=== PATIENT | male | born 1945 | race American Indian/Alaskan Native ===

== ENCOUNTER 2016-12-02 16:31 | Inpatient (IN) | payer MEDICARE, BC ==
[2016-12-02 16:32] VITALS: BMI 22.6
--- NOTE | 2016-12-02 16:42 | C.PDOC ---
History Of Present Illness Patient is a 71 y/o M with HTN, ESRD, CAD, anemia, hep C, presenting with rectal bleeding. Dr. Mckeon, PMD is aware that patient is being sent to ED. Time Seen by Provider: 12/02/16 16:33 Chief Complaint (Nursing): GI Problem Past Medical History Vital Signs: Last Vital Signs Temp 98.8 F 12/02/16 16:33 Pulse 85 12/02/16 16:33 Resp 20 12/02/16 16:33 BP 113/66 12/02/16 16:33 Pulse Ox 98 12/02/16 16:33 - Medical History PMH: CHF, Colonic Polyps, HIV, HTN, Chronic Kidney Disease Surgical History: - [facility] Procedures BYPASS TRACHEA TO CUTANEOUS WITH TRACH DEV, PERC APPROACH (04/02/15) C.A.T. SCAN OF ABDOMEN (06/21/03) ESOPHAGOGASTRODUODENOSCOPY [EGD] W/CLOSED BIOPSY (07/08/14) HEMODIALYSIS (08/03/14) INSERTION OF ENDOTRACHEAL AIRWAY INTO TRACHEA, VIA OPENING (04/02/15) INSERTION OF FEEDING DEVICE INTO STOMACH, PERC APPROACH (04/02/15) INSERTION OF INFUSION DEV INTO SUP VENA CAVA, PERC APPROACH (06/27/15) INTRODUCTION OF NUTRITIONAL INTO UP GI, VIA OPENING (06/27/15) NEBULIZER THERAPY (08/03/14) OCCUPATIONAL THERAPY (08/03/14) PACKED CELL TRANSFUSION (11/05/12) PERCUTAN NEEDLE BX OF LIVER (06/21/03) PERFORMANCE OF URINARY FILTRATION, MULTIPLE (06/27/15) PHYSICAL THERAPY NEC (08/03/14) RESPIRATORY VENTILATION, GREATER THAN 96 CONSECUTIVE HOURS (04/02/15) TRANSFUSE NONAUT PLATELETS IN PERIPH VEIN, PERC (04/02/15) TRANSFUSE NONAUT RED BLOOD CELLS IN PERIPH VEIN, PERC (06/27/15) TU DESTRUC BLADD LES NEC (11/20/12) Family History: States: Unknown Family Hx - Social History Hx Tobacco Use: No Hx Alcohol Use: No Hx Substance Use: No - Immunization History Hx Tetanus Toxoid Vaccination: No Hx Influenza Vaccination: Yes Hx Pneumococcal Vaccination: No Review Of Systems Review Of Systems: ROS cannot be obtained secondary to pt's inabilty to answer questions. Physical Exam - Physical Exam Appears: Chronically Ill, Other (cachetic) Head: Atraumatic, Normacephalic Eye(s): bilateral: Normal Inspection, PERRL, EOMI Neck: Supple Chest: Symmetrical Cardiovascular: Rhythm Regular Respiratory: Normal Breath Sounds, No Rales, No Rhonchi, No Wheezing Gastrointestinal/Abdominal: Soft, No Tenderness, No Mass, No Distention, Other ( peg tube to abdomen) Rectal: Other (bright red blood per rectum) Back: Other (decubitus ulcer) Extremity: Other (edema to b/l upper extremities, thin lower extremities. spontaneous ROM x 4) Neurological/Psych: Other (Alert) ED Course And Treatment - Laboratory Results Result Diagrams: 12/02/16 17:10 12/02/16 17:10 Medical Decision Making Medical Decision Making: Patient presenting with rectal bleeding. Patient hemodynamically stable. Cxray shows "Small left pleural effusion and/or consolidation. Patchy lingular infiltrate. Mediastinal prominence. Right peritracheal opacity, possibly tortuous vasculature. If indicated CT with IV contrast may be considered for further evaluation. Heart size appears borderline enlarged." Patient has normal wbc and no fever. Hgb:9.9 and platelets and coagulation studies WNL. Patient started on protonix and given clear diet. Spoke to Dr. Mckeon and patient to be transferred to [facility]. Disposition - Disposition Disposition: HOSPITALIZED Disposition Time: 18:51 Condition: FAIR - Clinical Impression Clinical Impression: Rectal bleeding
[2016-12-02 17:21] LABS: BASO # 0.1 K/uL (0.0-0.2); BASO % 0.7 % (0.0-2.0); EOS # 0.1 K/uL (0.0-0.7); HEMATOCRIT 29.6 % (35.0-51.0); LYMPH # 2.5 K/uL (1.0-4.3); MEAN CELL VOLUME 92.2 fL (80.0-94.0); MEAN CORPUSCULAR HEMOGLOBIN 30.8 pg (27.0-31.0); MEAN CORPUSCULAR HGB CONC 33.4 g/dL (33.0-37.0); MEAN PLATELET VOLUME 7.8 fL (7.2-11.7); MONO # 0.8 K/uL (0.0-0.8); MONO % 10.7 % (0.0-10.0); NRBC % 0.1 % (0.0-2.0); RED CELL DISTRIBUTION WIDTH 17.9 % (11.5-14.5); WHITE BLOOD COUNT 7.9 K/uL (4.8-10.8)
[2016-12-02 17:34] LABS: ALB/GLOB RATIO 0.7 (1.0-2.1); BILIRUBIN,TOTAL 0.6 mg/dL (0.2-1.3); TOTAL PROTEIN 6.2 g/dL (6.3-8.3)
[2016-12-02 17:35] LABS: CALCIUM 9.3 mg/dl (8.6-10.4)
--- NOTE | 2016-12-02 17:50 | RAD ---
HISTORY: rectal bleeding COMPARISON: Chest x-ray performed 07/01/15 TECHNIQUE: Chest, one view. FINDINGS: LUNGS: Small left pleural effusion and/or consolidation. Patchy lingular infiltrate. No definite pneumothorax. Please note that chest x-ray has limited sensitivity for the detection of pulmonary masses. PLEURA: No significant pleural effusion identified. No definite pneumothorax . CARDIOVASCULAR: Mediastinal prominence. Right peritracheal opacity, possibly tortuous vasculature. Heart size appears borderline enlarged. Atherosclerotic calcifications. OSSEOUS STRUCTURES: No acute osseous abnormality identified. VISUALIZED UPPER ABDOMEN: Unremarkable. OTHER FINDINGS: None. IMPRESSION: Small left pleural effusion and/or consolidation. Patchy lingular infiltrate. Mediastinal prominence. Right peritracheal opacity, possibly tortuous vasculature. If indicated CT with IV contrast may be considered for further evaluation. Heart size appears borderline enlarged.
[2016-12-02] MEDS: Sodium Chloride 0.9% 1,000 ML IV SCH (18:27)
[2016-12-02] MEDS ORDERED: Acetaminophen 650mg/20.3ml solution UD NG PRN (19:40)
[2016-12-02] MEDS ORDERED: Raltegravir 100 mg Chewable Tab PO SCH (19:45)
--- NOTE | 2016-12-02 20:23 | CP.PCM.CON ---
History of Present Illness - History of Present Illness History of Present Illness: pt is seen and examined, full consult is joanna antunez #[id number] for hd in am,start peg feeding Past Patient History - Tetanus Immunizations Tetanus Immunization: Unknown - Past Medical History & Family History Past Medical History?: Yes - Past Social History Smoking Status: Former Smoker - CARDIAC Hx Congestive Heart Failure: Yes Hx Hypertension: Yes - PULMONARY Hx Respiratory Disorders: No Other/Comment: tracheostomy - NEUROLOGICAL Hx Neurological Disorder: No - HEENT Hx HEENT Problems: No - RENAL Hx Chronic Kidney Disease: Yes - ENDOCRINE/METABOLIC Hx Endocrine Disorders: No - HEMATOLOGICAL/ONCOLOGICAL Hx Human Immunodeficiency Virus (HIV): Yes - INTEGUMENTARY Hx Dermatological Problems: No Other/Comment: multiple skin ulcers, bilat back, sacro-coccyx, healing sores both lower exts and buttocks sacral stage 4 ulcer [id number],. left hip unstageable,,stage 3 bilat back,right side 6cm x 2 cm. right mid back skin ulcer stage 2, 6cm x 3 cm,, multiple hip areas in healing stage dsd on back and sacral ulcers, - MUSCULOSKELETAL/RHEUMATOLOGICAL Hx Falls: No - GASTROINTESTINAL Hx Gastrointestinal Disorders: Yes Hx Gastroesophageal Reflux: Yes Hx Hemorrhoids: Yes Other/Comment: PEG tube in place - GENITOURINARY/GYNECOLOGICAL Hx Genitourinary Disorders: Yes Hx Prostate Cancer: Yes (2009 HAD RADIATION WITH SEED IMPLANT; NO SURGERY) Other/Comment: ESRD ON HD pt is anuric - PSYCHIATRIC Hx Substance Use: No - ANESTHESIA Hx Anesthesia: Yes Hx Anesthesia Reactions: No Hx Malignant Hyperthermia: No Meds Allergies/Adverse Reactions: Allergies Allergy/AdvReac Type Severity Reaction Status Date / Time No Known Allergies Allergy Verified 12/02/16 16:50 - Medications Medications: Current Medications Acetaminophen (Tylenol 650mg/20.3ml Solution Ud) 650 mg NG Q6 PRN PRN Reason: Fever >100.4 F Last Admin: 12/02/16 20:15 Dose: 650 mg Albuterol/Ipratropium (Duoneb 3 Mg/0.5 Mg (3 Ml) Ud) 3 ml IH RQ6 [facility] Amlodipine Besylate (Norvasc) 10 mg PO DAILY [facility] Ascorbic Acid (Vitamin C 500 Mg Tab) 500 mg PO BID [facility] Clonidine HCl (Catapres Tts1 0.1 Mg/24 Hr) 1 patch TD QWK [facility] Famotidine (Pepcid) 20 mg PO DAILY [facility] Fosamprenavir Calcium (Lexiva) 700 mg PO BID [facility] Sodium Chloride (Sodium Chloride 0.9%) 1,000 mls @ 60 mls/hr IV .[id number] [facility] Last Admin: 12/02/16 18:27 Dose: 60 mls/hr Levetiracetam (Keppra) 500 mg PO Q12H [facility] Last Admin: 12/02/16 20:11 Dose: 500 mg Piperacillin Sod/Tazobactam Sod (Zosyn) 2.25 gm IV Q6 [facility] Raltegravir (Isentress Chewable) 400 mg PO BID [facility] Ritonavir (Norvir) 100 mg PO DAILY [facility] Zinc Sulfate (Zinc Sulfate 220 Mg Cap) 220 mg PO DAILY [facility] Results - Vital Signs Recent Vital Signs: Last Vital Signs Temp 98.8 F 12/02/16 16:33 Pulse 87 12/02/16 19:25 Resp 16 12/02/16 19:25 BP 111/66 12/02/16 19:25 Pulse Ox 98 12/02/16 19:25 - Labs Result Diagrams: 12/02/16 17:10 12/02/16 17:10
[2016-12-02] MEDS: Albuterol-Ipratrop 3 mg / 0.5 (3 ml) UD IH SCH (22:34)
[2016-12-03] MEDS ORDERED: Piperacillin/Tazobact 2.25 gm Inj IV SCH
[2016-12-03] MEDS: Piperacill/Tazo 2.25gm in Dex 2.25 GM/50 ML BAG IVPB SCH ×5 (00:13→23:42)
[2016-12-03] MEDS: Albuterol-Ipratrop 3 mg / 0.5 (3 ml) UD IH SCH ×4 (01:12→19:20)
--- NOTE | 2016-12-03 05:16 | CON ---
DATE: LOCATION: The patient is located in room 567. REQUESTED BY: Chayito Mckeon MD REASON FOR FOLLOWUP: Endstage renal disease and continuation of the hemodialysis. SUBJECTIVE: Mr. Fontenot is a 71-year-old elderly very pleasant male with a past medical history significant for hypertension, polycystic kidney disease, chronic hepatitis C, endstage renal disease, prostate CA, status post radiation therapy, status post fall more than a year ago followed by tricompartmental bleed requiring intubation and subsequently, the patient underwent tracheostomy and PEG tube placement, and when transferred to [facility], from there after few months the patient was transferred to [facility]. Now, the patient is being admitted to [facility] and [facility] frequently for multiple medical problems. Now the patient was snagged from correction with possible rectal bleed. As per the patient he did not realize and when they are cleaning him the staff found bleeding and the patient was sent to the [facility] for further evaluation. The patient is complaining of lower back pain and difficult to lie down due to pain and ulcers. The patient is not in distress. Denies any chest pain or palpitation. Denies any fever or cough. No abdominal pain. No nausea, vomiting, or diarrhea. PAST MEDICAL HISTORY: Significant for hypertension, polycystic kidney disease, chronic hepatitis C, endstage renal disease, and prostate CA. PAST SURGICAL HISTORY: Status post radiation therapy long time ago, status post tracheostomy, and PEG and clotted left upper extremity AV fistula and status post Perm-A-Cath, and questionable hemorrhoids and status post colonoscopy and multiple decubitus ulcers. ALLERGIES: NO KNOWN DRUG ALLERGIES. SOCIAL HISTORY: No smoking. No alcohol. No drugs. PERSONAL HISTORY: He is and he has a very supportive family. FAMILY HISTORY: Not significant. CURRENT MEDICATIONS: Include clonidine 0.1 mg patch every weekly, DuoNeb inhaler, Isentress 400 mg p.o. b.i.d., Keppra 500 mg p.o. q.12 hours, and Lexiva 700 mg p.o. b.i.d. daily, amlodipine 10 mg daily, Norvir 100 mg daily, Pepcid 20 mg p.o. daily, IV fluids, normal saline at 60 mL per hour, Tylenol, vitamin C 500 mg p.o. b.i.d., zinc sulfate 220 mg p.o. daily, and Zosyn 2.25 g IV q.6 hours. REVIEW OF SYSTEMS: Significant rectal bleed and multiple decubitus ulcers on the back and in the sacral region and gluteal region on the right side. PHYSICAL EXAMINATION GENERAL: Mr. Fontenot is a 71-year-old elderly very cachectic male not in acute distress with multiple decubitus ulcers. VITAL SIGNS: As follows: Blood pressure 102/68, pulse 81, respirations 20, temperature 97.6, saturation 95%, height 6 feet 2 inches, and weight 180 pounds. HEENT: Pupils are normal. Reactive to light and accommodation. Conjunctivae pink. Sclerae anicteric. Tongue is moist. Trachea is midline. CARDIOVASCULAR: Preston at the fifth intercostal space, midclavicular line. S1 and S2 audible. No murmur or gallop. LUNGS: Symmetric in both sides, bilateral breath sounds present. Clear on auscultation. ABDOMEN: Normal in appearance. Soft, tympanic. No guarding. No rigidity. No hepatosplenomegaly. The patient has PEG tube present. CENTRAL NERVOUS SYSTEMS: The patient is alert, awake and oriented x2-3. Sensory and motor system is grossly within normal limits. EXTREMITIES: No cyanosis. No clubbing. No edema in the lower extremities. The patient has swelling in both upper extremities and also the patient has multiple decubitus ulcers, the one on the middle at the sacral region was about 7-8 cm in diameter and appears stage II, and the patient also has unstageable sacral decubitus in the gluteal region. LABORATORY DATA: Include as follows: As of 12/02/2016, WBC 7.9, hemoglobin 9.9, hematocrit 29.6, and platelet 247. PT 11.5, PTT 24. Sodium 133, potassium 4, chloride 96, CO2 28, BUN 34, creatinine 3.4, glucose 91, and calcium 7.3. Total bilirubin 0.6, AST 23, ALT 21, alkaline phosphatase 136. Total protein 6.2 and albumin 2.5. ASSESSMENT: In summary, Mr. Fontenot is a 71-year-old elderly male with a history of hypertension, endstage renal disease, polycystic kidney disease, chronic hepatitis C, prostate carcinoma, status post radiation therapy and rectal bleed, and also bilateral upper extremity swelling and status post fall about more than a year ago with a tricompartmental bleed, status post tracheostomy and PEG and resident of correction for the long time for almost 1 year. PLAN: 1. Endstage renal disease. Continue hemodialysis 3 times a week, Tuesday, Tuesday, and Tuesday. 2. Hypertension. Blood pressure is stable. Continue his current medications clonidine and Norvasc. 3. Anemia. Rule out rectal bleed. 4. Sacral decubiti. Consider general surgery and wound care evaluation and also we will start feeding through the PEG tube Nepro 30 mL per hour and adjust as further dietary evaluation and recommendations. We will schedule for hemodialysis in the a.m. Discussed with the patient's daughter and the patient's at bedside. Overall, prognosis is guarded. Thank you for allowing me participate in your the patient's care. Continue all his current medications. Raul Geller MD
[2016-12-03] MEDS ORDERED: PROTEIN SUPPLEMENT 275 GM PO SCH (10:00)
--- NOTE | 2016-12-03 10:25 | CP.PCM.HP ---
Past Patient History - Tetanus Immunizations Tetanus Immunization: Unknown - Past Medical History & Family History Past Medical History?: Yes - Past Social History Smoking Status: Former Smoker - CARDIAC Hx Congestive Heart Failure: Yes Hx Hypertension: Yes - PULMONARY Hx Respiratory Disorders: No Other/Comment: tracheostomy - NEUROLOGICAL Hx Neurological Disorder: No - HEENT Hx HEENT Problems: No - RENAL Hx Chronic Kidney Disease: Yes - ENDOCRINE/METABOLIC Hx Endocrine Disorders: No - HEMATOLOGICAL/ONCOLOGICAL Hx Human Immunodeficiency Virus (HIV): Yes - INTEGUMENTARY Hx Dermatological Problems: No Other/Comment: multiple skin ulcers, bilat back, sacro-coccyx, healing sores both lower exts and buttocks sacral stage 4 ulcer [id number],. left hip unstageable,,stage 3 bilat back,right side 6cm x 2 cm. right mid back skin ulcer stage 2, 6cm x 3 cm,, multiple hip areas in healing stage dsd on back and sacral ulcers, - MUSCULOSKELETAL/RHEUMATOLOGICAL Hx Falls: No - GASTROINTESTINAL Hx Gastrointestinal Disorders: Yes Hx Gastroesophageal Reflux: Yes Hx Hemorrhoids: Yes Other/Comment: PEG tube in place - GENITOURINARY/GYNECOLOGICAL Hx Genitourinary Disorders: Yes Hx Prostate Cancer: Yes (2010 HAD RADIATION WITH SEED IMPLANT; NO SURGERY) Other/Comment: ESRD ON HD pt is anuric - PSYCHIATRIC Hx Substance Use: No - ANESTHESIA Hx Anesthesia: Yes Hx Anesthesia Reactions: No Hx Malignant Hyperthermia: No Meds Allergies/Adverse Reactions: Allergies Allergy/AdvReac Type Severity Reaction Status Date / Time No Known Allergies Allergy Verified 12/02/16 16:50 Physical Exam - Constitutional Appears: Well - Head Exam Head Exam: ATRAUMATIC, NORMAL INSPECTION, NORMOCEPHALIC - Eye Exam Eye Exam: EOMI, Normal appearance, PERRL Pupil Exam: NORMAL ACCOMODATION, PERRL - ENT Exam ENT Exam: Mucous Membranes Moist, Normal Exam - Neck Exam Neck exam: Positive for: Normal Inspection - Respiratory Exam Respiratory Exam: Decreased Breath Sounds - Cardiovascular Exam Cardiovascular Exam: REGULAR RHYTHM, +S1, +S2 - GI/Abdominal Exam GI & Abdominal Exam: Diminished Bowel Sounds, Soft - Rectal Exam Rectal Exam: Deferred Results - Vital Signs Recent Vital Signs: Last Vital Signs Temp 97.4 F L 12/03/16 07:10 Pulse 74 12/03/16 07:10 Resp 20 08/11/17 07:10 BP 122/75 12/03/16 07:10 Pulse Ox 98 12/03/16 07:10 - Labs Result Diagrams: 12/02/16 17:10 12/02/16 17:10 Labs: Laboratory Results - last 24 hr 12/02/16 21:12 POC Glucose (mg/dL) 79
--- NOTE | 2016-12-03 11:25 | CP.PCM.PN ---
Subjective - Date & Time of Evaluation Date of Evaluation: 12/03/16 Time of Evaluation: 09:50 - Subjective Subjective: Medicine Note- Dr. Mckeon's service Patient was seen and examined at bedside. Patient was brought in due to concerns of rectal bleeding. Patient reports no acute complaints at this time except that he has pain from his decubitus ulcers. Patient is awake and alert but does not know the full details of his history. No events overnight, per nursing. Objective - Vital Signs/Intake and Output Vital Signs (last 24 hours): Temp Pulse Resp BP Pulse Ox 97.4 F L 74 20 122/75 98 12/03/16 07:10 12/03/16 07:10 12/03/16 07:10 12/03/16 07:10 12/03/16 07:10 Intake and Output: 12/03/16 12/03/16 06:59 18:59 Intake Total 340 Output Total 50 Balance 290 - Medications Medications: Current Medications Acetaminophen (Tylenol 650mg/20.3ml Solution Ud) 650 mg NG Q6 PRN PRN Reason: Fever >100.4 F Last Admin: 12/02/16 20:15 Dose: 650 mg Albuterol/Ipratropium (Duoneb 3 Mg/0.5 Mg (3 Ml) Ud) 3 ml IH RQ6 [facility] Last Admin: 12/03/16 07:22 Dose: 3 ml Amlodipine Besylate (Norvasc) 10 mg PO DAILY [facility] Ascorbic Acid (Vitamin C 500 Mg Tab) 500 mg PO BID [facility] Clonidine HCl (Catapres Tts1 0.1 Mg/24 Hr) 1 patch TD QWK [facility] Epoetin Chuck (Procrit) 10,000 unit IV MWF [facility] Famotidine (Pepcid) 20 mg PO DAILY [facility] Fosamprenavir Calcium (Lexiva) 700 mg PO BID [facility] Sodium Chloride (Sodium Chloride 0.9%) 1,000 mls @ 60 mls/hr IV .[id number] [facility] Last Admin: 12/02/16 18:27 Dose: 60 mls/hr Piperacillin Sod/Tazobactam Sod (Zosyn 2.25 Gm Iv Premix) 2.25 gm in 50 mls @ 100 mls/hr IVPB Q6 [facility] Last Admin: 12/03/16 05:02 Dose: 100 mls/hr Levetiracetam (Keppra) 500 mg PO Q12H [facility] Last Admin: 12/03/16 08:43 Dose: 500 mg Paricalcitol (Zemplar) 2 mcg IV MWF [facility] Raltegravir (Isentress) 400 mg PO BID [facility] Last Admin: 12/02/16 21:38 Dose: 400 mg Ritonavir (Norvir) 100 mg PO DAILY [facility] Zinc Sulfate (Zinc Sulfate 220 Mg Cap) 220 mg PO DAILY [facility] - Labs Labs: PT 11.5 SECONDS (9.7-12.2) 12/02/16 17:10 INR 1.0 12/02/16 17:10 APTT 24 SECONDS (21-34) 12/02/16 17:10 - Constitutional Appears: Non-toxic, No Acute Distress - Head Exam Head Exam: ATRAUMATIC, NORMAL INSPECTION, NORMOCEPHALIC - Eye Exam Pupil Exam: NORMAL ACCOMODATION, PERRL - ENT Exam ENT Exam: Mucous Membranes Moist - Respiratory Exam Respiratory Exam: Clear to Ausculation Bilateral, NORMAL BREATHING PATTERN. absent: Prolonged Expiratory Phase, Rales, Rhonchi, Wheezes - Cardiovascular Exam Cardiovascular Exam: REGULAR RHYTHM, +S1, +S2 - GI/Abdominal Exam GI & Abdominal Exam: Soft, Normal Bowel Sounds. absent: Tenderness, Diminished Bowel Sounds, Hypoactive Bowel Sounds - Extremities Exam Extremities Exam: Normal Capillary Refill - Neurological Exam Neurological Exam: Alert, Awake, Oriented x3 - Psychiatric Exam Psychiatric exam: Normal Affect, Normal Mood - Skin Skin Exam: Dry, Normal Color, Warm. absent: Intact Additional comments: Multiple decubitus ulcers, largest one about 7-8cm in diameter, appears to be stage 2-3. Assessment and Plan - Assessment and Plan (Free Text) Assessment: Rectal Bleeding Consult GI- Dr. Damon Hgb 9.9 today IVF NS @ 60cc/hr Multiple Sacral Decubitus Ulcers, varying stages Wound Care Nurse referral Consult ID- Dr. Hernadez ESRD on HD Consult Nephrology- Dr. Geller ESRD MWF Procrit 1000U IV MWF Zemplar 2mcg IV MWF Renal diet Hepatitis C Continue home med: Isentress 400mg PO BID Norvir 100mg PO Daily Lexiva 700mg PO BID Hypertension Norvasc 10mg PO Daily CLonidine 0.1mg Q24h Prophylactic Measure Protonix 40mg PO Daily [facility] Anticoag contraindicated due to rectal bleed
[2016-12-03] MEDS: Epoetin Alfa 10,000 unit/ml Dialysis IV SCH (11:35)
[2016-12-03] MEDS: Paricalcitol 2 mcg/ml Inj IV SCH (11:36)
--- NOTE | 2016-12-03 12:25 | CP.PCM.CON ---
History of Present Illness - History of Present Illness History of Present Illness: 71 yo male with quadraparesis s/p fall with chronic SDH 2014 admitted with rectal bleed r/o malignancy and multiple bed sores from [facility] HIV, Hep C, Prostate Ca, CKD on HD, Review of Systems - Constitutional Constitutional: As Per HPI, Anorexia, Weight Loss - EENT Eyes: absent: As Per HPI, Blind Spots, Blurred Vision, Change in Vision, Decreased Night Vision, Diplopia, Discharge, Dry Eye, Exophthalmos, Floaters, Irritation, Itchy Eyes, Loss of Peripheral Vision, Pain, Photophobia, Requires Corrective Lenses, Sees Flashes, Spots in Vision, Tunnel Vision, Other Visual Disturbances, Loss of Vision, Other Ears: absent: As Per HPI, Decreased Hearing, Ear Discharge, Ear Pain, Tinnitus, Abnormal Hearing, Disequilibrium, Dizziness, Other Nose/Mouth/Throat: absent: As Per HPI, Epistaxis, Nasal Congestion, Nasal Discharge, Nasal Obstruction, Nasal Trauma, Nose Pain, Post Nasal Drip, Sinus Pain, Sinus Pressure, Bleeding Gums, Change in Voice, Dental Pain, Dry Mouth, Dysphagia, Halitosis, Hoarsness, Lip Swelling, Mouth Lesions, Mouth Pain, Odynophagia, Sore Throat, Throat Swelling, Tongue Swelling, Facial Pain, Neck Pain, Neck Mass, Other - Cardiovascular Cardiovascular: absent: As Per HPI, Acrocyanosis, Chest Pain, Chest Pain at Rest , Chest Pain with Activity, Claudication, Diaphoresis, Dyspnea, Dyspnea on Exertion, Edema, Irregular Heart Rhythm, Pain Radiating to Arm/Neck/Jaw, Leg Edema, Leg Ulcers, Lightheadedness, Orthopnea, Palpitations, Paroxysmal Nocturnal Dyspnea, Pedal Edema, Radiating Pain, Rapid Heart Rate, Slow Heart Rate, Syncope, Other - Respiratory Respiratory: absent: As Per HPI, Cough, Dyspnea, Hemoptysis, Dyspnea on Exertion , Wheezing, Snoring, Stridor, Pain on Inspiration, Chest Congestion, Excessive Mucous Production, Change in Mucous Color, Pain with Coughing, Other - Gastrointestinal Gastrointestinal: As Per HPI - Genitourinary Genitourinary: As Per HPI - Musculoskeletal Musculoskeletal: As Per HPI - Integumentary Integumentary: As Per HPI, Wounds - Neurological Neurological: As Per HPI - Psychiatric Psychiatric: absent: As Per HPI, Abnormal Sleep Pattern, Anhedonia, Anxiety, Auditory Hallucinations, Behavioral Changes, Change in Appetite, Change in Libido, Confusion, Depression, Difficulty Concentrating, Hallucinations, Homicidal Ideation, Hopelessness, Irritability, Memory Loss, Mood Swings, Panic Attacks, Paranoia, Suicidal Ideation, Visual Hallucinations, Tactile Hallucinations, Other - Endocrine Endocrine: absent: As Per HPI, Change in Body Appearance, Change in Libido, Cold Intolorance, Deepening of Voice, Excessive Sweating, Fatigue, Flushing, Heat Intolorance, Increase in Ring/Shoe/Hat Size, Palpitations, Polydipsia, Polyphagia, Polyuria, Other - Hematologic/Lymphatic Hematologic: absent: As Per HPI, Easy Bleeding, Easy Bruising, Lymphadenopathy, Other Past Patient History - Tetanus Immunizations Tetanus Immunization: Unknown - Past Medical History & Family History Past Medical History?: Yes - Past Social History Smoking Status: Former Smoker - CARDIAC Hx Congestive Heart Failure: Yes Hx Hypertension: Yes - PULMONARY Hx Respiratory Disorders: No Other/Comment: tracheostomy - NEUROLOGICAL Hx Neurological Disorder: No - HEENT Hx HEENT Problems: No - RENAL Hx Chronic Kidney Disease: Yes - ENDOCRINE/METABOLIC Hx Endocrine Disorders: No - HEMATOLOGICAL/ONCOLOGICAL Hx Human Immunodeficiency Virus (HIV): Yes - INTEGUMENTARY Hx Dermatological Problems: No Other/Comment: multiple skin ulcers, bilat back, sacro-coccyx, healing sores both lower exts and buttocks sacral stage 4 ulcer [id number],. left hip unstageable,,stage 3 bilat back,right side 6cm x 2 cm. right mid back skin ulcer stage 2, 6cm x 3 cm,, multiple hip areas in healing stage dsd on back and sacral ulcers, - MUSCULOSKELETAL/RHEUMATOLOGICAL Hx Falls: No - GASTROINTESTINAL Hx Gastrointestinal Disorders: Yes Hx Gastroesophageal Reflux: Yes Hx Hemorrhoids: Yes Other/Comment: PEG tube in place - GENITOURINARY/GYNECOLOGICAL Hx Genitourinary Disorders: Yes Hx Prostate Cancer: Yes (2010 HAD RADIATION WITH SEED IMPLANT; NO SURGERY) Other/Comment: ESRD ON HD pt is anuric - PSYCHIATRIC Hx Substance Use: No - ANESTHESIA Hx Anesthesia: Yes Hx Anesthesia Reactions: No Hx Malignant Hyperthermia: No Meds Allergies/Adverse Reactions: Allergies Allergy/AdvReac Type Severity Reaction Status Date / Time No Known Allergies Allergy Verified 12/02/16 16:50 - Medications Medications: Current Medications Acetaminophen (Tylenol 650mg/20.3ml Solution Ud) 650 mg NG Q6 PRN PRN Reason: Fever >100.4 F Last Admin: 12/02/16 20:15 Dose: 650 mg Albuterol/Ipratropium (Duoneb 3 Mg/0.5 Mg (3 Ml) Ud) 3 ml IH RQ6 [facility] Last Admin: 12/03/16 07:22 Dose: 3 ml Amlodipine Besylate (Norvasc) 10 mg PO DAILY [facility] Ascorbic Acid (Vitamin C 500 Mg Tab) 500 mg PO BID [facility] Clonidine HCl (Catapres Tts1 0.1 Mg/24 Hr) 1 patch TD QWK [facility] Epoetin Chuck (Procrit) 10,000 unit IV MWF [facility] Last Admin: 12/03/16 11:35 Dose: 10,000 unit Famotidine (Pepcid) 20 mg PO DAILY [facility] Fosamprenavir Calcium (Lexiva) 700 mg PO BID [facility] Sodium Chloride (Sodium Chloride 0.9%) 1,000 mls @ 60 mls/hr IV .[id number] [facility] Last Admin: 12/02/16 18:27 Dose: 60 mls/hr Piperacillin Sod/Tazobactam Sod (Zosyn 2.25 Gm Iv Premix) 2.25 gm in 50 mls @ 100 mls/hr IVPB Q6 [facility] Last Admin: 12/03/16 05:02 Dose: 100 mls/hr Levetiracetam (Keppra) 500 mg PO Q12H [facility] Last Admin: 12/03/16 08:43 Dose: 500 mg Paricalcitol (Zemplar) 2 mcg IV MWF [facility] Last Admin: 12/03/16 11:36 Dose: 2 mcg Raltegravir (Isentress) 400 mg PO BID [facility] Last Admin: 12/02/16 21:38 Dose: 400 mg Ritonavir (Norvir) 100 mg PO DAILY [facility] Zinc Sulfate (Zinc Sulfate 220 Mg Cap) 220 mg PO DAILY [facility] Physical Exam - Constitutional Appears: Cachectic, Chronically Ill - Head Exam Head Exam: NORMOCEPHALIC - Eye Exam Eye Exam: PERRL. absent: Scleral icterus - ENT Exam ENT Exam: Mucous Membranes Dry, Normal External Ear Exam - Neck Exam Neck exam: Negative for: Lymphadenopathy - Respiratory Exam Respiratory Exam: Decreased Breath Sounds, Clear to Auscultation Bilateral - Cardiovascular Exam Cardiovascular Exam: REGULAR RHYTHM, +S1, +S2 - GI/Abdominal Exam GI & Abdominal Exam: Diminished Bowel Sounds, Soft. absent: Tenderness - Rectal Exam Rectal Exam: Deferred - Exam Exam: NORMAL INSPECTION - Extremities Exam Extremities exam: Negative for: pedal edema - Back Exam Back exam: absent: CVA tenderness (L), CVA tenderness (R) Additional comments: multiple skin ulcers, bilat back, sacro-coccyx, healing sores both lower exts and buttocks sacral stage 4 ulcer [id number] 4,. left hip unstageable,,stage 3 bilat back,right side 6cm x 2 cm. right mid back skin ulcer stage 2, 6cm x 3 cm ,, multiple hip areas in healing stage dsd on back and sacral ulcers, - Neurological Exam Neurological exam: Alert, CN II-XII Intact - Psychiatric Exam Psychiatric exam: Depressed - Skin Skin Exam: Abrasion Additional comments: multiple skin ulcers, bilat back, sacro-coccyx, healing sores both lower exts and buttocks sacral stage 4 ulcer [id number] 4,. left hip unstageable,,stage 3 bilat back,right side 6cm x 2 cm. right mid back skin ulcer stage 2, 6cm x 3 cm ,, multiple hip areas in healing stage dsd on back and sacral ulcers, Results - Vital Signs Recent Vital Signs: Last Vital Signs Temp 97.4 F L 12/03/16 10:20 Pulse 77 12/03/16 10:20 Resp 20 12/03/16 10:20 BP 122/68 12/03/16 11:50 Pulse Ox 97 12/03/16 10:20 - Labs Result Diagrams: 12/02/16 17:10 12/02/16 17:10 Labs: Laboratory Results - last 24 hr 12/02/16 21:12 POC Glucose (mg/dL) 79 Assessment & Plan (1) Rectal bleeding Status: Acute (2) Anemia Status: Acute (3) CHF (congestive heart failure) Status: Acute (4) Decubitus skin ulcer Status: Acute (5) ESRD (end stage renal disease) Status: Acute (6) End stage renal disease on dialysis Status: Acute - Assessment and Plan (Free Text) Assessment: panculture cont iv antibiotics GI eval/ imaging consider rx for Hep C once stable
--- NOTE | 2016-12-03 14:32 | CP.PCM.CON ---
<Randal Mkceon - Last Filed: 12/03/16 14:53> History of Present Illness - History of Present Illness History of Present Illness: PGY4 Initial GI Consult Kian Fontenot is a 71 yo male with quadraparesis s/p fall with chronic SDH 2015 admitted with rectal bleed r/o malignancy and multiple bed sores from [facility] who presents with possible GI bleed. As per pt there has been no report of GI bleed. He denies any hematemesis, BRBPR, melena. Pt states that he may have had some episodes in the past but denies any episodes recently. Since the pt has been in the hopital, there is no report of gross GI bleed. Hgb has been stable compared to his baseline due to anemia of chronic disease. He denies any colonoscopy or EGD. Pt states that he will likely refuse a colonscopy even if its offered. PMH: CKD with HD, CHF, HTN, prostate CA with seeds implant, HIV, Hep C, PEG, Stage $, large sacral pressure sore, Intracranial bleeding PSH: AV fistula Family Hx: reviewed and not pertinent Social Hx: former smokerr, quit smoking 15 years ago, denies EtOH use, denies recreational drug use, , retired elementary school social worker Endoscopy hx: unknown, but pt has a PEG so king had an EGD at some point Past Patient History - Tetanus Immunizations Tetanus Immunization: Unknown - Past Medical History & Family History Past Medical History?: Yes - Past Social History Smoking Status: Former Smoker - CARDIAC Hx Congestive Heart Failure: Yes Hx Hypertension: Yes - PULMONARY Hx Respiratory Disorders: No Other/Comment: tracheostomy - NEUROLOGICAL Hx Neurological Disorder: No - HEENT Hx HEENT Problems: No - RENAL Hx Chronic Kidney Disease: Yes - ENDOCRINE/METABOLIC Hx Endocrine Disorders: No - HEMATOLOGICAL/ONCOLOGICAL Hx Human Immunodeficiency Virus (HIV): Yes - INTEGUMENTARY Hx Dermatological Problems: No Other/Comment: multiple skin ulcers, bilat back, sacro-coccyx, healing sores both lower exts and buttocks sacral stage 4 ulcer [id number] 4,. left hip unstageable,,stage 3 bilat back,right side 6cm x 2 cm. right mid back skin ulcer stage 2, 6cm x 3 cm,, multiple hip areas in healing stage dsd on back and sacral ulcers, - MUSCULOSKELETAL/RHEUMATOLOGICAL Hx Falls: No - GASTROINTESTINAL Hx Gastrointestinal Disorders: Yes Hx Gastroesophageal Reflux: Yes Hx Hemorrhoids: Yes Other/Comment: PEG tube in place - GENITOURINARY/GYNECOLOGICAL Hx Genitourinary Disorders: Yes Hx Prostate Cancer: Yes (2009 HAD RADIATION WITH SEED IMPLANT; NO SURGERY) Other/Comment: ESRD ON HD pt is anuric - PSYCHIATRIC Hx Substance Use: No - ANESTHESIA Hx Anesthesia: Yes Hx Anesthesia Reactions: No Hx Malignant Hyperthermia: No Meds Allergies/Adverse Reactions: Allergies Allergy/AdvReac Type Severity Reaction Status Date / Time No Known Allergies Allergy Verified 12/02/16 16:50 - Medications Medications: Current Medications Acetaminophen (Tylenol 650mg/20.3ml Solution Ud) 650 mg NG Q6 PRN PRN Reason: Fever >100.4 F Last Admin: 12/02/16 20:15 Dose: 650 mg Albuterol/Ipratropium (Duoneb 3 Mg/0.5 Mg (3 Ml) Ud) 3 ml IH RQ6 [facility] Last Admin: 12/03/16 13:12 Dose: Not Given Amlodipine Besylate (Norvasc) 10 mg PO DAILY [facility] Last Admin: 12/03/16 14:10 Dose: 10 mg Ascorbic Acid (Vitamin C 500 Mg Tab) 500 mg PO BID [facility] Last Admin: 12/03/16 14:10 Dose: 500 mg Clonidine HCl (Catapres Tts1 0.1 Mg/24 Hr) 1 patch TD QWK [facility] Epoetin Chuck (Procrit) 10,000 unit IV MWF [facility] Last Admin: 12/03/16 11:35 Dose: 10,000 unit Famotidine (Pepcid) 20 mg PO DAILY [facility] Last Admin: 12/03/16 14:10 Dose: 20 mg Fosamprenavir Calcium (Lexiva) 700 mg PO BID [facility] Last Admin: 12/03/16 14:10 Dose: 700 mg Sodium Chloride (Sodium Chloride 0.9%) 1,000 mls @ 60 mls/hr IV .[id number] [facility] Last Admin: 12/02/16 18:27 Dose: 60 mls/hr Piperacillin Sod/Tazobactam Sod (Zosyn 2.25 Gm Iv Premix) 2.25 gm in 50 mls @ 100 mls/hr IVPB Q6 [facility] Last Admin: 12/03/16 14:09 Dose: 100 mls/hr Levetiracetam (Keppra) 500 mg PO Q12H [facility] Last Admin: 12/03/16 08:43 Dose: 500 mg Paricalcitol (Zemplar) 2 mcg IV MWF [facility] Last Admin: 12/03/16 11:36 Dose: 2 mcg Raltegravir (Isentress) 400 mg PO BID [facility] Last Admin: 12/03/16 10:00 Dose: Not Given Ritonavir (Norvir) 100 mg PO DAILY [facility] Last Admin: 12/03/16 14:10 Dose: 100 mg Zinc Sulfate (Zinc Sulfate 220 Mg Cap) 220 mg PO DAILY [facility] Last Admin: 12/03/16 14:10 Dose: 220 mg Physical Exam - Constitutional Appears: Well, In Acute Distress, Cachectic, Chronically Ill - Head Exam Head Exam: NORMOCEPHALIC - Eye Exam Eye Exam: Normal appearance - ENT Exam ENT Exam: Mucous Membranes Moist - Respiratory Exam Respiratory Exam: Clear to Auscultation Bilateral, NORMAL BREATHING PATTERN. absent: Rales, Rhonchi, Wheezes - Cardiovascular Exam Cardiovascular Exam: REGULAR RHYTHM, +S1, +S2 - GI/Abdominal Exam GI & Abdominal Exam: Normal Bowel Sounds, Soft. absent: Organomegaly, Pulsatile Mass, Rebound, Rigid, Tenderness - Extremities Exam Extremities exam: Negative for: pedal edema - Neurological Exam Neurological exam: Alert, Oriented x3 - Psychiatric Exam Psychiatric exam: Normal Affect, Normal Mood - Skin Skin Exam: Dry, Intact, Normal Color, Warm Results - Vital Signs Recent Vital Signs: Last Vital Signs Temp 97.8 F 12/03/16 14:05 Pulse 81 12/03/16 14:05 Resp 20 12/03/16 14:05 BP 120/68 12/03/16 14:05 Pulse Ox 95 12/03/16 14:05 - Labs Result Diagrams: 12/02/16 17:10 12/02/16 17:10 Labs: Laboratory Results - last 24 hr 12/02/16 21:12 POC Glucose (mg/dL) 79 Assessment & Plan - Assessment and Plan (Free Text) Assessment: Kian Fontenot is a 71M w/ sig med hx including quadraplegia, s/p PEG who present from [place] with reports of BRBPR. Pt denies any BRBPR, no report of Gross GI bleed as inpt, and pt refused rectal exam and colonoscopy. 1. Possible GI bleed? 2. Constipation complicated by quadraplegia 3. Dysphagia s/p PEG Plan: -No GI intervention at this time -pt denies any GI bleed and refuses any intervention otherwise -hgb stable, hemodynamically stable -Recommend Miralax BID -Monitor H/H - Would recommend transfusion if hgb <7 or symptomatic -continue PPI D/W Dr. Adams <Cuba Adams - Last Filed: 12/03/16 18:36> Meds - Medications Medications: Current Medications Acetaminophen (Tylenol 650mg/20.3ml Solution Ud) 650 mg NG Q6 PRN PRN Reason: Fever >100.4 F Last Admin: 12/02/16 20:15 Dose: 650 mg Albuterol/Ipratropium (Duoneb 3 Mg/0.5 Mg (3 Ml) Ud) 3 ml IH RQ6 [facility] Last Admin: 12/03/16 13:12 Dose: Not Given Amlodipine Besylate (Norvasc) 10 mg PO DAILY [facility] Last Admin: 12/03/16 14:10 Dose: 10 mg Ascorbic Acid (Vitamin C 500 Mg Tab) 500 mg PO BID [facility] Last Admin: 12/03/16 14:10 Dose: 500 mg Clonidine HCl (Catapres Tts1 0.1 Mg/24 Hr) 1 patch TD QWK [facility] Epoetin Chuck (Procrit) 10,000 unit IV MWF [facility] Last Admin: 12/03/16 11:35 Dose: 10,000 unit Famotidine (Pepcid) 20 mg PO DAILY [facility] Last Admin: 12/03/16 14:10 Dose: 20 mg Fosamprenavir Calcium (Lexiva) 700 mg PO BID [facility] Last Admin: 12/03/16 14:10 Dose: 700 mg Sodium Chloride (Sodium Chloride 0.9%) 1,000 mls @ 60 mls/hr IV .[id number] [facility] Last Admin: 12/02/16 18:27 Dose: 60 mls/hr Piperacillin Sod/Tazobactam Sod (Zosyn 2.25 Gm Iv Premix) 2.25 gm in 50 mls @ 100 mls/hr IVPB Q6 [facility] Last Admin: 12/03/16 14:09 Dose: 100 mls/hr Levetiracetam (Keppra) 500 mg PO Q12H [facility] Last Admin: 08/11/17 08:43 Dose: 500 mg Oxycodone/Acetaminophen (Percocet 5/325 Mg Tab) 1 tab PO Q6H PRN PRN Reason: Pain, moderate (4-7) Stop: 12/06/16 17:18 Paricalcitol (Zemplar) 2 mcg IV MWF [facility] Last Admin: 12/03/16 11:36 Dose: 2 mcg Raltegravir (Isentress) 400 mg PO BID [facility] Last Admin: 12/03/16 10:00 Dose: Not Given Ritonavir (Norvir) 100 mg PO DAILY [facility] Last Admin: 12/03/16 14:10 Dose: 100 mg Zinc Sulfate (Zinc Sulfate 220 Mg Cap) 220 mg PO DAILY [facility] Last Admin: 12/03/16 14:10 Dose: 220 mg Results - Vital Signs Recent Vital Signs: Last Vital Signs Temp 97.4 F L 12/03/16 16:00 Pulse 82 12/03/16 16:00 Resp 20 12/03/16 16:00 BP 114/68 12/03/16 16:00 Pulse Ox 96 12/03/16 16:00 - Labs Result Diagrams: 12/02/16 17:10 12/02/16 17:10 Labs: Laboratory Results - last 24 hr 12/02/16 12/03/16 21:12 14:49 POC Glucose (mg/dL) 79 Stool Occult Blood Positive H Attending/Attestation - Attestation I have personally seen and examined this patient.: Yes I have fully participated in the care of the patient.: Yes I have reviewed all pertinent clinical information: Yes Notes (Text): 12/03/16 18:35 71 year old male with h/o quadraplegia, CVA, h/o PEG admitted with BRBPR. 1. BRBPR 2. Constipation Plan: -No witnessed bleeding in the hospital -he denies bleeding -hgb stable -refuses further evaluation such as colonoscopy -recommend miralax for constipation -will sign off
--- NOTE | 2016-12-03 16:46 | VASCLAB ---
PROCEDURE: Upper Extremity Venous Duplex Exam HISTORY: +4 EDEMA PRIORS: None. TECHNIQUE: Bilateral upper extremity, internal jugular, subclavian, axillary, brachial, ulnar, radial, basilic and upper cephalic veins were evaluated. Flow was assessed with color Doppler, compressibility, assessment of phasic flow and augmentation response. Report prepared by PHYLLIS Perry, RVT FINDINGS: RIGHT: 1. Internal Jugular: 1.1. Compressibility - Fully compressible: Thrombus - None : Flow - Phasic: Augmentation -Normal: Reflux - None. 2. Subclavian: 2.1. Compressibility - Fully compressible: Thrombus - None : Flow - Phasic: Augmentation -Normal: Reflux - None. 3. Axillary: 3.1. Compressibility - Fully compressible: Thrombus - None : Flow - Phasic: Augmentation -Normal: Reflux - None. 4. Brachial: 4.1. Compressibility - Fully compressible: Thrombus - None: Flow - Phasic: Augmentation -Normal: Reflux - None. 5. Ulnar: 5.1. Compressibility - Fully compressible: Thrombus - None: Flow - Phasic: Augmentation -Normal: Reflux - None. 6. Radial: 6.1. Compressibility - Fully compressible: Thrombus - None: Flow - Phasic: Augmentation - Normal: Reflux - None. 7. Cephalic: 7.1. Compressibility - Fully compressible: Thrombus - None: Flow - Phasic: Augmentation -Normal: Reflux - None. 8. Basilic: 8.1. Compressibility - Fully compressible: Thrombus - None: Flow - Phasic: Augmentation -Normal: Reflux - None. LEFT: 1. Internal Jugular: 1.1. Compressibility - Partial: Thrombus - Chronic : Flow - Reduced : Augmentation -None: Reflux - None. 2. Subclavian: 2.1. Compressibility - Fully compressible: Thrombus - None : Flow - Phasic: Augmentation -Normal: Reflux - None. 3. Axillary: 3.1. Compressibility - Fully compressible: Thrombus - None : Flow - Phasic: Augmentation -Normal: Reflux - None. 4. Brachial: 4.1. Compressibility - Fully compressible: Thrombus - None: Flow - Phasic: Augmentation -Normal: Reflux - None. 5. Ulnar: 5.1. Compressibility - Fully compressible: Thrombus - None: Flow - Phasic: Augmentation -Normal: Reflux - None. 6. Radial: 6.1. Compressibility - Fully compressible: Thrombus - None: Flow - Phasic: Augmentation - Normal: Reflux - None. 7. Cephalic: 7.1. Compressibility - Fully compressible: Thrombus - None: Flow - Phasic: Augmentation -Normal: Reflux - None. 8. Basilic: 8.1. Compressibility - Fully compressible: Thrombus - None: Flow - Phasic: Augmentation -Normal: Reflux - None. OTHER FINDINGS: RAMIN Wong notified about the findings. IMPRESSION: Right: No evidence of vein thrombosis of the right upper extremity with excellent venous flow. Normal valve function noted of the right side. 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
[2016-12-03] MEDS: Oxycodone/Acetaminophen 5/325 mg Tab PO PRN (18:41)
--- NOTE | 2016-12-03 20:31 | CP.PCM.PN ---
Subjective - Date & Time of Evaluation Date of Evaluation: 12/03/16 Time of Evaluation: 20:30 - Subjective Subjective: pt sis seen and examined, follow up consult is dictated #[id number], s/p hd today, uf 1.5 lit Objective - Vital Signs/Intake and Output Vital Signs (last 24 hours): Temp Pulse Resp BP Pulse Ox 97.4 F L 82 20 114/68 96 12/03/16 16:00 12/03/16 18:00 12/03/16 16:00 12/03/16 16:00 12/03/16 16:00 Intake and Output: 12/03/16 12/04/16 18:59 06:59 Intake Total 270 Balance 270 - Medications Medications: Current Medications Acetaminophen (Tylenol 650mg/20.3ml Solution Ud) 650 mg NG Q6 PRN PRN Reason: Fever >100.4 F Last Admin: 12/02/16 20:15 Dose: 650 mg Albuterol/Ipratropium (Duoneb 3 Mg/0.5 Mg (3 Ml) Ud) 3 ml IH RQ6 [facility] Last Admin: 12/03/16 19:20 Dose: 3 ml Amlodipine Besylate (Norvasc) 10 mg PO DAILY [facility] Last Admin: 12/03/16 14:10 Dose: 10 mg Ascorbic Acid (Vitamin C 500 Mg Tab) 500 mg PO BID [facility] Last Admin: 12/03/16 18:41 Dose: 500 mg Clonidine HCl (Catapres Tts1 0.1 Mg/24 Hr) 1 patch TD QWK [facility] Epoetin Chuck (Procrit) 10,000 unit IV MWF [facility] Last Admin: 12/03/16 11:35 Dose: 10,000 unit Famotidine (Pepcid) 20 mg PO DAILY [facility] Last Admin: 12/03/16 14:10 Dose: 20 mg Fosamprenavir Calcium (Lexiva) 700 mg PO BID [facility] Last Admin: 12/03/16 18:41 Dose: 700 mg Sodium Chloride (Sodium Chloride 0.9%) 1,000 mls @ 60 mls/hr IV .[id number] [facility] Last Admin: 12/02/16 18:27 Dose: 60 mls/hr Piperacillin Sod/Tazobactam Sod (Zosyn 2.25 Gm Iv Premix) 2.25 gm in 50 mls @ 100 mls/hr IVPB Q6 [facility] Last Admin: 12/03/16 18:42 Dose: 100 mls/hr Levetiracetam (Keppra) 500 mg PO Q12H [facility] Last Admin: 12/03/16 18:44 Dose: 500 mg Oxycodone/Acetaminophen (Percocet 5/325 Mg Tab) 1 tab PO Q6H PRN PRN Reason: Pain, moderate (4-7) Stop: 12/06/16 17:18 Last Admin: 12/03/16 18:41 Dose: 1 tab Paricalcitol (Zemplar) 2 mcg IV MWF [facility] Last Admin: 12/03/16 11:36 Dose: 2 mcg Raltegravir (Isentress) 400 mg PO BID [facility] Last Admin: 12/03/16 18:45 Dose: 400 mg Ritonavir (Norvir) 100 mg PO DAILY [facility] Last Admin: 12/03/16 14:10 Dose: 100 mg Zinc Sulfate (Zinc Sulfate 220 Mg Cap) 220 mg PO DAILY [facility] Last Admin: 12/03/16 14:10 Dose: 220 mg - Labs Labs: PT 11.5 SECONDS (9.7-12.2) 12/02/16 17:10 INR 1.0 12/02/16 17:10 APTT 24 SECONDS (21-34) 12/02/16 17:10
[2016-12-03] MEDS: Sodium Chloride 0.9% 1,000 ML IV SCH (20:47)
[2016-12-04] MEDS: Albuterol-Ipratrop 3 mg / 0.5 (3 ml) UD IH SCH ×4 (01:54→19:50)
--- NOTE | 2016-12-04 04:02 | CON ---
FOLLOWUP RENAL CONSULTATION The patient is located in room 567, bed B. REQUESTED BY: Chayito Mckeon MD REASON FOR FOLLOWUP: End-stage renal disease and continuation of the hemodialysis. SUBJECTIVE: The patient is a 71-year-old elderly male with a history of hypertension, polycystic kidney disease, chronic hepatitis C, prostate CA, status post radiation therapy, end-stage renal disease, status post fall about more than a year ago with a tricompartmental bleed, status post tracheostomy and PEG, resident of [facility] for the last one year, was recently discharged from the [facility] after prolonged hospitalization more than a month almost. Now,k the patient was admitted with rectal bleed with multiple decubitus ulcers and cachexia. The patient is not in distress. The patient underwent hemodialysis today, had ultrafiltration about 1.5 L. The patient was also started on a PEG feeding. Not in distress. Denies any complaints. PHYSICAL EXAMINATION VITAL SIGNS: This evening are as follows: Blood pressure 114/68, pulse 82, respirations 20, temperature 97.4 and saturation 96%. Height 6 feet 2 inches and weight is 144 pounds. GENERAL: The patient is a 71-year-old elderly male, very cachetic, has edema of the upper extremities, not in distress. HEENT: Pupils normal, reactive to light and accommodation. Conjunctivae pink. Sclerae anicteric. Tongue is moist. Trachea is midline. The patient has a scar in the tracheostomy side. LUNGS: Symmetry on both sides. Bilateral breath sounds present. Occasional basal crackles present. CARDIOVASCULAR SYSTEM: [place] at the fifth intercostal space, midclavicular line. S1 and S2 audible. No murmur or gallop. ABDOMEN: Normal in appearance, soft, and tympanic. No guarding. No rigidity. No hepatosplenomegaly. The patient has a PEG tube. CENTRAL NERVOUS SYSTEM: The patient is drowsy, arousable, following commands. EXTREMITIES: No cyanosis. No clubbing. No edema in both lower extremities. The patient has a swelling of the both upper extremities. CURRENT MEDICATIONS: Include as follows: Clonidine 0.1 mg q. 24 hours, DuoNeb inhaler, Centrex 500 mg p.o. q. 12 hours, 400 mg p.o. b.i.d., Keppra 500 mg p.o. q. 12 hours, and Lexiva 700 mg p.o. b.i.d., amlodipine 10 mg daily, Norvir 100 mg daily, Pepcid 20 mg daily, Percocet one tablet daily, Procrit 10,000 three times a week, Tylenol, ascorbic acid, Zemplar, zinc sulfate and Zosyn 2.25 g IV q. 6 hours. LABORATORY DATA: Include as follows: As of 12/02/2016, hemoglobin 9.9, hematocrit 29.6. Sodium 133, potassium 4, chloride 96, CO2 of 28, BUN 34, creatinine 3.4, glucose 91, and calcium 9.3. Total bilirubin 0.6, AST 23, ALT 21, alkaline phosphatase 136. Total protein 6.2 and albumin 2.5. Corrected calcium is about 10.5. ASSESSMENT: In summary, the patient is a 71-year-old elderly male with a history of hypertension, polycystic kidney disease, chronic hepatitis C, end-stage renal disease, cachexia with internal hemorrhoids, was admitted with rectal bleed from the [facility] and also multiple decubitus ulcers. 1. End-stage renal disease. Continue hemodialysis 3 times a week, Tuesday, Tuesday, and Tuesday. 2. Anemia secondary to renal failure. 3. Cachexia secondary to decreased p.o. intake. 4. Decubitus ulcers secondary to bedridden most likely. PLAN: Continue PEG feeding and consider uploading supplement Pro-Stat 30 g p.o. b.i.d. by PEG tube. Follow up with dietary recommendations also. Continue IV antibiotics and follow up with the evidence specialist for further management of decubitus ulcers. We will follow with you. Thank you for allowing me to participate in your the patient's care. Overall prognosis is very poor. The patient underwent hemodialysis today, had ultrafiltration about 1.5 liters. Discontinue IV fluids. Raul Geller MD
[2016-12-04] MEDS: Piperacill/Tazo 2.25gm in Dex 2.25 GM/50 ML BAG IVPB SCH ×4 (05:04→23:51)
--- NOTE | 2016-12-04 08:24 | CP.PCM.PN ---
<Corazon Self - Last Filed: 12/04/16 10:18> Subjective - Date & Time of Evaluation Date of Evaluation: 12/04/16 Time of Evaluation: 08:21 - Subjective Subjective: Gastroenterology Fellow/PGY5 progress Note Tolerating tube feeds with minimal oral intake yesterday. Plans to eat more over the weekend. Nursing confirms no residuals overnight and PEG tube was not clogged after second nursing staff confirmed return through PEG tube. No signs of rectal bleeding by patient or nursing staff. A 12-point review of systems negative except for as above. Objective - Vital Signs/Intake and Output Vital Signs (last 24 hours): Temp Pulse Resp BP Pulse Ox 98.3 F 76 18 138/64 100 12/04/16 07:20 12/04/16 07:20 12/04/16 07:20 12/04/16 07:20 12/04/16 07:20 - Medications Medications: Current Medications Acetaminophen (Tylenol 650mg/20.3ml Solution Ud) 650 mg NG Q6 PRN PRN Reason: Fever >100.4 F Last Admin: 12/02/16 20:15 Dose: 650 mg Albuterol/Ipratropium (Duoneb 3 Mg/0.5 Mg (3 Ml) Ud) 3 ml IH RQ6 [facility] Last Admin: 12/04/16 01:54 Dose: Not Given Amlodipine Besylate (Norvasc) 10 mg PO DAILY [facility] Last Admin: 12/03/16 14:10 Dose: 10 mg Ascorbic Acid (Vitamin C 500 Mg Tab) 500 mg PO BID [facility] Last Admin: 12/03/16 18:41 Dose: 500 mg Clonidine HCl (Catapres Tts1 0.1 Mg/24 Hr) 1 patch TD QWK [facility] Epoetin Chuck (Procrit) 10,000 unit IV MWF [facility] Last Admin: 12/03/16 11:35 Dose: 10,000 unit Famotidine (Pepcid) 20 mg PO DAILY [facility] Last Admin: 12/03/16 14:10 Dose: 20 mg Fosamprenavir Calcium (Lexiva) 700 mg PO BID [facility] Last Admin: 12/03/16 18:41 Dose: 700 mg Piperacillin Sod/Tazobactam Sod (Zosyn 2.25 Gm Iv Premix) 2.25 gm in 50 mls @ 100 mls/hr IVPB Q6 [facility] Last Admin: 12/04/16 05:04 Dose: 100 mls/hr Levetiracetam (Keppra) 500 mg PO Q12H [facility] Last Admin: 12/04/16 08:16 Dose: Not Given Oxycodone/Acetaminophen (Percocet 5/325 Mg Tab) 1 tab PO Q6H PRN PRN Reason: Pain, moderate (4-7) Stop: 12/06/16 17:18 Last Admin: 12/03/16 18:41 Dose: 1 tab Paricalcitol (Zemplar) 2 mcg IV MWF [facility] Last Admin: 12/03/16 11:36 Dose: 2 mcg Raltegravir (Isentress) 400 mg PO BID [facility] Last Admin: 12/03/16 18:45 Dose: 400 mg Ritonavir (Norvir) 100 mg PO DAILY [facility] Last Admin: 12/03/16 14:10 Dose: 100 mg Zinc Sulfate (Zinc Sulfate 220 Mg Cap) 220 mg PO DAILY [facility] Last Admin: 12/03/16 14:10 Dose: 220 mg - Labs Labs: PT 11.5 SECONDS (9.7-12.2) 12/02/16 17:10 INR 1.0 12/02/16 17:10 APTT 24 SECONDS (21-34) 12/02/16 17:10 - Constitutional Appears: Non-toxic, No Acute Distress - Head Exam Head Exam: ATRAUMATIC, NORMOCEPHALIC - Eye Exam Eye Exam: EOMI, PERRL Pupil Exam: PERRL. absent: Miosis, Mydriatic - ENT Exam ENT Exam: Mucous Membranes Moist, Normal Oropharynx - Neck Exam Neck Exam: Normal Inspection - Respiratory Exam Respiratory Exam: Clear to Ausculation Bilateral. absent: Rales, Rhonchi, Wheezes - Cardiovascular Exam Cardiovascular Exam: RRR, +S1, +S2. absent: Gallop, Rubs - GI/Abdominal Exam GI & Abdominal Exam: Soft, Normal Bowel Sounds. absent: Distended, Firm, Guarding, Rigid, Tenderness, Organomegaly, Rebound Additional comments: LUQ PEG site C/D/I, old feeding noted on wall of tubing - Extremities Exam Extremities Exam: Pedal Edema Additional comments: B/L UE edema - Neurological Exam Neurological Exam: Alert, Awake - Psychiatric Exam Psychiatric exam: Normal Affect, Normal Mood - Skin Skin Exam: Dry, Normal Color, Warm Additional comments: multiple sacral decubitus ulcers Assessment and Plan - Assessment and Plan (Free Text) Assessment: 71 year old male with history of Hypertension, ESRD on HD MWF, Prostate cancer s /p radiation and brachytherapy,HIV on HAART, Hepatitis C(tx naive as of 2014), 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 Active treatment of anemia secondary to ESRD with concern for rectal bleeding and constipation. GI re-consulted for PEG tube being clogged. Prior EGD 06/2014 showed gastritis, prepyloric gastric varix , and hiatal hernia. No prior colonoscopy. Plan: >PEG tube functioning well, tube feeds tolerated, no residuals >will exchange PEG tube at bedside on Tuesday >continue pleasure feeds as tolerated >no overt GI blood loss >no labs since 12/02/16 >trend H/H >refused rectal exam >counselled on endoscopic evaluation- refuses colonoscopy >thank you for opportunity to participate in the care of this patient <Talat Damno - Last Filed: 12/04/16 10:37> Objective - Vital Signs/Intake and Output Vital Signs (last 24 hours): Temp Pulse Resp BP Pulse Ox 98.3 F 76 18 138/64 100 12/04/16 07:20 12/04/16 07:20 12/04/16 07:20 12/04/16 07:20 12/04/16 07:20 - Medications Medications: Current Medications Acetaminophen (Tylenol 650mg/20.3ml Solution Ud) 650 mg NG Q6 PRN PRN Reason: Fever >100.4 F Last Admin: 12/02/16 20:15 Dose: 650 mg Albuterol/Ipratropium (Duoneb 3 Mg/0.5 Mg (3 Ml) Ud) 3 ml IH RQ6 [facility] Last Admin: 12/04/16 07:55 Dose: 3 ml Amlodipine Besylate (Norvasc) 10 mg PO DAILY [facility] Last Admin: 12/04/16 09:47 Dose: 10 mg Ascorbic Acid (Vitamin C 500 Mg Tab) 500 mg PO BID [facility] Last Admin: 12/03/16 18:41 Dose: 500 mg Clonidine HCl (Catapres Tts1 0.1 Mg/24 Hr) 1 patch TD QWK [facility] Epoetin Chuck (Procrit) 10,000 unit IV MWF [facility] Last Admin: 12/03/16 11:35 Dose: 10,000 unit Famotidine (Pepcid) 20 mg PO DAILY [facility] Last Admin: 12/04/16 09:47 Dose: 20 mg Fosamprenavir Calcium (Lexiva) 700 mg PO BID [facility] Last Admin: 12/04/16 09:47 Dose: 700 mg Piperacillin Sod/Tazobactam Sod (Zosyn 2.25 Gm Iv Premix) 2.25 gm in 50 mls @ 100 mls/hr IVPB Q6 [facility] Last Admin: 12/04/16 05:04 Dose: 100 mls/hr Levetiracetam (Keppra) 500 mg PO Q12H [facility] Last Admin: 12/04/16 08:16 Dose: Not Given Oxycodone/Acetaminophen (Percocet 5/325 Mg Tab) 1 tab PO Q6H PRN PRN Reason: Pain, moderate (4-7) Stop: 12/06/16 17:18 Last Admin: 12/03/16 18:41 Dose: 1 tab Paricalcitol (Zemplar) 2 mcg IV MWF [facility] Last Admin: 12/03/16 11:36 Dose: 2 mcg Raltegravir (Isentress) 400 mg PO BID [facility] Last Admin: 12/04/16 09:47 Dose: 400 mg Ritonavir (Norvir) 100 mg PO DAILY [facility] Last Admin: 12/04/16 09:47 Dose: 100 mg Zinc Sulfate (Zinc Sulfate 220 Mg Cap) 220 mg PO DAILY [facility] Last Admin: 12/04/16 09:47 Dose: 220 mg - Labs Labs: PT 11.5 SECONDS (9.7-12.2) 12/02/16 17:10 INR 1.0 12/02/16 17:10 APTT 24 SECONDS (21-34) 12/02/16 17:10 Attending/Attestation - Attestation I have personally seen and examined this patient.: Yes I have fully participated in the care of the patient.: Yes I have reviewed all pertinent clinical information, including history, physical exam and plan: Yes Notes (Text): 12/04/16 10:33 I have seen and examined patient with GI fellow. No acute events overnight, he is seen resting in bed comfortably. He denies abdominal pain, nausea, vomiting , fever/chills. No episodes of rectal bleeding reported as per patient. He is tolerating tube feeding without difficulty. Review of vitals from today are normal. HTN ESRD on HD HIV on HAART HCV Quadraplegia secondary to traumatic injury, receiving PEG feeding - H/H stable, continue to monitor, no overt bleeding noted. Patient adamantly refusing any potential elective endoscopic evaluation. Risks/benefits of this strategy explained to patient, he understands and is willing to accept risks. - Continue with ongoing care as per primary medical team - Gastrostomy tube evaluated and appears to be functioning well without any leakage or active infection, though tubing is rather old. If patient remains in hospital, can perform a bedside tube exchange on tuesday, although this can also be performed electively as outpatient.
--- NOTE | 2016-12-04 11:37 | CP.PCM.PN ---
Subjective - Date & Time of Evaluation Date of Evaluation: 12/04/16 Time of Evaluation: 10:00 - Subjective Subjective: clinically same Objective - Vital Signs/Intake and Output Vital Signs (last 24 hours): Temp Pulse Resp BP Pulse Ox 98.3 F 76 18 138/64 100 12/04/16 07:20 12/04/16 07:20 12/04/16 07:20 12/04/16 07:20 12/04/16 07:20 - Medications Medications: Current Medications Acetaminophen (Tylenol 650mg/20.3ml Solution Ud) 650 mg NG Q6 PRN PRN Reason: Fever >100.4 F Last Admin: 12/02/16 20:15 Dose: 650 mg Albuterol/Ipratropium (Duoneb 3 Mg/0.5 Mg (3 Ml) Ud) 3 ml IH RQ6 [facility] Last Admin: 12/04/16 07:55 Dose: 3 ml Amlodipine Besylate (Norvasc) 10 mg PO DAILY [facility] Last Admin: 12/04/16 09:47 Dose: 10 mg Ascorbic Acid (Vitamin C 500 Mg Tab) 500 mg PO BID [facility] Last Admin: 12/04/16 10:54 Dose: Not Given Clonidine HCl (Catapres Tts1 0.1 Mg/24 Hr) 1 patch TD QWK [facility] Epoetin Chuck (Procrit) 10,000 unit IV MWF [facility] Last Admin: 12/03/16 11:35 Dose: 10,000 unit Famotidine (Pepcid) 20 mg PO DAILY [facility] Last Admin: 12/04/16 09:47 Dose: 20 mg Fosamprenavir Calcium (Lexiva) 700 mg PO BID [facility] Last Admin: 12/04/16 09:47 Dose: 700 mg Piperacillin Sod/Tazobactam Sod (Zosyn 2.25 Gm Iv Premix) 2.25 gm in 50 mls @ 100 mls/hr IVPB Q6 [facility] Last Admin: 12/04/16 05:04 Dose: 100 mls/hr Levetiracetam (Keppra) 500 mg PO Q12H [facility] Last Admin: 12/04/16 08:16 Dose: Not Given Oxycodone/Acetaminophen (Percocet 5/325 Mg Tab) 1 tab PO Q6H PRN PRN Reason: Pain, moderate (4-7) Stop: 12/06/16 17:18 Last Admin: 12/03/16 18:41 Dose: 1 tab Paricalcitol (Zemplar) 2 mcg IV MWF [facility] Last Admin: 12/03/16 11:36 Dose: 2 mcg Raltegravir (Isentress) 400 mg PO BID [facility] Last Admin: 12/04/16 09:47 Dose: 400 mg Ritonavir (Norvir) 100 mg PO DAILY [facility] Last Admin: 12/04/16 09:47 Dose: 100 mg Zinc Sulfate (Zinc Sulfate 220 Mg Cap) 220 mg PO DAILY [facility] Last Admin: 12/04/16 09:47 Dose: 220 mg - Labs Labs: PT 11.5 SECONDS (9.7-12.2) 12/02/16 17:10 INR 1.0 12/02/16 17:10 APTT 24 SECONDS (21-34) 12/02/16 17:10 - Constitutional Appears: Well - Head Exam Head Exam: ATRAUMATIC, NORMAL INSPECTION, NORMOCEPHALIC - Eye Exam Eye Exam: EOMI, Normal appearance, PERRL Pupil Exam: NORMAL ACCOMODATION, PERRL - ENT Exam ENT Exam: Mucous Membranes Moist, Normal Exam - Neck Exam Neck Exam: Full ROM, Normal Inspection. absent: Lymphadenopathy - Respiratory Exam Respiratory Exam: Decreased Breath Sounds - Cardiovascular Exam Cardiovascular Exam: REGULAR RHYTHM, +S1, +S2 - GI/Abdominal Exam GI & Abdominal Exam: Soft, Diminished Bowel Sounds - Rectal Exam Rectal Exam: Deferred Assessment and Plan - Assessment and Plan (Free Text) Plan: Continue same no more GI bleeding patient's G-tube is not functioning well as per the nurse spoke to Dr. Damon to says that tube is same but that is also he is going to change the tubing possibly on Tuesday Monitor for the rectal bleed Continue same We cannot given Eliquis because of DVT in the hands We will talk to the family Possible PICC line is patient refusing the blood test if family agrees
--- NOTE | 2016-12-04 15:07 | CP.PCM.PN ---
Subjective - Date & Time of Evaluation Date of Evaluation: 12/04/16 Time of Evaluation: 15:06 - Subjective Subjective: pt seen and examined, follow up consult is dictated #[id number] Objective - Vital Signs/Intake and Output Vital Signs (last 24 hours): Temp Pulse Resp BP Pulse Ox 98.3 F 76 18 138/64 100 12/04/16 07:20 12/04/16 07:20 12/04/16 07:20 12/04/16 07:20 12/04/16 07:20 Intake and Output: 12/04/16 12/04/16 06:59 18:59 Intake Total 240 Balance 240 - Medications Medications: Current Medications Acetaminophen (Tylenol 650mg/20.3ml Solution Ud) 650 mg NG Q6 PRN PRN Reason: Fever >100.4 F Last Admin: 12/02/16 20:15 Dose: 650 mg Albuterol/Ipratropium (Duoneb 3 Mg/0.5 Mg (3 Ml) Ud) 3 ml IH RQ6 [facility] Last Admin: 12/04/16 13:32 Dose: 3 ml Amlodipine Besylate (Norvasc) 10 mg PO DAILY [facility] Last Admin: 12/04/16 09:47 Dose: 10 mg Ascorbic Acid (Vitamin C 500 Mg Tab) 500 mg PO BID [facility] Last Admin: 12/04/16 10:54 Dose: Not Given Clonidine HCl (Catapres Tts1 0.1 Mg/24 Hr) 1 patch TD QWK [facility] Epoetin Chuck (Procrit) 10,000 unit IV MWF [facility] Last Admin: 12/03/16 11:35 Dose: 10,000 unit Famotidine (Pepcid) 20 mg PO DAILY [facility] Last Admin: 12/04/16 09:47 Dose: 20 mg Fosamprenavir Calcium (Lexiva) 700 mg PO BID [facility] Last Admin: 12/04/16 09:47 Dose: 700 mg Piperacillin Sod/Tazobactam Sod (Zosyn 2.25 Gm Iv Premix) 2.25 gm in 50 mls @ 100 mls/hr IVPB Q6 [facility] Last Admin: 12/04/16 12:01 Dose: 100 mls/hr Levetiracetam (Keppra) 500 mg PO Q12H [facility] Last Admin: 12/04/16 08:16 Dose: Not Given Oxycodone/Acetaminophen (Percocet 5/325 Mg Tab) 1 tab PO Q6H PRN PRN Reason: Pain, moderate (4-7) Stop: 12/06/16 17:18 Last Admin: 12/03/16 18:41 Dose: 1 tab Paricalcitol (Zemplar) 2 mcg IV MWF [facility] Last Admin: 12/03/16 11:36 Dose: 2 mcg Raltegravir (Isentress) 400 mg PO BID [facility] Last Admin: 12/04/16 09:47 Dose: 400 mg Ritonavir (Norvir) 100 mg PO DAILY [facility] Last Admin: 12/04/16 09:47 Dose: 100 mg Zinc Sulfate (Zinc Sulfate 220 Mg Cap) 220 mg PO DAILY [facility] Last Admin: 12/04/16 09:47 Dose: 220 mg - Labs Labs: PT 11.5 SECONDS (9.7-12.2) 12/02/16 17:10 INR 1.0 12/02/16 17:10 APTT 24 SECONDS (21-34) 12/02/16 17:10
[2016-12-05] MEDS: Albuterol-Ipratrop 3 mg / 0.5 (3 ml) UD IH SCH ×4 (01:39→20:05)
[2016-12-05] MEDS: Piperacill/Tazo 2.25gm in Dex 2.25 GM/50 ML BAG IVPB SCH ×3 (05:28→18:55)
--- NOTE | 2016-12-05 05:48 | PN ---
FOLLOWUP RENAL CONSULTATION DATE: 12/04/2016 LOCATION: The patient is located in room 567, bed B. REQUESTED BY: Chayito Mckeon MD REASON FOR FOLLOWUP: End-stage renal disease and continuation of the hemodialysis. HISTORY OF PRESENT ILLNESS: Mr. Fontenot is a 71-year-old elderly male with a history of hypertension; polycystic kidney disease; chronic hepatitis C; end-stage renal disease; status post fall and tricompartmental bleed in the brain, intracranial, status post trach and PEG, and gradually trach was closed and weaned off. The patient was admitted from the group home with chief complaints of rectal bleed and decreased p.o. intake and also multiple sacral decubitus ulcers. The patient is slightly confused today and not in distress. No chest pain. No palpation. PHYSICAL EXAMINATION: VITAL SIGNS: As follows: Blood pressure 138/64, pulse 76, respirations 18, temperature 98.3 and saturation 100%. Height 6 feet 2 inches and weight is 144 pounds. BMI is 18. GENERAL: Mr. Fontenot is a 71-year-old elderly, very cachectic male with multiple sacral decubiti. HEENT: Pupils normal, reactive to light and accommodation. Conjunctivae pink. Sclerae anicteric. Tongue and lips are dry. LUNGS: Symmetry on both sides. Bilateral breath sounds present. CARDIOVASCULAR SYSTEM: [place] at the fifth intercostal space, midclavicular line. S1 and S2 audible. No murmur or gallop. ABDOMEN: Normal in appearance, soft, and tympanic. No guarding. No hepatosplenomegaly. CENTRAL NERVOUS SYSTEM: The patient is awake, following simple commands, confused. Sensory and motor system is grossly within normal limits. EXTREMITIES: No cyanosis. No clubbing. No edema. The patient has multiple sacral decubitus ulcers. CURRENT MEDICATIONS: Include as follows: Clonidine patch TTS 1 q. 24 hours, DuoNeb inhaler, raltegravir, levetiracetam which is Keppra 500 mg q. 12 hours, Lexiva 700 mg b.i.d., Norvasc 10 mg daily, ritonavir 100 mg p.o. daily, Pepcid 20 mg daily, Percocet one tablet q. 6 hours p.r.n., Procrit 10,000 three times a week, Tylenol, ascorbic acid 500 mg b.i.d., Zemplar 2 mcg three times a week and Zosyn 2.25 g q. 6 hours. LABORATORY DATA: No new labs are available. Stool for occult blood is positive, and as of 12/02/2016, potassium is 4, BUN and creatinine 34 and 3.4. Total protein 6.2 and albumin is 2.5. No cultures are available. ASSESSMENT: In summary, Mr. Fontenot is a 71-year-old elderly male with a history of hypertension, polycystic kidney disease, chronic hepatitis C, status post tricompartmental bleed, status post tracheostomy and PEG and weaned off from the tracheostomy with multiple decubitus ulcers, was also admitted with rectal bleed and history of hemorrhoids in the past and status post colonoscopy about a few weeks ago in [facility] [place] [facility]. 1. End-stage renal disease. Continue hemodialysis 3 times a week, Tuesday, Tuesday, and Tuesday. 2. Multiple decubitus ulcers and bedsores, continue wound care and follow up with interactive media marketing specialist. 3. Hypertension, blood pressure stable. 4. Human immunodeficiency virus positive. Continue antiretroviral medications. Consider to change Zosyn to 2.25 g IV q. 8 hours and also consider to hold analgesics for confusion and we will also add free water 200 mL q. 6 hours by PEG. Thank you for allowing me to participate in our patient's care and for HD on Tuesday. Raul Geller MD
[2016-12-05 08:41] LABS: BASO % 1.1 % (0.0-2.0); EOS # 0.1 K/uL (0.0-0.7); EOS % 2.3 % (0.0-4.0); HEMATOCRIT 27.8 % (35.0-51.0); LYMPH # 1.9 K/uL (1.0-4.3); LYMPH % 44.2 % (20.0-40.0); MEAN CELL VOLUME 92.2 fL (80.0-94.0); MEAN CORPUSCULAR HEMOGLOBIN 30.5 pg (27.0-31.0); MEAN CORPUSCULAR HGB CONC 33.1 g/dL (33.0-37.0); MEAN PLATELET VOLUME 7.2 fL (7.2-11.7); MONO # 0.6 K/uL (0.0-0.8); MONO % 12.8 % (0.0-10.0); NRBC % 0.1 % (0.0-2.0); WHITE BLOOD COUNT 4.3 K/uL (4.8-10.8)
[2016-12-05 08:54] LABS: POTASSIUM 3.8 mmol/L (3.6-5.2)
[2016-12-05 08:57] LABS: ALB/GLOB RATIO 0.6 (1.0-2.1); BILIRUBIN,TOTAL 0.5 mg/dL (0.2-1.3); TOTAL PROTEIN 5.7 g/dL (6.3-8.3)
[2016-12-05 08:58] LABS: CALCIUM 9.7 mg/dl (8.6-10.4)
[2016-12-05] MEDS: Oxycodone/Acetaminophen 5/325 mg Tab PO PRN (09:51)
--- NOTE | 2016-12-05 09:54 | CP.PCM.PN ---
Subjective - Date & Time of Evaluation Date of Evaluation: 12/05/16 Time of Evaluation: 10:40 - Subjective Subjective: clinically same Objective - Vital Signs/Intake and Output Vital Signs (last 24 hours): Temp Pulse Resp BP Pulse Ox 97 F L 85 20 145/77 97 12/05/16 08:43 12/05/16 08:43 12/05/16 08:43 12/05/16 08:43 12/05/16 08:43 - Medications Medications: Current Medications Acetaminophen (Tylenol 650mg/20.3ml Solution Ud) 650 mg NG Q6 PRN PRN Reason: Fever >100.4 F Last Admin: 12/02/16 20:15 Dose: 650 mg Albuterol/Ipratropium (Duoneb 3 Mg/0.5 Mg (3 Ml) Ud) 3 ml IH RQ6 [facility] Last Admin: 12/05/16 08:02 Dose: 3 ml Amlodipine Besylate (Norvasc) 10 mg PO DAILY [facility] Last Admin: 12/05/16 09:48 Dose: 10 mg Ascorbic Acid (Vitamin C 500 Mg Tab) 500 mg PO BID [facility] Last Admin: 12/05/16 09:48 Dose: 500 mg Clonidine HCl (Catapres Tts1 0.1 Mg/24 Hr) 1 patch TD QWK [facility] Epoetin Chuck (Procrit) 10,000 unit IV MWF [facility] Last Admin: 12/03/16 11:35 Dose: 10,000 unit Famotidine (Pepcid) 20 mg PO DAILY [facility] Last Admin: 12/05/16 09:47 Dose: 20 mg Fosamprenavir Calcium (Lexiva) 700 mg PO BID [facility] Last Admin: 12/05/16 09:48 Dose: 700 mg Piperacillin Sod/Tazobactam Sod (Zosyn 2.25 Gm Iv Premix) 2.25 gm in 50 mls @ 100 mls/hr IVPB Q6 [facility] Last Admin: 12/05/16 05:28 Dose: 100 mls/hr Levetiracetam (Keppra) 500 mg PO Q12H [facility] Last Admin: 12/05/16 09:51 Dose: 500 mg Oxycodone/Acetaminophen (Percocet 5/325 Mg Tab) 1 tab PO Q6H PRN PRN Reason: Pain, moderate (4-7) Stop: 12/06/16 17:18 Last Admin: 12/05/16 09:51 Dose: 1 tab Paricalcitol (Zemplar) 2 mcg IV MWF [facility] Last Admin: 12/03/16 11:36 Dose: 2 mcg Raltegravir (Isentress) 400 mg PO BID [facility] Last Admin: 12/05/16 09:48 Dose: 400 mg Ritonavir (Norvir) 100 mg PO DAILY [facility] Last Admin: 12/05/16 09:48 Dose: 100 mg Zinc Sulfate (Zinc Sulfate 220 Mg Cap) 220 mg PO DAILY [facility] Last Admin: 12/05/16 09:48 Dose: 220 mg - Labs Labs: 12/05/16 08:20 12/05/16 08:20 PT 11.5 SECONDS (9.7-12.2) 12/02/16 17:10 INR 1.0 12/02/16 17:10 APTT 24 SECONDS (21-34) 12/02/16 17:10 - Constitutional Appears: Well - Head Exam Head Exam: ATRAUMATIC, NORMAL INSPECTION, NORMOCEPHALIC - Eye Exam Eye Exam: EOMI, Normal appearance, PERRL - ENT Exam ENT Exam: Mucous Membranes Moist, Normal Exam - Neck Exam Neck Exam: Full ROM, Normal Inspection. absent: Lymphadenopathy - Respiratory Exam Respiratory Exam: Decreased Breath Sounds - Cardiovascular Exam Cardiovascular Exam: REGULAR RHYTHM, +S1, +S2 - GI/Abdominal Exam GI & Abdominal Exam: Soft, Diminished Bowel Sounds - Rectal Exam Rectal Exam: Deferred
--- NOTE | 2016-12-05 11:20 | CP.PCM.PN ---
Subjective - Date & Time of Evaluation Date of Evaluation: 12/05/16 Time of Evaluation: 11:18 - Subjective Subjective: pt is seen and examined by me, follow up consult is dictated #[id number] Objective - Vital Signs/Intake and Output Vital Signs (last 24 hours): Temp Pulse Resp BP Pulse Ox 97 F L 85 20 145/77 97 12/05/16 08:43 12/05/16 08:43 12/05/16 08:43 12/05/16 08:43 12/05/16 08:43 - Medications Medications: Current Medications Acetaminophen (Tylenol 650mg/20.3ml Solution Ud) 650 mg NG Q6 PRN PRN Reason: Fever >100.4 F Last Admin: 12/02/16 20:15 Dose: 650 mg Albuterol/Ipratropium (Duoneb 3 Mg/0.5 Mg (3 Ml) Ud) 3 ml IH RQ6 [facility] Last Admin: 12/05/16 08:02 Dose: 3 ml Amlodipine Besylate (Norvasc) 10 mg PO DAILY [facility] Last Admin: 12/05/16 09:48 Dose: 10 mg Ascorbic Acid (Vitamin C 500 Mg Tab) 500 mg PO BID [facility] Last Admin: 12/05/16 09:48 Dose: 500 mg Clonidine HCl (Catapres Tts1 0.1 Mg/24 Hr) 1 patch TD QWK [facility] Epoetin Chuck (Procrit) 10,000 unit IV MWF [facility] Last Admin: 12/03/16 11:35 Dose: 10,000 unit Famotidine (Pepcid) 20 mg PO DAILY [facility] Last Admin: 12/05/16 09:47 Dose: 20 mg Fosamprenavir Calcium (Lexiva) 700 mg PO BID [facility] Last Admin: 12/05/16 09:48 Dose: 700 mg Piperacillin Sod/Tazobactam Sod (Zosyn 2.25 Gm Iv Premix) 2.25 gm in 50 mls @ 100 mls/hr IVPB Q6 [facility] Last Admin: 12/05/16 05:28 Dose: 100 mls/hr Levetiracetam (Keppra) 500 mg PO Q12H [facility] Last Admin: 12/05/16 09:51 Dose: 500 mg Oxycodone/Acetaminophen (Percocet 5/325 Mg Tab) 1 tab PO Q6H PRN PRN Reason: Pain, moderate (4-7) Stop: 12/06/16 17:18 Last Admin: 12/05/16 09:51 Dose: 1 tab Paricalcitol (Zemplar) 2 mcg IV MWF [facility] Last Admin: 12/03/16 11:36 Dose: 2 mcg Raltegravir (Isentress) 400 mg PO BID [facility] Last Admin: 12/05/16 09:48 Dose: 400 mg Ritonavir (Norvir) 100 mg PO DAILY [facility] Last Admin: 12/05/16 09:48 Dose: 100 mg Zinc Sulfate (Zinc Sulfate 220 Mg Cap) 220 mg PO DAILY [facility] Last Admin: 12/05/16 09:48 Dose: 220 mg - Labs Labs: 12/05/16 08:20 12/05/16 08:20 PT 11.5 SECONDS (9.7-12.2) 12/02/16 17:10 INR 1.0 12/02/16 17:10 APTT 24 SECONDS (21-34) 12/02/16 17:10
--- NOTE | 2016-12-05 14:30 | CP.PCM.PN ---
Subjective - Date & Time of Evaluation Date of Evaluation: 12/05/16 Time of Evaluation: 09:00 - Subjective Subjective: 71 yo male with severe cachexia and rectal bleeding as well as infected bed sores from [place] [facility] on board no new cultures await surgical eval for debridement Objective - Vital Signs/Intake and Output Vital Signs (last 24 hours): Temp Pulse Resp BP Pulse Ox 97 F L 85 20 145/77 97 12/05/16 08:43 12/05/16 08:43 12/05/16 08:43 12/05/16 08:43 12/05/16 08:43 - Medications Medications: Current Medications Acetaminophen (Tylenol 650mg/20.3ml Solution Ud) 650 mg NG Q6 PRN PRN Reason: Fever >100.4 F Last Admin: 12/02/16 20:15 Dose: 650 mg Albuterol/Ipratropium (Duoneb 3 Mg/0.5 Mg (3 Ml) Ud) 3 ml IH RQ6 [facility] Last Admin: 12/05/16 13:56 Dose: 3 ml Amlodipine Besylate (Norvasc) 10 mg PO DAILY [facility] Last Admin: 12/05/16 09:48 Dose: 10 mg Ascorbic Acid (Vitamin C 500 Mg Tab) 500 mg PO BID [facility] Last Admin: 12/05/16 09:48 Dose: 500 mg Clonidine HCl (Catapres Tts1 0.1 Mg/24 Hr) 1 patch TD QWK [facility] Epoetin Chuck (Procrit) 10,000 unit IV MWF [facility] Last Admin: 12/03/16 11:35 Dose: 10,000 unit Famotidine (Pepcid) 20 mg PO DAILY [facility] Last Admin: 12/05/16 09:47 Dose: 20 mg Fosamprenavir Calcium (Lexiva) 700 mg PO BID [facility] Last Admin: 12/05/16 09:48 Dose: 700 mg Piperacillin Sod/Tazobactam Sod (Zosyn 2.25 Gm Iv Premix) 2.25 gm in 50 mls @ 100 mls/hr IVPB Q6 [facility] Last Admin: 12/05/16 13:55 Dose: 100 mls/hr Levetiracetam (Keppra) 500 mg PO Q12H [facility] Last Admin: 12/05/16 09:51 Dose: 500 mg Oxycodone/Acetaminophen (Percocet 5/325 Mg Tab) 1 tab PO Q6H PRN PRN Reason: Pain, moderate (4-7) Stop: 12/06/16 17:18 Last Admin: 12/05/16 09:51 Dose: 1 tab Paricalcitol (Zemplar) 2 mcg IV MWF [facility] Last Admin: 12/03/16 11:36 Dose: 2 mcg Raltegravir (Isentress) 400 mg PO BID [facility] Last Admin: 12/05/16 09:48 Dose: 400 mg Ritonavir (Norvir) 100 mg PO DAILY [facility] Last Admin: 12/05/16 09:48 Dose: 100 mg Zinc Sulfate (Zinc Sulfate 220 Mg Cap) 220 mg PO DAILY [facility] Last Admin: 12/05/16 09:48 Dose: 220 mg - Labs Labs: 12/05/16 08:20 12/05/16 08:20 PT 11.5 SECONDS (9.7-12.2) 12/02/16 17:10 INR 1.0 12/02/16 17:10 APTT 24 SECONDS (21-34) 12/02/16 17:10 - Constitutional Appears: Non-toxic, Cachectic, Chronically Ill - Head Exam Head Exam: NORMOCEPHALIC - Eye Exam Eye Exam: PERRL. absent: Scleral icterus - ENT Exam ENT Exam: Mucous Membranes Dry, Normal External Ear Exam - Neck Exam Neck Exam: absent: Lymphadenopathy - Respiratory Exam Respiratory Exam: Decreased Breath Sounds, Rhonchi - Cardiovascular Exam Cardiovascular Exam: REGULAR RHYTHM - GI/Abdominal Exam GI & Abdominal Exam: Distended, Soft - Rectal Exam Rectal Exam: Deferred - Exam Exam: NORMAL INSPECTION - Extremities Exam Extremities Exam: absent: Calf Tenderness, Tenderness - Back Exam Back Exam: absent: CVA tenderness (L), CVA tenderness (R) - Neurological Exam Neurological Exam: Alert, Awake, CN II-XII Intact Neuro motor strength exam: Left Upper Extremity: 2/1, Right Upper Extremity: 2/1 , Left Lower Extremity: 0, Right Lower Extremity: 0 - Psychiatric Exam Psychiatric exam: Depressed - Skin Skin Exam: Dry Assessment and Plan (1) Rectal bleeding Status: Acute (2) Anemia Status: Acute (3) CHF (congestive heart failure) Status: Acute (4) Decubitus skin ulcer Status: Acute (5) ESRD (end stage renal disease) Status: Acute (6) End stage renal disease on dialysis Status: Acute - Assessment and Plan (Free Text) Assessment: cont iv antibiotics and wound care awaitcultures gi eval in progress
--- NOTE | 2016-12-05 16:23 | CON ---
FOLLOWUP RENAL CONSULTATION LOCATION: The patient is located in room 567. REQUESTED BY: Chayito Mckeon MD REASON FOR FOLLOWUP: End-stage renal disease, continuation of the hemodialysis. HISTORY OF PRESENT ILLNESS: Mr. Fontenot is a 71-year-old elderly -[place] male with history of longstanding hypertension, chronic hepatitis C, end-stage renal disease, polycystic kidney disease, prostate CA status post radiation treatment, status post fall with tricompartmental bleed, status post Trach and PEG, resident of care home more then one year with multiple sacral decubitus, was admitted with rectal bleed and also patient is very cachectic and patient is feeling slightly better today not in acute distress, restarted on the PEG feeding. Denies any chest pain, palpation, no fever, no cough. PHYSICAL EXAMINATION: VITAL SIGNS: As follows: Blood pressure 145/77, pulse 85, respirations 20, temperature 97, and saturation 97%. Height 6 feet 2 inches and weight is 144 pounds. GENERAL: Mr. Fontenot is a 71 years old elderly, very cachectic male, not in distress. HEENT: Pupils normal, reactive to light and accommodation. Conjunctivae pink. Sclerae anicteric. Tongue is moist. Trachea is midline. LUNGS: Symmetry on both sides. Bilateral breath sounds present. Clear to auscultation. CARDIOVASCULAR SYSTEM: [place] at the fifth intercostal space, midclavicular line. S1 and S2 audible. No murmur or gallop. ABDOMEN: Patient has a PEG tube present. Abdomen is soft, and tympanic. No guarding. No hepatosplenomegaly. CENTRAL NERVOUS SYSTEM: The patient is alert, awake and oriented x2 to 3. Sensory and motor system is grossly within normal limits. EXTREMITIES: No cyanosis. No clubbing. No edema. The patient has atrophy of the muscles in both lower extremities. CURRENT MEDICATIONS: Include as follows: Catapres TTS one patch daily, DuoNeb inhaler 3 mL q. 6 hours, raltegravir 400 mg p.o. b.i.d., Keppra 500 mg q. 12 hours, Lexiva 700 mg p.o. b.i.d., Norvasc 10 mg daily, Norvir 100 mg daily, Pepcid 20 mg daily, Percocet one tablet q. 6 hours p.r.n., Procrit 10,000 three times a week Tuesday, Tuesday, and Tuesday, Tylenol 650 mg q. 6 hours p.r.n., vitamin C 500 mg p.o. b.i.d, Zemplar 2 mcg three times a week Tuesday, Tuesday, and Tuesday, zinc sulfate 220 mg p.o. daily, and Zosyn 2.25 g IV q. 6 hours. LABORATORY DATA: Include as follows: As of 12/05/2016, WBC 4.3, hemoglobin 9.2, hematocrit 27.8, and platelet 244. Sodium 137, potassium 3.8, chloride 96, CO2 of 30, BUN 29, creatinine 3.2, glucose 129, total protein 5.7, albumin is 2.1. Stool for occult blood was positive as of 12/03/2016 and no cultures are available. Chest x-ray as of 12/02/2016, small left plural effusion and/or consultation, patching lingular infiltrate. Mediastinal prominence and right paratracheal opacity possibly tortuous vasculature if indicated CT with contrast may be considered for evaluation. Heart size appears borderline, enlarged. Duplex of the upper extremities as of 12/02/2016. IMPRESSION: Right, no evidence of vein thrombosis of the right upper extremity with excellent venous flow, normal wall function noted on the right side. 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 PLAN: In summary, Mr. Fontenot is a 71 years old elderly -[place] male with a history of longstanding hypertension, chronic hepatitis C, polycystic kidney disease, end-stage renal disease, resident of care home for more then one year ago who was admitted with rectal bleed and also history of internal hemorrhoids and multiple sacral decubitus ulcers. 1. End-stage renal disease. Continue hemodialysis 3 times a week, Tuesday, Tuesday, and Tuesday. 2. Anemia secondary to multifactorial renal failure and decreases p.o. intake and malnutrition. Cannot rule out iron deficiency anemia. We will check current TIBC, ferritin with analysis. 3. Multiple sacral decubitus. Followup with computer forensic specialist and continue wound care. 4. Hypoalbuminemia secondary to malnutrition. Continue Nepro and also consider to add Pro-Stat 30 mL p.o. by PEG tube. We will follow with you. Thank you for allowing me to participate in your patient's care and also free water by PEG tube 200 mL q. 6 hours. Raul Geller MD
[2016-12-06] MEDS: Piperacill/Tazo 2.25gm in Dex 2.25 GM/50 ML BAG IVPB SCH ×4 (00:21→19:40)
[2016-12-06] MEDS: Albuterol-Ipratrop 3 mg / 0.5 (3 ml) UD IH SCH ×4 (01:28→20:19)
--- NOTE | 2016-12-06 10:30 | PCM.SURG1 ---
Surgeon's Initial Post Op Note - Surgeon's Notes Surgeon: Cuba Adams Marketing Content Manager: Bandar Baker Type of Anesthesia: None Pre-Operative Diagnosis: PEG malfunction Operative Findings: PEG malfunction Post-Operative Diagnosis: PEG malfunction Operation Performed: Bedside PEG change. PEG pulled. New 20 Fr Replacement PEG inserted. Balloon instilled with 6 cc of saline and pulled back until taught. Bumper tightened until snug. outer falange at 2.5 cm. Specimen/Specimens Removed: Old PEG Estimated Blood Loss: EBL {In ML}: 0 Blood Products Given: N/A Post-Op Condition: Good Date of Surgery/Procedure: 12/06/16 Time of Surgery/Procedure: 09:30
--- NOTE | 2016-12-06 10:31 | CP.PCM.PN ---
Subjective - Date & Time of Evaluation Date of Evaluation: 12/06/16 Time of Evaluation: 08:20 - Subjective Subjective: PGY5 GI Fellow Progress Note Patient seen and examined bedside this morning. The patient states that he is feeling well and has no new complaints. Explained need for PEG exchange at bedside and patient understands procedure and benefits to removal/replacement. No events overnight. 12 system ROS performed and negative except where stated. Objective - Vital Signs/Intake and Output Vital Signs (last 24 hours): Temp Pulse Resp BP Pulse Ox 97.3 F L 74 19 160/82 H 96 12/06/16 08:41 12/06/16 08:41 12/06/16 08:41 12/06/16 08:41 12/06/16 08:41 Intake and Output: 12/06/16 12/06/16 06:59 18:59 Intake Total 80 Balance 80 - Medications Medications: Current Medications Acetaminophen (Tylenol 650mg/20.3ml Solution Ud) 650 mg NG Q6 PRN PRN Reason: Fever >100.4 F Last Admin: 12/02/16 20:15 Dose: 650 mg Albuterol/Ipratropium (Duoneb 3 Mg/0.5 Mg (3 Ml) Ud) 3 ml IH RQ6 [facility] Last Admin: 12/06/16 07:40 Dose: 3 ml Amlodipine Besylate (Norvasc) 10 mg PO DAILY [facility] Last Admin: 12/05/16 09:48 Dose: 10 mg Ascorbic Acid (Vitamin C 500 Mg Tab) 500 mg PO BID [facility] Last Admin: 12/05/16 18:54 Dose: 500 mg Clonidine HCl (Catapres Tts1 0.1 Mg/24 Hr) 1 patch TD QWK [facility] Epoetin Chuck (Procrit) 10,000 unit IV MWF [facility] Last Admin: 12/03/16 11:35 Dose: 10,000 unit Famotidine (Pepcid) 20 mg PO DAILY [facility] Last Admin: 12/05/16 09:47 Dose: 20 mg Fosamprenavir Calcium (Lexiva) 700 mg PO BID [facility] Last Admin: 12/05/16 18:55 Dose: 700 mg Piperacillin Sod/Tazobactam Sod (Zosyn 2.25 Gm Iv Premix) 2.25 gm in 50 mls @ 100 mls/hr IVPB Q6 [facility] Last Admin: 12/06/16 05:00 Dose: 100 mls/hr Levetiracetam (Keppra) 500 mg PO Q12H [facility] Last Admin: 12/05/16 19:07 Dose: Not Given Oxycodone/Acetaminophen (Percocet 5/325 Mg Tab) 1 tab PO Q6H PRN PRN Reason: Pain, moderate (4-7) Stop: 12/06/16 17:18 Last Admin: 12/05/16 09:51 Dose: 1 tab Paricalcitol (Zemplar) 2 mcg IV MWF [facility] Last Admin: 12/03/16 11:36 Dose: 2 mcg Raltegravir (Isentress) 400 mg PO BID [facility] Last Admin: 12/05/16 18:54 Dose: 400 mg Ritonavir (Norvir) 100 mg PO DAILY [facility] Last Admin: 12/05/16 09:48 Dose: 100 mg Zinc Sulfate (Zinc Sulfate 220 Mg Cap) 220 mg PO DAILY [facility] Last Admin: 12/05/16 09:48 Dose: 220 mg - Labs Labs: 12/05/16 08:20 12/05/16 08:20 PT 11.5 SECONDS (9.7-12.2) 12/02/16 17:10 INR 1.0 12/02/16 17:10 APTT 24 SECONDS (21-34) 12/02/16 17:10 - Constitutional Appears: Non-toxic, No Acute Distress - Eye Exam Eye Exam: EOMI, PERRL - ENT Exam ENT Exam: Mucous Membranes Moist - Respiratory Exam Respiratory Exam: Clear to Ausculation Bilateral. absent: Rales, Rhonchi, Wheezes - Cardiovascular Exam Cardiovascular Exam: RRR, +S1, +S2 - GI/Abdominal Exam GI & Abdominal Exam: Soft, Normal Bowel Sounds. absent: Distended, Firm, Guarding, Rigid, Tenderness, Organomegaly - Extremities Exam Extremities Exam: Pedal Edema Additional comments: LE/UE edema noted; quadraplegia - Neurological Exam Neurological Exam: Alert, Awake, Oriented x3 - Psychiatric Exam Psychiatric exam: Normal Affect, Normal Mood - Skin Skin Exam: Dry, Warm Assessment and Plan - Assessment and Plan (Free Text) Assessment: Patient is a 71yo male with PMHx significant for quadraplegia following fall, subdural hematoma, ESRD on HD MWF, HIV on HAART, HCV (tx naive), prostate cancer s/p XRT and brachytherapy who presented with anemia. Our service was re- consulted for PEG tube malfunction. -PEG tube malfunction Plan: -PEG tube removed/replaced at bedside with [employer] EndoVive 20F replacement kit - bumper at 2.5cm -OK to use PEG for medications/tube feeds as ordered -Pleasure feeding as tolerated -Previously counselled on endoscopic evaluation but currently refusing colonoscopy -Will sign off. Thank you for allowing us to participate in the care of your patient.
--- NOTE | 2016-12-06 10:51 | CP.PCM.PN ---
Subjective - Date & Time of Evaluation Date of Evaluation: 12/06/16 Time of Evaluation: 08:00 - Subjective Subjective: s/p peg replacement seen by nephro iv rx in progress Objective - Vital Signs/Intake and Output Vital Signs (last 24 hours): Temp Pulse Resp BP Pulse Ox 97.3 F L 74 19 160/82 H 96 12/06/16 08:41 12/06/16 08:41 12/06/16 08:41 12/06/16 08:41 12/06/16 08:41 Intake and Output: 12/06/16 12/06/16 06:59 18:59 Intake Total 80 Balance 80 - Medications Medications: Current Medications Acetaminophen (Tylenol 650mg/20.3ml Solution Ud) 650 mg NG Q6 PRN PRN Reason: Fever >100.4 F Last Admin: 12/02/16 20:15 Dose: 650 mg Albuterol/Ipratropium (Duoneb 3 Mg/0.5 Mg (3 Ml) Ud) 3 ml IH RQ6 [facility] Last Admin: 12/06/16 07:40 Dose: 3 ml Amlodipine Besylate (Norvasc) 10 mg PO DAILY [facility] Last Admin: 12/05/16 09:48 Dose: 10 mg Ascorbic Acid (Vitamin C 500 Mg Tab) 500 mg PO BID [facility] Last Admin: 12/05/16 18:54 Dose: 500 mg Clonidine HCl (Catapres Tts1 0.1 Mg/24 Hr) 1 patch TD QWK [facility] Epoetin Chuck (Procrit) 10,000 unit IV MWF [facility] Last Admin: 12/03/16 11:35 Dose: 10,000 unit Famotidine (Pepcid) 20 mg PO DAILY [facility] Last Admin: 12/05/16 09:47 Dose: 20 mg Fosamprenavir Calcium (Lexiva) 700 mg PO BID [facility] Last Admin: 12/05/16 18:55 Dose: 700 mg Piperacillin Sod/Tazobactam Sod (Zosyn 2.25 Gm Iv Premix) 2.25 gm in 50 mls @ 100 mls/hr IVPB Q6 [facility] Last Admin: 12/06/16 05:00 Dose: 100 mls/hr Levetiracetam (Keppra) 500 mg PO Q12H [facility] Last Admin: 12/05/16 19:07 Dose: Not Given Oxycodone/Acetaminophen (Percocet 5/325 Mg Tab) 1 tab PO Q6H PRN PRN Reason: Pain, moderate (4-7) Stop: 12/06/16 17:18 Last Admin: 12/05/16 09:51 Dose: 1 tab Paricalcitol (Zemplar) 2 mcg IV MWF [facility] Last Admin: 12/03/16 11:36 Dose: 2 mcg Raltegravir (Isentress) 400 mg PO BID [facility] Last Admin: 12/05/16 18:54 Dose: 400 mg Ritonavir (Norvir) 100 mg PO DAILY [facility] Last Admin: 12/05/16 09:48 Dose: 100 mg Zinc Sulfate (Zinc Sulfate 220 Mg Cap) 220 mg PO DAILY [facility] Last Admin: 12/05/16 09:48 Dose: 220 mg - Labs Labs: 12/05/16 08:20 12/05/16 08:20 PT 11.5 SECONDS (9.7-12.2) 12/02/16 17:10 INR 1.0 12/02/16 17:10 APTT 24 SECONDS (21-34) 12/02/16 17:10 - Constitutional Appears: Non-toxic, Cachectic, Chronically Ill - Head Exam Head Exam: NORMOCEPHALIC - Eye Exam Eye Exam: PERRL - ENT Exam ENT Exam: Mucous Membranes Dry - Neck Exam Neck Exam: absent: Lymphadenopathy - Respiratory Exam Respiratory Exam: Decreased Breath Sounds - Cardiovascular Exam Cardiovascular Exam: REGULAR RHYTHM - GI/Abdominal Exam GI & Abdominal Exam: Distended Assessment and Plan (1) Rectal bleeding Status: Acute (2) Anemia Status: Acute (3) CHF (congestive heart failure) Status: Acute (4) Decubitus skin ulcer Status: Acute (5) ESRD (end stage renal disease) Status: Acute (6) End stage renal disease on dialysis Status: Acute
[2016-12-06 11:16] LABS: BASO # 0.1 K/uL (0.0-0.2); BASO % 1.4 % (0.0-2.0); EOS # 0.1 K/uL (0.0-0.7); EOS % 3.4 % (0.0-4.0); HEMATOCRIT 27.6 % (35.0-51.0); LYMPH # 1.9 K/uL (1.0-4.3); LYMPH % 46.9 % (20.0-40.0); MEAN CELL VOLUME 91.7 fL (80.0-94.0); MEAN CORPUSCULAR HEMOGLOBIN 30.3 pg (27.0-31.0); MEAN PLATELET VOLUME 7.5 fL (7.2-11.7); MONO # 0.4 K/uL (0.0-0.8); MONO % 10.4 % (0.0-10.0); RED CELL DISTRIBUTION WIDTH 18.2 % (11.5-14.5); WHITE BLOOD COUNT 4.1 K/uL (4.8-10.8)
[2016-12-06 11:36] LABS: CHLORIDE 96 mmol/L (98-107); SODIUM 134 mmol/L (132-148)
[2016-12-06 11:39] LABS: ALB/GLOB RATIO 0.6 (1.0-2.1); ALKALINE PHOSPHATASE 100 U/L (38-126); ALT/SGPT 23 U/L (21-72); AST/SGOT 26 U/L (17-59); BILIRUBIN,TOTAL 0.6 mg/dL (0.2-1.3); BLOOD UREA NITROGEN 33 mg/dL (9-20); CALCIUM 9.7 mg/dl (8.6-10.4); CARBON DIOXIDE 30 mmol/L (22-30); GFR AFRICAN-AMERICAN 19; GLUCOSE,RANDOM 63 mg/dL (75-110); TOTAL PROTEIN 5.7 g/dL (6.3-8.3)
[2016-12-06 11:54] LABS: CARCINOEMBRYONIC ANTIGEN 3.5 ng/mL (0-3.0)
[2016-12-06 11:55] LABS: PROSTATE SPECIFIC ANTIGEN < 0.064 ng/mL (0.00-4.0)
--- NOTE | 2016-12-06 11:57 | CP.PCM.PN ---
Subjective - Date & Time of Evaluation Date of Evaluation: 12/06/16 Time of Evaluation: 11:54 - Subjective Subjective: s/p PEG- tolerating feedings well For dialysis today No CPs, mod SOB lytes acceptable BP controlled on ESAs for anemia Objective - Vital Signs/Intake and Output Vital Signs (last 24 hours): Temp Pulse Resp BP Pulse Ox 97.3 F L 74 19 160/82 H 96 12/06/16 08:41 12/06/16 08:41 12/06/16 08:41 12/06/16 08:41 12/06/16 08:41 Intake and Output: 12/06/16 12/06/16 06:59 18:59 Intake Total 80 Balance 80 - Medications Medications: Current Medications Acetaminophen (Tylenol 650mg/20.3ml Solution Ud) 650 mg NG Q6 PRN PRN Reason: Fever >100.4 F Last Admin: 12/02/16 20:15 Dose: 650 mg Albuterol/Ipratropium (Duoneb 3 Mg/0.5 Mg (3 Ml) Ud) 3 ml IH RQ6 [facility] Last Admin: 12/06/16 07:40 Dose: 3 ml Amlodipine Besylate (Norvasc) 10 mg PO DAILY [facility] Last Admin: 12/05/16 09:48 Dose: 10 mg Ascorbic Acid (Vitamin C 500 Mg Tab) 500 mg PO BID [facility] Last Admin: 12/06/16 10:44 Dose: 500 mg Clonidine HCl (Catapres Tts1 0.1 Mg/24 Hr) 1 patch TD QWK [facility] Epoetin Chuck (Procrit) 10,000 unit IV MWF [facility] Last Admin: 12/03/16 11:35 Dose: 10,000 unit Famotidine (Pepcid) 20 mg PO DAILY [facility] Last Admin: 12/06/16 10:44 Dose: 20 mg Fosamprenavir Calcium (Lexiva) 700 mg PO BID [facility] Last Admin: 12/06/16 10:44 Dose: 700 mg Piperacillin Sod/Tazobactam Sod (Zosyn 2.25 Gm Iv Premix) 2.25 gm in 50 mls @ 100 mls/hr IVPB Q6 [facility] Last Admin: 12/06/16 05:00 Dose: 100 mls/hr Levetiracetam (Keppra) 500 mg PO Q12H [facility] Last Admin: 12/06/16 08:42 Dose: 500 mg Oxycodone/Acetaminophen (Percocet 5/325 Mg Tab) 1 tab PO Q6H PRN PRN Reason: Pain, moderate (4-7) Stop: 12/06/16 17:18 Last Admin: 12/05/16 09:51 Dose: 1 tab Paricalcitol (Zemplar) 2 mcg IV MWF [facility] Last Admin: 12/03/16 11:36 Dose: 2 mcg Raltegravir (Isentress) 400 mg PO BID [facility] Last Admin: 12/06/16 10:44 Dose: 400 mg Ritonavir (Norvir) 100 mg PO DAILY [facility] Last Admin: 12/06/16 10:44 Dose: 100 mg Zinc Sulfate (Zinc Sulfate 220 Mg Cap) 220 mg PO DAILY [facility] Last Admin: 12/06/16 10:44 Dose: 220 mg - Labs Labs: 12/06/16 11:06 12/06/16 11:06 PT 11.5 SECONDS (9.7-12.2) 12/02/16 17:10 INR 1.0 12/02/16 17:10 APTT 24 SECONDS (21-34) 12/02/16 17:10 - Constitutional Appears: Non-toxic, No Acute Distress - Head Exam Head Exam: ATRAUMATIC, NORMAL INSPECTION - Eye Exam Eye Exam: EOMI, Normal appearance - Neck Exam Neck Exam: Normal Inspection. absent: Tenderness - Respiratory Exam Respiratory Exam: Clear to Ausculation Bilateral, NORMAL BREATHING PATTERN - Cardiovascular Exam Cardiovascular Exam: REGULAR RHYTHM, +S1 - GI/Abdominal Exam GI & Abdominal Exam: Soft. absent: Tenderness - Extremities Exam Extremities Exam: absent: Pedal Edema, Tenderness - Neurological Exam Neurological Exam: Alert, CN II-XII Intact - Skin Skin Exam: Dry, Warm Assessment and Plan (1) Rectal bleeding Status: Acute (2) End stage renal disease on dialysis Status: Acute (3) HTN (hypertension) Status: Acute (4) Hepatitis C antibody test positive Status: Acute - Assessment and Plan (Free Text) Plan: Dialysis now and MWF ESAs Check iron stores IV ABs as per ID PEG feeds
--- NOTE | 2016-12-06 12:08 | CP.PCM.CON ---
<Estuardo Flores - Last Filed: 12/06/16 12:04> History of Present Illness - History of Present Illness History of Present Illness: 71M with PMHx of CKD with HD, CHF, HTN, prostate CA with seeds implant, HIV, Hep C and quadraparesis s/p fall with chronic subdural hematoma admitted for rectal bleed multiple bed sores from [facility]. General Surgery was consulted for bed sores x2. Patient has a Stage II sacral decubitus ulcer as well as a left stage II greater trochanteric ulcer. There is no active drainage from either ulcer. Patient denies f/c, chest pain/SOB. PMHx: CKD with HD, CHF, HTN, prostate CA with seeds implant, HIV, Hep C PSHx: AV fistula Review of Systems - Review of Systems Review of Systems: 12 pt ROS reviewed, unremarkable, except as stated in HPI Past Patient History - Tetanus Immunizations Tetanus Immunization: Unknown - Past Medical History & Family History Past Medical History?: Yes - Past Social History Smoking Status: Former Smoker - CARDIAC Hx Congestive Heart Failure: Yes Hx Hypertension: Yes - PULMONARY Hx Respiratory Disorders: No Other/Comment: tracheostomy - NEUROLOGICAL Hx Neurological Disorder: No - HEENT Hx HEENT Problems: No - RENAL Hx Chronic Kidney Disease: Yes - ENDOCRINE/METABOLIC Hx Endocrine Disorders: No - HEMATOLOGICAL/ONCOLOGICAL Hx Human Immunodeficiency Virus (HIV): Yes - INTEGUMENTARY Hx Dermatological Problems: No Other/Comment: multiple skin ulcers, bilat back, sacro-coccyx, healing sores both lower exts and buttocks sacral stage 4 ulcer [id number],. left hip unstageable,,stage 3 bilat back,right side 6cm x 2 cm. right mid back skin ulcer stage 2, 6cm x 3 cm,, multiple hip areas in healing stage dsd on back and sacral ulcers, - MUSCULOSKELETAL/RHEUMATOLOGICAL Hx Falls: No - GASTROINTESTINAL Hx Gastrointestinal Disorders: Yes Hx Gastroesophageal Reflux: Yes Hx Hemorrhoids: Yes Other/Comment: PEG tube in place - GENITOURINARY/GYNECOLOGICAL Hx Genitourinary Disorders: Yes Hx Prostate Cancer: Yes (2010 HAD RADIATION WITH SEED IMPLANT; NO SURGERY) Other/Comment: ESRD ON HD pt is anuric - PSYCHIATRIC Hx Substance Use: No - ANESTHESIA Hx Anesthesia: Yes Hx Anesthesia Reactions: No Hx Malignant Hyperthermia: No Meds Allergies/Adverse Reactions: Allergies Allergy/AdvReac Type Severity Reaction Status Date / Time No Known Allergies Allergy Verified 12/02/16 16:50 - Medications Medications: Current Medications Acetaminophen (Tylenol 650mg/20.3ml Solution Ud) 650 mg NG Q6 PRN PRN Reason: Fever >100.4 F Last Admin: 12/02/16 20:15 Dose: 650 mg Albuterol/Ipratropium (Duoneb 3 Mg/0.5 Mg (3 Ml) Ud) 3 ml IH RQ6 [facility] Last Admin: 12/06/16 07:40 Dose: 3 ml Amlodipine Besylate (Norvasc) 10 mg PO DAILY [facility] Last Admin: 12/05/16 09:48 Dose: 10 mg Ascorbic Acid (Vitamin C 500 Mg Tab) 500 mg PO BID [facility] Last Admin: 12/06/16 10:44 Dose: 500 mg Clonidine HCl (Catapres Tts1 0.1 Mg/24 Hr) 1 patch TD QWK [facility] Epoetin Chuck (Procrit) 10,000 unit IV MWF [facility] Last Admin: 12/03/16 11:35 Dose: 10,000 unit Famotidine (Pepcid) 20 mg PO DAILY [facility] Last Admin: 12/06/16 10:44 Dose: 20 mg Fosamprenavir Calcium (Lexiva) 700 mg PO BID [facility] Last Admin: 12/06/16 10:44 Dose: 700 mg Piperacillin Sod/Tazobactam Sod (Zosyn 2.25 Gm Iv Premix) 2.25 gm in 50 mls @ 100 mls/hr IVPB Q6 [facility] Last Admin: 12/06/16 11:58 Dose: 100 mls/hr Levetiracetam (Keppra) 500 mg PO Q12H [facility] Last Admin: 12/06/16 08:42 Dose: 500 mg Oxycodone/Acetaminophen (Percocet 5/325 Mg Tab) 1 tab PO Q6H PRN PRN Reason: Pain, moderate (4-7) Stop: 12/06/16 17:18 Last Admin: 12/05/16 09:51 Dose: 1 tab Paricalcitol (Zemplar) 2 mcg IV MWF [facility] Last Admin: 12/03/16 11:36 Dose: 2 mcg Raltegravir (Isentress) 400 mg PO BID [facility] Last Admin: 12/06/16 10:44 Dose: 400 mg Ritonavir (Norvir) 100 mg PO DAILY [facility] Last Admin: 12/06/16 10:44 Dose: 100 mg Zinc Sulfate (Zinc Sulfate 220 Mg Cap) 220 mg PO DAILY [facility] Last Admin: 12/06/16 10:44 Dose: 220 mg Physical Exam - Constitutional Appears: No Acute Distress - Head Exam Head Exam: NORMOCEPHALIC - Eye Exam Eye Exam: Normal appearance - ENT Exam ENT Exam: Mucous Membranes Moist - Respiratory Exam Respiratory Exam: NORMAL BREATHING PATTERN - Cardiovascular Exam Cardiovascular Exam: +S1, +S2 - GI/Abdominal Exam GI & Abdominal Exam: Soft - Neurological Exam Neurological exam: Alert, Oriented x3 - Psychiatric Exam Psychiatric exam: Normal Mood - Skin Skin Exam: Normal Color, Warm Additional comments: sacral decubitus ulcer stage II left greater trochanteric ulcer stage II Results - Vital Signs Recent Vital Signs: Last Vital Signs Temp 97.3 F L 12/06/16 08:41 Pulse 74 12/06/16 08:41 Resp 19 12/06/16 08:41 BP 160/82 H 12/06/16 08:41 Pulse Ox 96 12/06/16 08:41 - Labs Result Diagrams: 12/06/16 11:06 12/06/16 11:06 Labs: Laboratory Results - last 24 hr 12/06/16 12/06/16 11:06 11:06 WBC 4.1 L RBC 3.01 L Hgb 9.1 L Hct 27.6 L MCV 91.7 MCH 30.3 MCHC 33.0 RDW 18.2 H Plt Count 266 MPV 7.5 Neut % (Auto) 37.9 L Lymph % (Auto) 46.9 H [place] % (Auto) 10.4 H Eos % (Auto) 3.4 Baso % (Auto) 1.4 Neut # 1.6 L Lymph # 1.9 [place] # 0.4 Eos # 0.1 Baso # 0.1 Sodium 134 Potassium 4.0 Chloride 96 L Carbon Dioxide 30 Anion Gap 12 BUN 33 H Creatinine 3.9 H Est GFR ( Amer) 19 Est GFR (Non-Af Amer) 15 Random Glucose 63 L Calcium 9.7 Ferritin 821.0 Total Bilirubin 0.6 AST 26 ALT 23 Alkaline Phosphatase 100 Total Protein 5.7 L Albumin 2.2 L Globulin 3.5 Albumin/Globulin Ratio 0.6 L Carcinoembryonic Ag 3.5 H Prostate Specific Ag < 0.064 Assessment & Plan - Assessment and Plan (Free Text) Assessment: 71M w/ stage II sacral decubitus ulcer & stage II left greater trochanteric ulcer -Continue local wound care -Turn patient every Q2H -No acute surgical intervention necessary at this present time -Further recs per Dr. Vianney Flores PGY-2 <Francisco Faith - Last Filed: 12/06/16 13:03> Meds - Medications Medications: Current Medications Acetaminophen (Tylenol 650mg/20.3ml Solution Ud) 650 mg NG Q6 PRN PRN Reason: Fever >100.4 F Last Admin: 12/02/16 20:15 Dose: 650 mg Albuterol/Ipratropium (Duoneb 3 Mg/0.5 Mg (3 Ml) Ud) 3 ml IH RQ6 [facility] Last Admin: 12/06/16 07:40 Dose: 3 ml Amlodipine Besylate (Norvasc) 10 mg PO DAILY [facility] Last Admin: 12/06/16 10:44 Dose: Not Given Ascorbic Acid (Vitamin C 500 Mg Tab) 500 mg PO BID [facility] Last Admin: 12/06/16 10:44 Dose: 500 mg Clonidine HCl (Catapres Tts1 0.1 Mg/24 Hr) 1 patch TD QWK [facility] Epoetin Chuck (Procrit) 10,000 unit IV MWF [facility] Last Admin: 12/03/16 11:35 Dose: 10,000 unit Famotidine (Pepcid) 20 mg PO DAILY [facility] Last Admin: 12/06/16 10:44 Dose: 20 mg Fosamprenavir Calcium (Lexiva) 700 mg PO BID [facility] Last Admin: 12/06/16 10:44 Dose: 700 mg Piperacillin Sod/Tazobactam Sod (Zosyn 2.25 Gm Iv Premix) 2.25 gm in 50 mls @ 100 mls/hr IVPB Q6 [facility] Last Admin: 12/06/16 11:58 Dose: 100 mls/hr Levetiracetam (Keppra) 500 mg PO Q12H [facility] Last Admin: 12/06/16 08:42 Dose: 500 mg Oxycodone/Acetaminophen (Percocet 5/325 Mg Tab) 1 tab PO Q6H PRN PRN Reason: Pain, moderate (4-7) Stop: 12/06/16 17:18 Last Admin: 12/05/16 09:51 Dose: 1 tab Paricalcitol (Zemplar) 2 mcg IV MWF [facility] Last Admin: 12/03/16 11:36 Dose: 2 mcg Raltegravir (Isentress) 400 mg PO BID [facility] Last Admin: 12/06/16 10:44 Dose: 400 mg Ritonavir (Norvir) 100 mg PO DAILY [facility] Last Admin: 12/06/16 10:44 Dose: 100 mg Zinc Sulfate (Zinc Sulfate 220 Mg Cap) 220 mg PO DAILY [facility] Last Admin: 12/06/16 10:44 Dose: 220 mg Results - Vital Signs Recent Vital Signs: Last Vital Signs Temp 97.3 F L 12/06/16 08:41 Pulse 74 12/06/16 08:41 Resp 19 12/06/16 08:41 BP 160/82 H 12/06/16 08:41 Pulse Ox 96 12/06/16 08:41 - Labs Result Diagrams: 12/06/16 11:06 12/06/16 11:06 Labs: Laboratory Results - last 24 hr 12/06/16 12/06/16 11:06 11:06 WBC 4.1 L RBC 3.01 L Hgb 9.1 L Hct 27.6 L MCV 91.7 MCH 30.3 MCHC 33.0 RDW 18.2 H Plt Count 266 MPV 7.5 Neut % (Auto) 37.9 L Lymph % (Auto) 46.9 H [place] % (Auto) 10.4 H Eos % (Auto) 3.4 Baso % (Auto) 1.4 Neut # 1.6 L Lymph # 1.9 [place] # 0.4 Eos # 0.1 Baso # 0.1 Sodium 134 Potassium 4.0 Chloride 96 L Carbon Dioxide 30 Anion Gap 12 BUN 33 H Creatinine 3.9 H Est GFR ( Amer) 19 Est GFR (Non-Af Amer) 15 Random Glucose 63 L Calcium 9.7 Ferritin 821.0 Total Bilirubin 0.6 AST 26 ALT 23 Alkaline Phosphatase 100 Total Protein 5.7 L Albumin 2.2 L Globulin 3.5 Albumin/Globulin Ratio 0.6 L Carcinoembryonic Ag 3.5 H Prostate Specific Ag < 0.064 Attending/Attestation - Attestation I have personally seen and examined this patient.: Yes I have fully participated in the care of the patient.: Yes I have reviewed all pertinent clinical information: Yes Notes (Text): 12/06/16 13:00 Pt was seen and examined at bedside on 12/06/16 Agree with above note and assessment Pt with Stage 2 Sacral/lower back decubitus ulcer and stage 2 Left lateral thigh decubitus ulcer. Local wound care No need for surgical intervention at present Wound care consult Plan d.w pt and primary team in detail.
--- NOTE | 2016-12-06 13:09 | CP.PCM.PN ---
Subjective - Date & Time of Evaluation Date of Evaluation: 12/06/16 Time of Evaluation: 10:20 - Subjective Subjective: clinically same Objective - Vital Signs/Intake and Output Vital Signs (last 24 hours): Temp Pulse Resp BP Pulse Ox 97.3 F L 74 19 160/82 H 96 12/06/16 08:41 12/06/16 08:41 12/06/16 08:41 12/06/16 08:41 12/06/16 08:41 Intake and Output: 12/06/16 12/06/16 06:59 18:59 Intake Total 80 Balance 80 - Medications Medications: Current Medications Acetaminophen (Tylenol 650mg/20.3ml Solution Ud) 650 mg NG Q6 PRN PRN Reason: Fever >100.4 F Last Admin: 12/02/16 20:15 Dose: 650 mg Albuterol/Ipratropium (Duoneb 3 Mg/0.5 Mg (3 Ml) Ud) 3 ml IH RQ6 [facility] Last Admin: 12/06/16 07:40 Dose: 3 ml Amlodipine Besylate (Norvasc) 10 mg PO DAILY [facility] Last Admin: 12/06/16 10:44 Dose: Not Given Ascorbic Acid (Vitamin C 500 Mg Tab) 500 mg PO BID [facility] Last Admin: 12/06/16 10:44 Dose: 500 mg Clonidine HCl (Catapres Tts1 0.1 Mg/24 Hr) 1 patch TD QWK [facility] Epoetin Chuck (Procrit) 10,000 unit IV MWF [facility] Last Admin: 12/03/16 11:35 Dose: 10,000 unit Famotidine (Pepcid) 20 mg PO DAILY [facility] Last Admin: 12/06/16 10:44 Dose: 20 mg Fosamprenavir Calcium (Lexiva) 700 mg PO BID [facility] Last Admin: 12/06/16 10:44 Dose: 700 mg Piperacillin Sod/Tazobactam Sod (Zosyn 2.25 Gm Iv Premix) 2.25 gm in 50 mls @ 100 mls/hr IVPB Q6 [facility] Last Admin: 12/06/16 11:58 Dose: 100 mls/hr Levetiracetam (Keppra) 500 mg PO Q12H [facility] Last Admin: 12/06/16 08:42 Dose: 500 mg Oxycodone/Acetaminophen (Percocet 5/325 Mg Tab) 1 tab PO Q6H PRN PRN Reason: Pain, moderate (4-7) Stop: 12/06/16 17:18 Last Admin: 12/05/16 09:51 Dose: 1 tab Paricalcitol (Zemplar) 2 mcg IV MWF [facility] Last Admin: 12/03/16 11:36 Dose: 2 mcg Raltegravir (Isentress) 400 mg PO BID [facility] Last Admin: 12/06/16 10:44 Dose: 400 mg Ritonavir (Norvir) 100 mg PO DAILY [facility] Last Admin: 12/06/16 10:44 Dose: 100 mg Zinc Sulfate (Zinc Sulfate 220 Mg Cap) 220 mg PO DAILY [facility] Last Admin: 12/06/16 10:44 Dose: 220 mg - Labs Labs: 12/06/16 11:06 12/06/16 11:06 PT 11.5 SECONDS (9.7-12.2) 12/02/16 17:10 INR 1.0 12/02/16 17:10 APTT 24 SECONDS (21-34) 12/02/16 17:10 - Constitutional Appears: Well - Head Exam Head Exam: ATRAUMATIC, NORMAL INSPECTION, NORMOCEPHALIC - Eye Exam Eye Exam: EOMI, Normal appearance, PERRL Pupil Exam: NORMAL ACCOMODATION, PERRL - ENT Exam ENT Exam: Mucous Membranes Moist, Normal Exam - Neck Exam Neck Exam: Full ROM, Normal Inspection. absent: Lymphadenopathy - Respiratory Exam Respiratory Exam: Decreased Breath Sounds - Cardiovascular Exam Cardiovascular Exam: REGULAR RHYTHM, +S1, +S2 - GI/Abdominal Exam GI & Abdominal Exam: Soft, Diminished Bowel Sounds - Rectal Exam Rectal Exam: Deferred Assessment and Plan - Assessment and Plan (Free Text) Plan: case seen and discussed with the staff and the residents for discharge Marlena discussed with Dr. Olivier surgical consult management as ordered patient refusing colonoscopy patient refusing all kind of workup will resume the Eliquis for discharge would speak to the family
--- NOTE | 2016-12-06 14:07 | CP.PCM.PN ---
<Choco Araya - Last Filed: 12/06/16 14:08> Subjective - Date & Time of Evaluation Date of Evaluation: 12/06/16 Time of Evaluation: 07:50 - Subjective Subjective: Medicine note- Dr. Mckeon's service Patient was seen and examined at bedside. Patient reports no acute complaints at this time. Patient is awake and alert, but is no oriented x 3. No events overnight per nursing. Objective - Vital Signs/Intake and Output Vital Signs (last 24 hours): Temp Pulse Resp BP Pulse Ox 97.3 F L 67 19 160/82 H 96 12/06/16 08:41 12/06/16 13:37 12/06/16 08:41 12/06/16 08:41 12/06/16 08:41 Intake and Output: 12/06/16 12/06/16 06:59 18:59 Intake Total 80 Balance 80 - Medications Medications: Current Medications Acetaminophen (Tylenol 650mg/20.3ml Solution Ud) 650 mg NG Q6 PRN PRN Reason: Fever >100.4 F Last Admin: 12/02/16 20:15 Dose: 650 mg Albuterol/Ipratropium (Duoneb 3 Mg/0.5 Mg (3 Ml) Ud) 3 ml IH RQ6 [facility] Last Admin: 12/06/16 13:37 Dose: 3 ml Amlodipine Besylate (Norvasc) 10 mg PO DAILY [facility] Last Admin: 12/06/16 10:44 Dose: Not Given Ascorbic Acid (Vitamin C 500 Mg Tab) 500 mg PO BID [facility] Last Admin: 12/06/16 10:44 Dose: 500 mg Clonidine HCl (Catapres Tts1 0.1 Mg/24 Hr) 1 patch TD QWK [facility] Epoetin Chuck (Procrit) 10,000 unit IV MWF [facility] Last Admin: 12/03/16 11:35 Dose: 10,000 unit Famotidine (Pepcid) 20 mg PO DAILY [facility] Last Admin: 12/06/16 10:44 Dose: 20 mg Fosamprenavir Calcium (Lexiva) 700 mg PO BID [facility] Last Admin: 12/06/16 10:44 Dose: 700 mg Piperacillin Sod/Tazobactam Sod (Zosyn 2.25 Gm Iv Premix) 2.25 gm in 50 mls @ 100 mls/hr IVPB Q6 [facility] Last Admin: 12/06/16 11:58 Dose: 100 mls/hr Levetiracetam (Keppra) 500 mg PO Q12H [facility] Last Admin: 12/06/16 08:42 Dose: 500 mg Oxycodone/Acetaminophen (Percocet 5/325 Mg Tab) 1 tab PO Q6H PRN PRN Reason: Pain, moderate (4-7) Stop: 12/06/16 17:18 Last Admin: 12/05/16 09:51 Dose: 1 tab Paricalcitol (Zemplar) 2 mcg IV MWF [facility] Last Admin: 12/03/16 11:36 Dose: 2 mcg Raltegravir (Isentress) 400 mg PO BID [facility] Last Admin: 12/06/16 10:44 Dose: 400 mg Ritonavir (Norvir) 100 mg PO DAILY [facility] Last Admin: 12/06/16 10:44 Dose: 100 mg Zinc Sulfate (Zinc Sulfate 220 Mg Cap) 220 mg PO DAILY [facility] Last Admin: 12/06/16 10:44 Dose: 220 mg - Labs Labs: 12/06/16 11:06 12/06/16 11:06 PT 11.5 SECONDS (9.7-12.2) 12/02/16 17:10 INR 1.0 12/02/16 17:10 APTT 24 SECONDS (21-34) 12/02/16 17:10 - Constitutional Appears: Non-toxic, No Acute Distress - Head Exam Head Exam: ATRAUMATIC, NORMAL INSPECTION, NORMOCEPHALIC - Eye Exam Eye Exam: PERRL Pupil Exam: NORMAL ACCOMODATION, PERRL - ENT Exam ENT Exam: Mucous Membranes Moist - Respiratory Exam Respiratory Exam: Clear to Ausculation Bilateral, NORMAL BREATHING PATTERN. absent: Prolonged Expiratory Phase, Rales, Rhonchi, Wheezes - Cardiovascular Exam Cardiovascular Exam: REGULAR RHYTHM, +S1, +S2 - GI/Abdominal Exam GI & Abdominal Exam: Soft, Normal Bowel Sounds - Extremities Exam Extremities Exam: Normal Capillary Refill Additional comments: bilateral UE swelling - Neurological Exam Neurological Exam: Alert, Awake. absent: Oriented x3 - Psychiatric Exam Psychiatric exam: Normal Affect - Skin Skin Exam: Dry, Intact, Normal Color, Warm Assessment and Plan - Assessment and Plan (Free Text) Assessment: Rectal Bleeding Consult GI- Dr. Damon- Peg tube changed on 12/06/16. Patient refused colonoscopy. Hgb 9.2- stable, no witnessed rectal bleeding during stay. IVF NS @ 60cc/hr Multiple Sacral Decubitus Ulcers, varying stages Wound Care Nurse referral Consult ID- Dr. Hernadez- Continue Zosyn 2.25gm IVPB Q6h and Vanco 750mg MWF w dialysis for 1 week. PICC line consent obtain via phone with patient's , Gisella Fontenot. Nurse Yuliet and Nurse Maegan witnessed. Consult Gen Surg- Dr. Faith, no surgical intervention needed at this time. ESRD on HD Consult Nephrology- Dr. Geller ESRD MWF Procrit 1000U IV MWF Zemplar 2mcg IV MWF Renal diet Hepatitis C Continue home med: Isentress 400mg PO BID Norvir 100mg PO Daily Lexiva 700mg PO BID Rx written as per Dr. Hernadez, for Zepatier 50/100mg PO Daily #90, to be filled at outpatient pharmacy by patient's family and brought to [facility] for dispensing. 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 Mckeon Prophylactic Measure Protonix 40mg PO Daily SCDs All medical management as per Dr. Mckeon. patient is to be discharged home . <Sania Mckeon - Last Filed: 12/06/16 20:31> Objective - Vital Signs/Intake and Output Vital Signs (last 24 hours): Temp Pulse Resp BP Pulse Ox 97.5 F L 84 17 137/81 99 12/06/16 17:15 12/06/16 17:15 12/06/16 17:15 12/06/16 17:15 12/06/16 14:15 Intake and Output: 12/06/16 12/07/16 18:59 06:59 Intake Total 400 Balance 400 - Medications Medications: Current Medications Acetaminophen (Tylenol 650mg/20.3ml Solution Ud) 650 mg NG Q6 PRN PRN Reason: Fever >100.4 F Last Admin: 12/02/16 20:15 Dose: 650 mg Albuterol/Ipratropium (Duoneb 3 Mg/0.5 Mg (3 Ml) Ud) 3 ml IH RQ6 [facility] Last Admin: 12/06/16 20:19 Dose: 3 ml Amlodipine Besylate (Norvasc) 10 mg PO DAILY [facility] Last Admin: 12/06/16 10:44 Dose: Not Given Ascorbic Acid (Vitamin C 500 Mg Tab) 500 mg PO BID [facility] Last Admin: 12/06/16 19:41 Dose: 500 mg Clonidine HCl (Catapres Tts1 0.1 Mg/24 Hr) 1 patch TD QWK [facility] Epoetin Chuck (Procrit) 10,000 unit IV MWF [facility] Last Admin: 12/06/16 16:33 Dose: 10,000 unit Famotidine (Pepcid) 20 mg PO DAILY [facility] Last Admin: 12/06/16 10:44 Dose: 20 mg Fosamprenavir Calcium (Lexiva) 700 mg PO BID [facility] Last Admin: 12/06/16 19:42 Dose: 700 mg Piperacillin Sod/Tazobactam Sod (Zosyn 2.25 Gm Iv Premix) 2.25 gm in 50 mls @ 100 mls/hr IVPB Q6 [facility] Last Admin: 12/06/16 19:40 Dose: 100 mls/hr Levetiracetam (Keppra) 500 mg PO Q12H [facility] Last Admin: 12/06/16 19:41 Dose: 500 mg Paricalcitol (Zemplar) 2 mcg IV MWF [facility] Last Admin: 12/06/16 16:33 Dose: 2 mcg Raltegravir (Isentress) 400 mg PO BID [facility] Last Admin: 12/06/16 19:56 Dose: 400 mg Ritonavir (Norvir) 100 mg PO DAILY [facility] Last Admin: 12/06/16 10:44 Dose: 100 mg Zinc Sulfate (Zinc Sulfate 220 Mg Cap) 220 mg PO DAILY [facility] Last Admin: 12/06/16 10:44 Dose: 220 mg - Labs Labs: 12/06/16 11:06 12/06/16 11:06 PT 11.5 SECONDS (9.7-12.2) 12/02/16 17:10 INR 1.0 12/02/16 17:10 APTT 24 SECONDS (21-34) 12/02/16 17:10 Attending/Attestation - Attestation I have personally seen and examined this patient.: Yes I have fully participated in the care of the patient.: Yes I have reviewed all pertinent clinical information, including history, physical exam and plan: Yes Notes (Text): 12/06/16 20:31 Case seen and discussed with the staff and the residents for discharge Marlena discussed with Dr. Olivier surgical consult management as ordered patient refusing colonoscopy patient refusing all kind of workup will resume the Eliquis for discharge would speak to the family
[2016-12-06] MEDS: Paricalcitol 2 mcg/ml Inj IV SCH (16:33)
[2016-12-06] MEDS: Epoetin Alfa 10,000 unit/ml Dialysis IV SCH (16:33)
[2016-12-07] MEDS: Piperacill/Tazo 2.25gm in Dex 2.25 GM/50 ML BAG IVPB SCH ×3 (01:11→12:58)
[2016-12-07 01:47] VITALS: RESP 20
[2016-12-07] MEDS: Albuterol-Ipratrop 3 mg / 0.5 (3 ml) UD IH SCH ×3 (02:33→13:29)
--- NOTE | 2016-12-07 09:55 | CP.PCM.PN ---
Subjective - Date & Time of Evaluation Date of Evaluation: 12/07/16 Time of Evaluation: 07:00 - Subjective Subjective: Pgy-2 Resident Progress Note for Dr. Mckeon Patient seen and examined at bedside. No reported acute events overnight. Patient requires PICC placement prior to discharge. Patient is awake and alert, but not oriented. Unable to obtain detailed ROS due to mental status. Objective - Vital Signs/Intake and Output Vital Signs (last 24 hours): Temp Pulse Resp BP Pulse Ox 98.3 F 81 20 110/66 95 12/07/16 07:37 12/07/16 07:37 12/07/16 07:37 12/07/16 07:37 12/07/16 07:37 Intake and Output: 12/07/16 12/07/16 06:59 18:59 Intake Total 100 Balance 100 - Medications Medications: Current Medications Acetaminophen (Tylenol 650mg/20.3ml Solution Ud) 650 mg NG Q6 PRN PRN Reason: Fever >100.4 F Last Admin: 12/02/16 20:15 Dose: 650 mg Albuterol/Ipratropium (Duoneb 3 Mg/0.5 Mg (3 Ml) Ud) 3 ml IH RQ6 [facility] Last Admin: 12/07/16 08:37 Dose: 3 ml Amlodipine Besylate (Norvasc) 10 mg PO DAILY [facility] Last Admin: 12/06/16 10:44 Dose: Not Given Apixaban (Eliquis) 2.5 mg PO BID [facility] Ascorbic Acid (Vitamin C 500 Mg Tab) 500 mg PO BID [facility] Last Admin: 12/06/16 19:41 Dose: 500 mg Clonidine HCl (Catapres Tts1 0.1 Mg/24 Hr) 1 patch TD QWK [facility] Epoetin Chuck (Procrit) 10,000 unit IV MWF [facility] Last Admin: 12/06/16 16:33 Dose: 10,000 unit Famotidine (Pepcid) 20 mg PO DAILY [facility] Last Admin: 12/06/16 10:44 Dose: 20 mg Fosamprenavir Calcium (Lexiva) 700 mg PO BID [facility] Last Admin: 12/06/16 19:42 Dose: 700 mg Piperacillin Sod/Tazobactam Sod (Zosyn 2.25 Gm Iv Premix) 2.25 gm in 50 mls @ 100 mls/hr IVPB Q6 [facility] Last Admin: 12/07/16 05:28 Dose: 100 mls/hr Levetiracetam (Keppra) 500 mg PO Q12H [facility] Last Admin: 12/06/16 19:41 Dose: 500 mg Paricalcitol (Zemplar) 2 mcg IV MWF [facility] Last Admin: 12/06/16 16:33 Dose: 2 mcg Raltegravir (Isentress) 400 mg PO BID [facility] Last Admin: 12/06/16 19:56 Dose: 400 mg Ritonavir (Norvir) 100 mg PO DAILY [facility] Last Admin: 12/06/16 10:44 Dose: 100 mg Zinc Sulfate (Zinc Sulfate 220 Mg Cap) 220 mg PO DAILY [facility] Last Admin: 12/06/16 10:44 Dose: 220 mg - Labs Labs: 12/06/16 11:06 12/06/16 11:06 PT 11.5 SECONDS (9.7-12.2) 12/02/16 17:10 INR 1.0 12/02/16 17:10 APTT 24 SECONDS (21-34) 12/02/16 17:10 - Constitutional Appears: Non-toxic, No Acute Distress - Head Exam Head Exam: ATRAUMATIC, NORMAL INSPECTION - Eye Exam Eye Exam: Normal appearance - ENT Exam ENT Exam: Mucous Membranes Moist - Neck Exam Neck Exam: Normal Inspection - Respiratory Exam Respiratory Exam: Clear to Ausculation Bilateral, NORMAL BREATHING PATTERN. absent: Respiratory Distress - Cardiovascular Exam Cardiovascular Exam: REGULAR RHYTHM, +S1, +S2 - GI/Abdominal Exam GI & Abdominal Exam: Soft, Normal Bowel Sounds - Extremities Exam Extremities Exam: Normal Capillary Refill Additional comments: bilateral UE swelling - Neurological Exam Neurological Exam: Alert, Awake. absent: Oriented x3 - Psychiatric Exam Psychiatric exam: Normal Affect - Skin Skin Exam: Normal Color, Warm Assessment and Plan - Assessment and Plan (Free Text) Assessment: Rectal Bleeding Consult GI- Dr. Damon- Peg tube changed on 12/06/16. Patient refused colonoscopy. Hgb 9.6 today- stable, no witnessed rectal bleeding during stay. Vitals stable Multiple Sacral Decubitus Ulcers, varying stages Wound Care Nurse referral Consult ID- Dr. Hernadez- Continue Zosyn 2.25gm IVPB Q6h and Vanco 750mg MWF w dialysis for 1 week. PICC line consent obtain via phone with patient's , Gisella Fontenot. Nurse Yuliet and Nurse Maegan witnessed. Consult Gen Surg- Dr. Faith, no surgical intervention needed at this time. PICC line placed by IR today ESRD on HD Consult Nephrology- Dr. Geller ESRD MWF Procrit 1000U IV MWF Zemplar 2mcg IV MWF Renal diet Hepatitis C Continue home med: Isentress 400mg PO BID Norvir 100mg PO Daily Lexiva 700mg PO BID Rx written as per Dr. Hernadez, for Zepatier 50/100mg PO Daily #90, to be filled at outpatient pharmacy by patient's family and brought to [facility] for dispensing. 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 Mckeon Prophylactic Measure Protonix 40mg PO Daily SCDs Disposition: [facility] All medical management as per Dr. Mckeon.
[2016-12-07 11:45] LABS: BASO # 0.1 K/uL (0.0-0.2); BASO % 0.9 % (0.0-2.0); EOS # 0.1 K/uL (0.0-0.7); EOS % 1.5 % (0.0-4.0); HEMATOCRIT 29.3 % (35.0-51.0); LYMPH # 2.7 K/uL (1.0-4.3); LYMPH % 41.1 % (20.0-40.0); MEAN CELL VOLUME 92.9 fL (80.0-94.0); MEAN CORPUSCULAR HEMOGLOBIN 30.3 pg (27.0-31.0); MEAN CORPUSCULAR HGB CONC 32.7 g/dL (33.0-37.0); MEAN PLATELET VOLUME 7.9 fL (7.2-11.7); MONO # 0.9 K/uL (0.0-0.8); MONO % 13.7 % (0.0-10.0); NRBC % 0.2 % (0.0-2.0); RED CELL DISTRIBUTION WIDTH 17.8 % (11.5-14.5)
[2016-12-07 11:53] LABS: WHITE BLOOD COUNT 6.5 K/uL (4.8-10.8)
[2016-12-07 12:09] LABS: POTASSIUM 3.8 mmol/L (3.6-5.2)
[2016-12-07 12:12] LABS: ALB/GLOB RATIO 0.6 (1.0-2.1); BILIRUBIN,TOTAL 0.5 mg/dL (0.2-1.3); TOTAL PROTEIN 5.8 g/dL (6.3-8.3)
--- NOTE | 2016-12-07 12:56 | PCM.SURG1 ---
Surgeon's Initial Post Op Note - Surgeon's Notes Surgeon: Efren Farmer MD Hospice Fellow: None Type of Anesthesia: Local Pre-Operative Diagnosis: Poor venous access Operative Findings: Small right basilic vein. Small brachial rhea. Central venous stenosis. Post-Operative Diagnosis: Poor venous access Operation Performed: SIngle lumen picc placement right brachial vein, 23 cm. Tip in axillary vein. Specimen/Specimens Removed: None Estimated Blood Loss: EBL {In ML}: 5 Blood Products Given: N/A Drains Used: No Drains Post-Op Condition: Fair Date of Surgery/Procedure: 12/07/16 Time of Surgery/Procedure: 12:50
--- NOTE | 2016-12-07 13:45 | CP.PCM.PN ---
Subjective - Date & Time of Evaluation Date of Evaluation: 12/07/16 Time of Evaluation: 13:43 - Subjective Subjective: seen and examined s/p hd yesterday admitted for rectal bleed, bed sores feels well, wants to go back home today Objective - Vital Signs/Intake and Output Vital Signs (last 24 hours): Temp Pulse Resp BP Pulse Ox 98.3 F 81 20 110/66 95 12/07/16 07:37 12/07/16 07:37 12/07/16 07:37 12/07/16 07:37 12/07/16 07:37 Intake and Output: 12/07/16 12/07/16 06:59 18:59 Intake Total 100 Balance 100 - Medications Medications: Current Medications Acetaminophen (Tylenol 650mg/20.3ml Solution Ud) 650 mg NG Q6 PRN PRN Reason: Fever >100.4 F Last Admin: 12/02/16 20:15 Dose: 650 mg Albuterol/Ipratropium (Duoneb 3 Mg/0.5 Mg (3 Ml) Ud) 3 ml IH RQ6 [facility] Last Admin: 12/07/16 13:29 Dose: 3 ml Amlodipine Besylate (Norvasc) 10 mg PO DAILY [facility] Last Admin: 12/07/16 10:24 Dose: 10 mg Apixaban (Eliquis) 2.5 mg PO BID [facility] Last Admin: 12/07/16 10:34 Dose: Not Given Ascorbic Acid (Vitamin C 500 Mg Tab) 500 mg PO BID [facility] Last Admin: 12/07/16 10:24 Dose: 500 mg Clonidine HCl (Catapres Tts1 0.1 Mg/24 Hr) 1 patch TD QWK [facility] Epoetin Chuck (Procrit) 10,000 unit IV MWF [facility] Last Admin: 12/06/16 16:33 Dose: 10,000 unit Famotidine (Pepcid) 20 mg PO DAILY [facility] Last Admin: 12/07/16 10:24 Dose: 20 mg Fosamprenavir Calcium (Lexiva) 700 mg PO BID [facility] Last Admin: 12/07/16 10:25 Dose: 700 mg Piperacillin Sod/Tazobactam Sod (Zosyn 2.25 Gm Iv Premix) 2.25 gm in 50 mls @ 100 mls/hr IVPB Q6 [facility] Last Admin: 12/07/16 12:58 Dose: 100 mls/hr Levetiracetam (Keppra) 500 mg PO Q12H [facility] Last Admin: 12/07/16 08:44 Dose: 500 mg Paricalcitol (Zemplar) 2 mcg IV [facility] Last Admin: 12/06/16 16:33 Dose: 2 mcg Raltegravir (Isentress) 400 mg PO BID [facility] Last Admin: 12/07/16 10:24 Dose: 400 mg Ritonavir (Norvir) 100 mg PO DAILY [facility] Last Admin: 12/07/16 10:25 Dose: 100 mg Zinc Sulfate (Zinc Sulfate 220 Mg Cap) 220 mg PO DAILY [facility] Last Admin: 12/07/16 10:24 Dose: 220 mg - Labs Labs: 12/07/16 11:35 12/07/16 11:35 PT 11.5 SECONDS (9.7-12.2) 12/02/16 17:10 INR 1.0 12/02/16 17:10 APTT 24 SECONDS (21-34) 12/02/16 17:10 - Constitutional Appears: Non-toxic, No Acute Distress, Chronically Ill - Head Exam Head Exam: NORMAL INSPECTION - Eye Exam Eye Exam: Normal appearance - ENT Exam ENT Exam: Mucous Membranes Moist, Normal Exam - Neck Exam Neck Exam: Normal Inspection - Respiratory Exam Respiratory Exam: Clear to Ausculation Bilateral, NORMAL BREATHING PATTERN - Cardiovascular Exam Cardiovascular Exam: REGULAR RHYTHM, RRR - GI/Abdominal Exam GI & Abdominal Exam: Distended, Soft, Normal Bowel Sounds - Extremities Exam Extremities Exam: Normal Inspection Additional comments: sheryl parker Assessment and Plan (1) Rectal bleeding Status: Acute (2) Anemia Status: Acute (3) Decubitus skin ulcer Status: Acute (4) ESRD (end stage renal disease) Status: Acute (5) Fall as cause of accidental injury in home as place of occurrence Status: Acute - Assessment and Plan (Free Text) Assessment: hd tomorrow mwf procrit w/ hd bp acceptable wound care
[2016-12-07 15:17] VITALS: BP 119/71; PULSE 85; TEMP 98.5; O2SAT 96
--- NOTE | 2016-12-07 16:52 | CP.PCM.PN ---
Subjective - Date & Time of Evaluation Date of Evaluation: 12/07/16 Time of Evaluation: 10:00 - Subjective Subjective: clinically same Objective - Vital Signs/Intake and Output Vital Signs (last 24 hours): Temp Pulse Resp BP Pulse Ox 98.5 F 85 20 119/71 96 12/07/16 15:10 12/07/16 15:10 12/07/16 15:10 12/07/16 15:10 12/07/16 15:10 Intake and Output: 12/07/16 12/07/16 06:59 18:59 Intake Total 100 460 Balance 100 460 - Medications Medications: Current Medications Acetaminophen (Tylenol 650mg/20.3ml Solution Ud) 650 mg NG Q6 PRN PRN Reason: Fever >100.4 F Last Admin: 12/02/16 20:15 Dose: 650 mg Albuterol/Ipratropium (Duoneb 3 Mg/0.5 Mg (3 Ml) Ud) 3 ml IH RQ6 [facility] Last Admin: 12/07/16 13:29 Dose: 3 ml Amlodipine Besylate (Norvasc) 10 mg PO DAILY [facility] Last Admin: 12/07/16 10:24 Dose: 10 mg Apixaban (Eliquis) 2.5 mg PO BID [facility] Last Admin: 12/07/16 10:34 Dose: Not Given Ascorbic Acid (Vitamin C 500 Mg Tab) 500 mg PO BID [facility] Last Admin: 12/07/16 10:24 Dose: 500 mg Clonidine HCl (Catapres Tts1 0.1 Mg/24 Hr) 1 patch TD QWK [facility] Epoetin Chuck (Procrit) 10,000 unit IV MWF [facility] Last Admin: 12/06/16 16:33 Dose: 10,000 unit Famotidine (Pepcid) 20 mg PO DAILY [facility] Last Admin: 12/07/16 10:24 Dose: 20 mg Fosamprenavir Calcium (Lexiva) 700 mg PO BID [facility] Last Admin: 12/07/16 10:25 Dose: 700 mg Piperacillin Sod/Tazobactam Sod (Zosyn 2.25 Gm Iv Premix) 2.25 gm in 50 mls @ 100 mls/hr IVPB Q6 [facility] Last Admin: 12/07/16 12:58 Dose: 100 mls/hr Levetiracetam (Keppra) 500 mg PO Q12H [facility] Last Admin: 12/07/16 08:44 Dose: 500 mg Paricalcitol (Zemplar) 2 mcg IV MWF [facility] Last Admin: 12/06/16 16:33 Dose: 2 mcg Raltegravir (Isentress) 400 mg PO BID [facility] Last Admin: 12/07/16 10:24 Dose: 400 mg Ritonavir (Norvir) 100 mg PO DAILY [facility] Last Admin: 12/07/16 10:25 Dose: 100 mg Zinc Sulfate (Zinc Sulfate 220 Mg Cap) 220 mg PO DAILY [facility] Last Admin: 12/07/16 10:24 Dose: 220 mg - Labs Labs: 12/07/16 11:35 12/07/16 11:35 PT 11.5 SECONDS (9.7-12.2) 12/02/16 17:10 INR 1.0 12/02/16 17:10 APTT 24 SECONDS (21-34) 12/02/16 17:10 - Constitutional Appears: Well - Head Exam Head Exam: ATRAUMATIC, NORMAL INSPECTION, NORMOCEPHALIC - Eye Exam Eye Exam: EOMI, Normal appearance, PERRL Pupil Exam: NORMAL ACCOMODATION, PERRL - ENT Exam ENT Exam: Mucous Membranes Moist, Normal Exam - Neck Exam Neck Exam: Full ROM, Normal Inspection. absent: Lymphadenopathy - Respiratory Exam Respiratory Exam: Decreased Breath Sounds - Cardiovascular Exam Cardiovascular Exam: REGULAR RHYTHM, +S1, +S2 - GI/Abdominal Exam GI & Abdominal Exam: Soft, Diminished Bowel Sounds - Rectal Exam Rectal Exam: Deferred
--- NOTE | 2016-12-13 11:52 | RAD ---
PROCEDURE: Date of procedure: 12/07/2016 Procedure: 1. Placement of a right arm PICC with ultrasound and fluoroscopic guidance, CPT 63580 2. PICC tip confirmation with spot radiograph and is in the axillary vein Medications: 3cc 1 percent lidocaine Total Fluoro time: 4 seconds Radiation: 2 mGy EBL: 2 cc HISTORY: Poor venous access TECHNIQUE: Following informed consent and procedure time-out, the patient was placed supine on the interventional table and the right arm prepped and draped in the usual sterile fashion. Ultrasound showed a patent and compressible right basilic vein. After the skin was anesthetized with lidocaine, the basilic vein was accessed with micro micropuncture technique using ultrasound guidance. There is difficulty advancing the guidewire centrally. An image documenting ultrasound guidance for vascular access was permanently saved. The length of the single-lumen 4 [place]ian PICC was trimmed to 23 centimeters and advanced through a peel-away sheath. The PICC was position with tip of PICC confirm a spot radiograph the axillary vein. The PICC could not be advanced into the subclavian vein and superior vena cava. The PICC was secured to the patient's skin. The PICC was flushed. A biopatch and sterile dressing was applied. IMPRESSION: Placement of a single-lumen 4 [place]ian PICC trimmed to 23 centimeters via right basilic vein. The tip of the PICC is confirmed with spot radiograph and is in the axillary vein. The PICC could not be advanced centrally.
--- NOTE | 2016-12-13 11:53 | US ---
Date of procedure: 12/07/2016 Procedure: Ultrasound guidance for vascular access HISTORY: Infection requiring long-term IV antibiotics TECHNIQUE: Following informed consent and procedure time-out, the patient placed supine on the interventional table and the right arm prepped and draped in the usual sterile fashion. Ultrasound showed a patent and compressible basilic vein. After the skin was anesthetized with lidocaine, the basilic vein was accessed with micro micropuncture technique using ultrasound guidance. An image documenting ultrasound guidance for vascular access was permanently saved. IMPRESSION: Ultrasound guidance for vascular access for placement of PICC.
--- NOTE | 2016-12-14 20:04 | CARD ---
APPROVED REPORT EKG Measurement Heart [id number] MD [id number] <Conclusion> Sinus rhythm with 1st degree AV block Left axis deviation Left bundle branch block Abnormal ECG
== END 2016-12-07 17:50 | DRG 377 ==
LOC: C.ER 16:31 → C.9E 18:00 → OBSVTOIN 18:00 → C.5T 19:13
PROVIDERS: ADMIT Internal Medicine Nephrology; ATTEND Internal Medicine Nephrology
PROC: 5A1D60Z (ICD-10-PCS; 2016-12-03)
PROC: 3E0G76Z Introduction of Nutritional Substance into Upper GI, Via Natural or Artificial Opening (ICD-10-PCS; 2016-12-03)
PROC: 0D20XUZ Change Feeding Device in Upper Intestinal Tract, External Approach (ICD-10-PCS; principal; 2016-12-06)
PROC: 02HV33Z Insertion of Infusion Device into Superior Vena Cava, Percutaneous Approach (ICD-10-PCS; 2016-12-07)
DX: K62.5 Hemorrhage of anus and rectum (principal); N18.6 End stage renal disease; L89.314 Pressure ulcer of right buttock, stage 4; I13.2 Hypertensive heart and chronic kidney disease with heart failure and with stage 5 chronic kidney disease, or end stage renal disease; L89.324 Pressure ulcer of left buttock, stage 4; G82.50 Quadriplegia, unspecified; B20 Human immunodeficiency virus [HIV] disease; I50.9 Heart failure, unspecified; L89.103 Pressure ulcer of unspecified part of back, stage 3; I82.C22 Chronic embolism and thrombosis of left internal jugular vein; Q61.3 Polycystic kidney, unspecified; K94.23 Gastrostomy malfunction; R64 Cachexia; L89.152 Pressure ulcer of sacral region, stage 2; L89.220 Pressure ulcer of left hip, unstageable; I25.10 Atherosclerotic heart disease of native coronary artery without angina pectoris; B18.2 Chronic viral hepatitis C; K59.00 Constipation, unspecified; D63.1 Anemia in chronic kidney disease; K21.9 Gastro-esophageal reflux disease without esophagitis; Y83.3 Surgical operation with formation of external stoma as the cause of abnormal reaction of the patient, or of later complication, without mention of misadventure at the time of the procedure; Z86.73 Personal history of transient ischemic attack (TIA), and cerebral infarction without residual deficits; Z85.46 Personal history of malignant neoplasm of prostate; Z87.891 Personal history of nicotine dependence; Z92.3 Personal history of irradiation; Z86.010 Personal history of colon polyps; Z99.2 Dependence on renal dialysis

== ENCOUNTER 2017-01-17 12:17 | Inpatient (IN) | payer MEDICARE, OTHER ==
[2017-01-17 12:17] VITALS: BMI 22.6
[2017-01-17 14:02] LABS: BASO # 0.1 K/uL (0.0-0.2); BASO % 0.8 % (0.0-2.0); EOS # 0.3 K/uL (0.0-0.7); EOS % 5.1 % (0.0-4.0); HEMATOCRIT 26.4 % (35.0-51.0); LYMPH # 2.6 K/uL (1.0-4.3); MEAN CORPUSCULAR HEMOGLOBIN 27.7 pg (27.0-31.0); MEAN CORPUSCULAR HGB CONC 32.3 g/dL (33.0-37.0); MEAN PLATELET VOLUME 7.6 fL (7.2-11.7); MONO # 0.7 K/uL (0.0-0.8); MONO % 10.7 % (0.0-10.0); NRBC % 0.1 % (0.0-2.0); RED CELL DISTRIBUTION WIDTH 16.4 % (11.5-14.5); WHITE BLOOD COUNT 6.4 K/uL (4.8-10.8)
[2017-01-17 14:04] LABS: MEAN CELL VOLUME 85.9 fL (80.0-94.0)
[2017-01-17 14:11] LABS: INR 1.2
[2017-01-17 14:24] LABS: POTASSIUM 4.6 mmol/L (3.6-5.2)
[2017-01-17 14:28] LABS: ALB/GLOB RATIO 0.6 (1.0-2.1); BILIRUBIN,TOTAL 0.5 mg/dL (0.2-1.3); CALCIUM 9.7 mg/dl (8.6-10.4); TOTAL PROTEIN 6.8 g/dL (6.3-8.3)
--- NOTE | 2017-01-17 15:59 | RAD ---
PROCEDURE: CHEST RADIOGRAPH, 1 VIEW HISTORY: ESRD, right PICC COMPARISON: 12/02/2016. FINDINGS: LUNGS: No discrete infiltrates. Pulmonary vascular congestion. PLEURA: Bilateral pleural effusions left larger than right. CARDIOVASCULAR: Cardiomegaly OSSEOUS STRUCTURES: No significant abnormalities. VISUALIZED UPPER ABDOMEN: Normal. OTHER FINDINGS: None. IMPRESSION: Pulmonary vascular 13 2 estrogen, cardiomegaly with fluid overload.
--- NOTE | 2017-01-17 16:49 | C.PDOC ---
History Of Present Illness Pt was sent in the the ER for dialysis catheter not working. Time Seen by Provider: 01/17/17 13:08 Chief Complaint (Nursing): Vascular Access Device Problem History Per: Patient, Other (NH transfer papers) History/Exam Limitations: clinical condition Onset/Duration Of Symptoms: Unknown (today) Current Symptoms Are (Timing): Still Present Severity: Moderate Context: ESRD on hemodialysis Location: Left groin Quality: Not working Additional History Per: Snf, Prior Records Past Medical History Reviewed: Historical Data, Nursing Documentation, Vital Signs Vital Signs: Last Vital Signs Temp 98.0 F 01/17/17 12:30 Pulse 86 01/17/17 13:58 Resp 14 01/17/17 13:58 BP 140/53 L 01/17/17 13:58 Pulse Ox 97 01/17/17 16:52 - Medical History PMH: CHF, Colonic Polyps, HIV, HTN, End Stage Renal Disease (on dialysis), Chronic Kidney Disease Surgical History: - [facility] Procedures BYPASS TRACHEA TO CUTANEOUS WITH TRACH DEV, PERC APPROACH (04/02/15) C.A.T. SCAN OF ABDOMEN (06/21/03) CHANGE FEEDING DEVICE IN UP INTEST TRACT, VALET PARKER APPROACH (12/02/16) ESOPHAGOGASTRODUODENOSCOPY [EGD] W/CLOSED BIOPSY (07/08/14) HEMODIALYSIS (08/03/14) INSERTION OF ENDOTRACHEAL AIRWAY INTO TRACHEA, VIA OPENING (04/02/15) INSERTION OF FEEDING DEVICE INTO STOMACH, PERC APPROACH (04/02/15) INSERTION OF INFUSION DEV INTO SUP VENA CAVA, PERC APPROACH (12/02/16) INTRODUCTION OF NUTRITIONAL INTO UP GI, VIA OPENING (12/02/16) NEBULIZER THERAPY (08/03/14) OCCUPATIONAL THERAPY (08/03/14) PACKED CELL TRANSFUSION (11/05/12) PERCUTAN NEEDLE BX OF LIVER (06/21/03) PERFORMANCE OF URINARY FILTRATION, MULTIPLE (12/02/16) PHYSICAL THERAPY NEC (08/03/14) RESPIRATORY VENTILATION, GREATER THAN 96 CONSECUTIVE HOURS (04/02/15) TRANSFUSE NONAUT PLATELETS IN PERIPH VEIN, PERC (04/02/15) TRANSFUSE NONAUT RED BLOOD CELLS IN PERIPH VEIN, PERC (06/27/15) TU DESTRUC BLADD LES NEC (11/20/12) Family History: States: Unknown Family Hx - Social History Hx Tobacco Use: No Hx Alcohol Use: No Hx Substance Use: No - Immunization History Hx Tetanus Toxoid Vaccination: No Hx Influenza Vaccination: Yes Hx Pneumococcal Vaccination: No Review Of Systems Review Of Systems: ROS cannot be obtained secondary to pt's inabilty to answer questions. Physical Exam - Physical Exam Appears: Chronically Ill Skin: Warm, Dry Head: Atraumatic Neck: Normal ROM, Supple Cardiovascular: Rhythm Regular Respiratory: No Accessory Muscle Use Gastrointestinal/Abdominal: Soft, No Tenderness Extremity: Other (edema of b/l upper extremities. PICC line in right arm. Dialysis catheter in left groin.) Neurological/Psych: Eyes Open With Command ED Course And Treatment - Laboratory Results Result Diagrams: 01/17/17 13:58 01/17/17 13:58 Lab Interpretation: Abnormal Interpretation Of Abnormal: Anemia. Renal failure. O2 Sat by Pulse Oximetry: 97 Pulse Ox Interpretation: Normal - Physician Consult Information Physician Contacted: Vivek Wagner Jr. (Surger.) Outcome Of Conversation: He is planning on taking pt to the OR tomorrow for change of dialysis catheter. Disposition Discussed With : Sania Mckeon Comment: He accepted pt on his service. I also talked to the pt's over the telephone and she is ok with him being hospitalized this time. Counseled Patient/Family Regarding: Studies Performed, Diagnosis - Disposition Disposition: HOSPITALIZED Disposition Time: 16:50 Condition: GUARDED - Clinical Impression Clinical Impression: Admission for dialysis and dialysis catheter care
--- NOTE | 2017-01-17 17:56 | CP.PCM.CON ---
History of Present Illness - History of Present Illness History of Present Illness: Surgery 71 M w PMH of ESRD on HD MWF, HIV, Dementia is sent from alf when HD catheter stopped working. Pt has dementia and is poor historian. Denies F/C/N/V/ D/CP/SOB. Pt currently has L femoral HD catheter. With Bedside US, CARLOS DODSON R femoral veins are un-visualized. Review of Systems - Review of Systems Review of Systems: See HPI - Constitutional Constitutional: absent: Anorexia, Chills, Night Sweats, Weight Loss, Weakness Past Patient History - Infectious Disease Hx of Infectious Diseases: None - Tetanus Immunizations Tetanus Immunization: Unknown - Past Medical History & Family History Past Medical History?: Yes - Past Social History Smoking Status: Former Smoker - CARDIAC Hx Congestive Heart Failure: Yes Hx Hypertension: Yes - PULMONARY Hx Respiratory Disorders: No Other/Comment: tracheostomy - NEUROLOGICAL Hx Neurological Disorder: No - HEENT Hx HEENT Problems: No - RENAL Hx Chronic Kidney Disease: Yes - ENDOCRINE/METABOLIC Hx Endocrine Disorders: No - HEMATOLOGICAL/ONCOLOGICAL Hx Human Immunodeficiency Virus (HIV): Yes - INTEGUMENTARY Hx Dermatological Problems: No Other/Comment: multiple skin ulcers, bilat back, sacro-coccyx, healing sores both lower exts and buttocks sacral stage 4 ulcer [id number],. left hip unstageable,,stage 3 bilat back,right side 6cm x 2 cm. right mid back skin ulcer stage 2, 6cm x 3 cm,, multiple hip areas in healing stage dsd on back and sacral ulcers, - MUSCULOSKELETAL/RHEUMATOLOGICAL Hx Falls: No - GASTROINTESTINAL Hx Gastrointestinal Disorders: Yes Hx Gastroesophageal Reflux: Yes Hx Hemorrhoids: Yes Other/Comment: PEG tube in place - GENITOURINARY/GYNECOLOGICAL Hx Genitourinary Disorders: Yes Hx Prostate Cancer: Yes (2010 HAD RADIATION WITH SEED IMPLANT; NO SURGERY) Other/Comment: ESRD ON HD pt is anuric - PSYCHIATRIC Hx Substance Use: No - ANESTHESIA Hx Anesthesia: Yes Hx Anesthesia Reactions: No Hx Malignant Hyperthermia: No Meds Allergies/Adverse Reactions: Allergies Allergy/AdvReac Type Severity Reaction Status Date / Time No Known Allergies Allergy Verified 01/17/17 12:31 Physical Exam - Constitutional Appears: No Acute Distress - Head Exam Head Exam: ATRAUMATIC, NORMAL INSPECTION, NORMOCEPHALIC - Eye Exam Eye Exam: EOMI, Normal appearance, PERRL Pupil Exam: NORMAL ACCOMODATION, PERRL - ENT Exam ENT Exam: Mucous Membranes Moist, Normal Exam - Neck Exam Neck exam: Negative for: Tenderness Additional comments: Healed Tracheostomy wound. - Respiratory Exam Respiratory Exam: Clear to Auscultation Bilateral, NORMAL BREATHING PATTERN - Cardiovascular Exam Cardiovascular Exam: REGULAR RHYTHM, +S1, +S2 - GI/Abdominal Exam GI & Abdominal Exam: Soft. absent: Rebound, Rigid, Tenderness - Exam Exam: NORMAL INSPECTION - Extremities Exam Additional comments: L groin HD catheter in place. - Back Exam Back exam: NORMAL INSPECTION - Neurological Exam Neurological exam: Alert, CN II-XII Intact, Oriented x3, Reflexes Normal - Psychiatric Exam Psychiatric exam: Normal Affect, Normal Mood - Skin Skin Exam: Dry, Intact, Normal Color, Warm Results - Vital Signs Recent Vital Signs: Last Vital Signs Temp 98.0 F 01/17/17 12:30 Pulse 85 01/17/17 17:40 Resp 20 01/17/17 17:40 BP 185/51 H 01/17/17 17:40 Pulse Ox 97 01/17/17 17:01 - Labs Result Diagrams: 01/17/17 13:58 01/17/17 13:58 Labs: Laboratory Results - last 24 hr 01/17/17 01/17/17 01/17/17 13:58 13:58 13:58 WBC 6.4 RBC 3.07 L Hgb 8.5 L Hct 26.4 L MCV 85.9 D MCH 27.7 MCHC 32.3 L RDW 16.4 H Plt Count 333 MPV 7.6 Neut % (Auto) 43.4 L Lymph % (Auto) 40.0 Johnson % (Auto) 10.7 H Eos % (Auto) 5.1 H Baso % (Auto) 0.8 Neut # 2.8 Lymph # 2.6 Johnson # 0.7 Eos # 0.3 Baso # 0.1 PT 13.2 H INR 1.2 APTT 33 Sodium 134 Potassium 4.6 Chloride 98 Carbon Dioxide 27 Anion Gap 14 BUN 52 H Creatinine 3.9 H Est GFR ( Amer) 19 Est GFR (Non-Af Amer) 15 Random Glucose 82 Calcium 9.7 Total Bilirubin 0.5 AST 44 ALT 33 Alkaline Phosphatase 130 H Total Protein 6.8 Albumin 2.7 L D Globulin 4.2 H Albumin/Globulin Ratio 0.6 L Assessment & Plan - Assessment and Plan (Free Text) Assessment: ESRD needing HD: dysfunctional HD cath on L groin: Poor venous access\ -OR Tues for HD cath replacement -F/U AXR -NPO after midnight -Medical management CASEY Wagner
[2017-01-17] MEDS ORDERED: Morphine 4 MG/ML VIAL ONE (18:06)
--- NOTE | 2017-01-17 21:43 | CP.PCM.HP ---
Past Patient History - Infectious Disease Hx of Infectious Diseases: None - Tetanus Immunizations Tetanus Immunization: Unknown - Past Medical History & Family History Past Medical History?: Yes - Past Social History Smoking Status: Former Smoker - CARDIAC Hx Congestive Heart Failure: Yes Hx Hypertension: Yes - PULMONARY Hx Respiratory Disorders: No Other/Comment: tracheostomy - NEUROLOGICAL Hx Neurological Disorder: No - HEENT Hx HEENT Problems: No - RENAL Hx Chronic Kidney Disease: Yes - ENDOCRINE/METABOLIC Hx Endocrine Disorders: No - HEMATOLOGICAL/ONCOLOGICAL Hx Human Immunodeficiency Virus (HIV): Yes - INTEGUMENTARY Hx Dermatological Problems: No Other/Comment: multiple skin ulcers, bilat back, sacro-coccyx, healing sores both lower exts and buttocks sacral stage 4 ulcer [id number],. left hip unstageable,,stage 3 bilat back,right side 6cm x 2 cm. right mid back skin ulcer stage 2, 6cm x 3 cm,, multiple hip areas in healing stage dsd on back and sacral ulcers, - MUSCULOSKELETAL/RHEUMATOLOGICAL Hx Falls: No - GASTROINTESTINAL Hx Gastrointestinal Disorders: Yes Hx Gastroesophageal Reflux: Yes Hx Hemorrhoids: Yes Other/Comment: PEG tube in place - GENITOURINARY/GYNECOLOGICAL Hx Genitourinary Disorders: Yes Hx Prostate Cancer: Yes (2010 HAD RADIATION WITH SEED IMPLANT; NO SURGERY) Other/Comment: ESRD ON HD pt is anuric - PSYCHIATRIC Hx Substance Use: No - ANESTHESIA Hx Anesthesia: Yes Hx Anesthesia Reactions: No Hx Malignant Hyperthermia: No Meds Allergies/Adverse Reactions: Allergies Allergy/AdvReac Type Severity Reaction Status Date / Time No Known Allergies Allergy Verified 01/17/17 12:31 Physical Exam - Constitutional Appears: Well - Head Exam Head Exam: ATRAUMATIC, NORMAL INSPECTION, NORMOCEPHALIC - Eye Exam Eye Exam: EOMI, Normal appearance, PERRL Pupil Exam: NORMAL ACCOMODATION, PERRL - ENT Exam ENT Exam: Mucous Membranes Moist, Normal Exam - Neck Exam Neck exam: Positive for: Normal Inspection - Respiratory Exam Respiratory Exam: Decreased Breath Sounds - Cardiovascular Exam Cardiovascular Exam: REGULAR RHYTHM, +S1, +S2 - GI/Abdominal Exam GI & Abdominal Exam: Diminished Bowel Sounds, Soft - Rectal Exam Rectal Exam: Deferred Results - Vital Signs Recent Vital Signs: Last Vital Signs Temp 98.0 F 01/17/17 12:30 Pulse 85 01/17/17 17:40 Resp 20 01/17/17 17:40 BP 185/51 H 01/17/17 17:40 Pulse Ox 97 01/17/17 17:01 - Labs Result Diagrams: 01/17/17 13:58 01/17/17 13:58 Labs: Laboratory Results - last 24 hr 01/17/17 01/17/17 01/17/17 13:58 13:58 13:58 WBC 6.4 RBC 3.07 L Hgb 8.5 L Hct 26.4 L MCV 85.9 D MCH 27.7 MCHC 32.3 L RDW 16.4 H Plt Count 333 MPV 7.6 Neut % (Auto) 43.4 L Lymph % (Auto) 40.0 [place] % (Auto) 10.7 H Eos % (Auto) 5.1 H Baso % (Auto) 0.8 Neut # 2.8 Lymph # 2.6 [place] # 0.7 Eos # 0.3 Baso # 0.1 PT 13.2 H INR 1.2 APTT 33 Sodium 134 Potassium 4.6 Chloride 98 Carbon Dioxide 27 Anion Gap 14 BUN 52 H Creatinine 3.9 H Est GFR ( Amer) 19 Est GFR (Non-Af Amer) 15 Random Glucose 82 Calcium 9.7 Total Bilirubin 0.5 AST 44 ALT 33 Alkaline Phosphatase 130 H Total Protein 6.8 Albumin 2.7 L D Globulin 4.2 H Albumin/Globulin Ratio 0.6 L
[2017-01-17] MEDS ORDERED: Oxycodone/Acetaminophen 5/325 mg Tab PO PRN (21:57)
[2017-01-17] MEDS ORDERED: Acetaminophen 650mg/20.3ml solution UD NG PRN (21:57)
[2017-01-18] MEDS: Piperacillin/Tazobact 2.25 gm Inj IV SCH ×2 (00:40→06:02)
[2017-01-18] MEDS ORDERED: Albuterol-Ipratrop 3 mg / 0.5 (3 ml) UD IH SCH (02:00)
[2017-01-18] MEDS: Albuterol-Ipratrop 3 mg / 0.5 (3 ml) UD IH SCH ×3 (07:52→20:01)
--- NOTE | 2017-01-18 08:31 | CP.PCM.PN ---
Subjective - Date & Time of Evaluation Date of Evaluation: 01/18/17 Time of Evaluation: 08:29 - Subjective Subjective: PGY-[address] Mckeon's service: Pt seen and examined at bedside. Pt is NPO for OR this morning for dialysis catheter placement. Pt had L femoral HD catheter but it has malfunctioned. He denies any pain at this time. Objective - Vital Signs/Intake and Output Vital Signs (last 24 hours): Temp Pulse Resp BP Pulse Ox 97.5 F L 81 20 127/76 97 01/18/17 07:10 01/18/17 07:10 01/18/17 07:10 01/18/17 07:10 01/18/17 07:10 Intake and Output: 01/18/17 01/18/17 06:59 18:59 Intake Total 100 Balance 100 - Medications Medications: Current Medications Acetaminophen (Tylenol 650mg/20.3ml Solution Ud) 650 mg NG Q6 PRN PRN Reason: Fever >100.4 F Albuterol/Ipratropium (Duoneb 3 Mg/0.5 Mg (3 Ml) Ud) 3 ml IH RQ6 [facility] Last Admin: 01/18/17 07:52 Dose: Not Given Amlodipine Besylate (Norvasc) 10 mg PO DAILY [facility] Apixaban (Eliquis) 2.5 mg PO BID [facility] Ascorbic Acid (Vitamin C 500 Mg Tab) 500 mg PO BID [facility] Clonidine HCl (Catapres Tts1 0.1 Mg/24 Hr) 1 patch TD QWK [facility] Epoetin Chuck (Procrit) 10,000 unit IV MWF [facility] Famotidine (Pepcid) 20 mg PO DAILY [facility] Fosamprenavir Calcium (Lexiva) 700 mg PO BID [facility] Home Med (Protein Supplement [Prosource]) 275 gm PO BID [facility] Home Med (Vancomycin 750 Mg/D5w 150 Ml [Vancocin]) 750 mg IV MWF [facility] Levetiracetam (Keppra) 500 mg PO Q12H [facility] Last Admin: 01/17/17 23:07 Dose: 500 mg Oxycodone/Acetaminophen (Percocet 5/325 Mg Tab) 1 tab PO Q6H PRN PRN Reason: Pain, moderate (4-7) Stop: 01/20/17 21:58 Paricalcitol (Zemplar) 2 mcg IV MWF [facility] Piperacillin Sod/Tazobactam Sod (Zosyn) 2.25 gm IV Q6 [facility] Last Admin: 01/18/17 06:02 Dose: 2.25 gm Raltegravir (Isentress Chewable) 400 mg PO BID [facility] Ritonavir (Norvir) 100 mg PO DAILY [facility] Zinc Sulfate (Zinc Sulfate 220 Mg Cap) 220 mg PO DAILY [facility] - Labs Labs: 01/17/17 13:58 01/17/17 13:58 PT 13.2 SECONDS (9.7-12.2) H 01/17/17 13:58 INR 1.2 01/17/17 13:58 APTT 33 SECONDS (21-34) 01/17/17 13:58 - Constitutional Appears: Non-toxic, Older Than Stated Age, Chronically Ill - Head Exam Head Exam: ATRAUMATIC, NORMOCEPHALIC - Eye Exam Eye Exam: EOMI, Normal appearance. absent: Scleral icterus - ENT Exam ENT Exam: Mucous Membranes Moist, Normal Exam - Neck Exam Additional comments: Healed trach scar noted - Respiratory Exam Respiratory Exam: Clear to Ausculation Bilateral, NORMAL BREATHING PATTERN. absent: Rales, Rhonchi, Wheezes - Cardiovascular Exam Cardiovascular Exam: REGULAR RHYTHM, +S1, +S2 - GI/Abdominal Exam GI & Abdominal Exam: Soft, Normal Bowel Sounds Additional comments: PEG tube - Exam Additional comments: Left groin catheter noted - Extremities Exam Additional comments: Bilateral upper extremity swollen (left worse than right) - Back Exam Back Exam: absent: CVA tenderness (L), CVA tenderness (R) - Neurological Exam Neurological Exam: Alert, Awake - Psychiatric Exam Psychiatric exam: Normal Mood - Skin Skin Exam: Dry, Intact Assessment and Plan - Assessment and Plan (Free Text) Plan: ESRD on dialysis, malfunctioned catheter Nephro: Dr. Haines, help appreciated - Pt had left femoral HD catheter that has malfunctioned - pt anuric Dr. Wagner, General surgery - consulted for catheter placement - OR today for new catheter insertion, HD to follow Procrit 10,000units MWF IV Vancomycin 750mg IV MWF Paricalcitol 2mcg IV MWF Zinc sulfate 220 mg PO Daily Vitamin C 500mg PO BID Zosyn 2.25gm IV Q6H HIV Dr. Hernadez, ID, help appreciated -f/u Viral load Lexiva 700mg PO BID Raltegravir 400mg PO BID Ritonavir 100mg PO Daily Hx of Hepatitis C Dr. 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 Brian Mckeon
[2017-01-18] MEDS ORDERED: PROTEIN SUPPLEMENT 275 GM PO SCH ×2 (10:00→18:00)
[2017-01-18] MEDS ORDERED: Raltegravir 100 mg Chewable Tab PO SCH (10:00)
--- NOTE | 2017-01-18 11:29 | CP.PCM.CON ---
History of Present Illness - History of Present Illness History of Present Illness: pt is seen and examined, full consult is dictated #[id number] 1. esrd 2. non functioning perma cath f/u surgery to change perma cath ? guide wire for hd after cather change Past Patient History - Infectious Disease Hx of Infectious Diseases: None - Tetanus Immunizations Tetanus Immunization: Unknown - Past Medical History & Family History Past Medical History?: Yes - Past Social History Smoking Status: Former Smoker - CARDIAC Hx Congestive Heart Failure: Yes Hx Hypertension: Yes Hx Peripheral Edema: Yes - PULMONARY Hx Respiratory Disorders: No Other/Comment: tracheostomy - NEUROLOGICAL Hx Neurological Disorder: No - HEENT Hx HEENT Problems: No - RENAL Hx Chronic Kidney Disease: Yes Hx Dialysis: Yes Type of Dialysis Access: L femoral artery Date of Last Dialysis Treatment: 01/17/17 Hx Renal Failure: Yes - ENDOCRINE/METABOLIC Hx Endocrine Disorders: No - HEMATOLOGICAL/ONCOLOGICAL Hx Human Immunodeficiency Virus (HIV): Yes - INTEGUMENTARY Hx Dermatological Problems: No Other/Comment: multiple skin ulcers, bilat back, sacro-coccyx, healing sores both lower exts and buttocks sacral stage 4 ulcer [id number],. left hip unstageable,,stage 3 bilat back,right side 6cm x 2 cm. right mid back skin ulcer stage 2, 6cm x 3 cm,, multiple hip areas in healing stage dsd on back and sacral ulcers, - MUSCULOSKELETAL/RHEUMATOLOGICAL Hx Falls: No - GASTROINTESTINAL Hx Gastrointestinal Disorders: Yes Hx Gastroesophageal Reflux: Yes Hx Hemorrhoids: Yes Hx Ulcer: Yes Other/Comment: PEG tube in place - GENITOURINARY/GYNECOLOGICAL Hx Genitourinary Disorders: Yes Hx Prostate Cancer: Yes (2009 HAD RADIATION WITH SEED IMPLANT; NO SURGERY) Other/Comment: ESRD ON HD pt is anuric - PSYCHIATRIC Hx Substance Use: No - ANESTHESIA Hx Anesthesia: Yes Hx Anesthesia Reactions: No Hx Malignant Hyperthermia: No Meds Allergies/Adverse Reactions: Allergies Allergy/AdvReac Type Severity Reaction Status Date / Time No Known Allergies Allergy Verified 01/17/17 12:31 - Medications Medications: Current Medications Acetaminophen (Tylenol 650mg/20.3ml Solution Ud) 650 mg NG Q6 PRN PRN Reason: Fever >100.4 F Albuterol/Ipratropium (Duoneb 3 Mg/0.5 Mg (3 Ml) Ud) 3 ml IH RQ6 [facility] Last Admin: 01/18/17 07:52 Dose: Not Given Amlodipine Besylate (Norvasc) 10 mg PO DAILY [facility] Apixaban (Eliquis) 2.5 mg PO BID [facility] Ascorbic Acid (Vitamin C 500 Mg Tab) 500 mg PO BID [facility] Clonidine HCl (Catapres Tts1 0.1 Mg/24 Hr) 1 patch TD QWK [facility] Epoetin Chuck (Procrit) 10,000 unit IV MWF [facility] Famotidine (Pepcid) 20 mg PO DAILY [facility] Fosamprenavir Calcium (Lexiva) 700 mg PO BID [facility] Home Med (Protein Supplement [Prosource]) 275 gm PO BID [facility] Home Med (Vancomycin 750 Mg/D5w 150 Ml [Vancocin]) 750 mg IV MWF [facility] Levetiracetam (Keppra) 500 mg PO Q12H [facility] Last Admin: 01/17/17 23:07 Dose: 500 mg Oxycodone/Acetaminophen (Percocet 5/325 Mg Tab) 1 tab PO Q6H PRN PRN Reason: Pain, moderate (4-7) Stop: 01/20/17 21:58 Paricalcitol (Zemplar) 2 mcg IV MWF [facility] Piperacillin Sod/Tazobactam Sod (Zosyn) 2.25 gm IV Q6 [facility] Last Admin: 01/18/17 06:02 Dose: 2.25 gm Raltegravir (Isentress Chewable) 400 mg PO BID [facility] Ritonavir (Norvir) 100 mg PO DAILY [facility] Zinc Sulfate (Zinc Sulfate 220 Mg Cap) 220 mg PO DAILY [facility] Results - Vital Signs Recent Vital Signs: Last Vital Signs Temp 97.5 F L 01/18/17 07:10 Pulse 81 01/18/17 07:10 Resp 20 01/18/17 07:10 BP 127/76 01/18/17 07:10 Pulse Ox 97 01/18/17 07:10 - Labs Result Diagrams: 01/17/17 13:58 01/18/17 13:21 Labs: Laboratory Results - last 24 hr 01/17/17 01/17/17 01/17/17 13:58 13:58 13:58 WBC 6.4 RBC 3.07 L Hgb 8.5 L Hct 26.4 L MCV 85.9 D MCH 27.7 MCHC 32.3 L RDW 16.4 H Plt Count 333 MPV 7.6 Neut % (Auto) 43.4 L Lymph % (Auto) 40.0 [place] % (Auto) 10.7 H Eos % (Auto) 5.1 H Baso % (Auto) 0.8 Neut # 2.8 Lymph # 2.6 [place] # 0.7 Eos # 0.3 Baso # 0.1 PT 13.2 H INR 1.2 APTT 33 Sodium 134 Potassium 4.6 Chloride 98 Carbon Dioxide 27 Anion Gap 14 BUN 52 H Creatinine 3.9 H Est GFR ( Amer) 19 Est GFR (Non-Af Amer) 15 Random Glucose 82 Calcium 9.7 Total Bilirubin 0.5 AST 44 ALT 33 Alkaline Phosphatase 130 H Total Protein 6.8 Albumin 2.7 L D Globulin 4.2 H Albumin/Globulin Ratio 0.6 L
--- NOTE | 2017-01-18 12:09 | CP.PCM.CON ---
History of Present Illness - History of Present Illness History of Present Illness: 71 M w PMH of ESRD on HD MWF, HIV, hep c s/p intracranial hemmorhage / coma 2015 is sent from senior care when HD catheter stopped working. Pt has dementia and is poor historian. Denies F/C/N/V/D/CP/SOB. Pt currently has L femoral HD catheter. With Bedside US, CARLOS Mcknight femoral veins are un- visualized. Review of Systems - Review of Systems Systems not reviewed;Unavailable: Altered Mental Status - Constitutional Constitutional: As Per HPI - EENT Eyes: absent: As Per HPI, Blind Spots, Blurred Vision, Change in Vision, Decreased Night Vision, Diplopia, Discharge, Dry Eye, Exophthalmos, Floaters, Irritation, Itchy Eyes, Loss of Peripheral Vision, Pain, Photophobia, Requires Corrective Lenses, Sees Flashes, Spots in Vision, Tunnel Vision, Other Visual Disturbances, Loss of Vision, Other Ears: absent: As Per HPI, Decreased Hearing, Ear Discharge, Ear Pain, Tinnitus, Abnormal Hearing, Disequilibrium, Dizziness, Other Nose/Mouth/Throat: absent: As Per HPI, Epistaxis, Nasal Congestion, Nasal Discharge, Nasal Obstruction, Nasal Trauma, Nose Pain, Post Nasal Drip, Sinus Pain, Sinus Pressure, Bleeding Gums, Change in Voice, Dental Pain, Dry Mouth, Dysphagia, Halitosis, Hoarsness, Lip Swelling, Mouth Lesions, Mouth Pain, Odynophagia, Sore Throat, Throat Swelling, Tongue Swelling, Facial Pain, Neck Pain, Neck Mass, Other - Cardiovascular Cardiovascular: absent: As Per HPI, Acrocyanosis, Chest Pain, Chest Pain at Rest , Chest Pain with Activity, Claudication, Diaphoresis, Dyspnea, Dyspnea on Exertion, Edema, Irregular Heart Rhythm, Pain Radiating to Arm/Neck/Jaw, Leg Edema, Leg Ulcers, Lightheadedness, Orthopnea, Palpitations, Paroxysmal Nocturnal Dyspnea, Pedal Edema, Radiating Pain, Rapid Heart Rate, Slow Heart Rate, Syncope, Other - Respiratory Respiratory: absent: As Per HPI, Cough, Dyspnea, Hemoptysis, Dyspnea on Exertion , Wheezing, Snoring, Stridor, Pain on Inspiration, Chest Congestion, Excessive Mucous Production, Change in Mucous Color, Pain with Coughing, Other - Gastrointestinal Gastrointestinal: absent: As Per HPI, Abdominal Pain, Belching, Bloating, Change in Bowel Habits, Change in Stool Character, Coffee Ground Emesis, Constipation, Cramping, Diarrhea, Dyspepsia, Dysphagia, Early Satiety, Excessive Flatus, Fecal Incontinence, Heartburn, Hematemesis, Hematochezia, Loose Stools, Melena, Nausea, Odynophagia, Temesmus, Vomiting, Other - Genitourinary Genitourinary: absent: As Per HPI, Change in Urinary Stream, Difficulty Urinating, Dysuria, Flank Pain, Hematuria, Pyuria, Nocturia, Urinary Incontinence, Urinary Frequency, Urinary Hesitance, Urinary Urgency, Voiding Freq/Small Amts, Freq UTI, Hx Renal/Bladder Calculi, Hx /Renal Surgery, Bladder Distension, Other - Musculoskeletal Musculoskeletal: As Per HPI - Integumentary Integumentary: As Per HPI - Neurological Neurological: As Per HPI - Psychiatric Psychiatric: absent: As Per HPI, Abnormal Sleep Pattern, Anhedonia, Anxiety, Auditory Hallucinations, Behavioral Changes, Change in Appetite, Change in Libido, Confusion, Depression, Difficulty Concentrating, Hallucinations, Homicidal Ideation, Hopelessness, Irritability, Memory Loss, Mood Swings, Panic Attacks, Paranoia, Suicidal Ideation, Visual Hallucinations, Tactile Hallucinations, Other - Endocrine Endocrine: absent: As Per HPI, Change in Body Appearance, Change in Libido, Cold Intolorance, Deepening of Voice, Excessive Sweating, Fatigue, Flushing, Heat Intolorance, Increase in Ring/Shoe/Hat Size, Palpitations, Polydipsia, Polyphagia, Polyuria, Other - Hematologic/Lymphatic Hematologic: absent: As Per HPI, Easy Bleeding, Easy Bruising, Lymphadenopathy, Other Past Patient History - Infectious Disease Hx of Infectious Diseases: None - Tetanus Immunizations Tetanus Immunization: Unknown - Past Medical History & Family History Past Medical History?: Yes - Past Social History Smoking Status: Former Smoker - CARDIAC Hx Congestive Heart Failure: Yes Hx Hypertension: Yes Hx Peripheral Edema: Yes - PULMONARY Hx Respiratory Disorders: No Other/Comment: tracheostomy - NEUROLOGICAL Hx Neurological Disorder: No - HEENT Hx HEENT Problems: No - RENAL Hx Chronic Kidney Disease: Yes Hx Dialysis: Yes Type of Dialysis Access: L femoral artery Date of Last Dialysis Treatment: 01/17/17 Hx Renal Failure: Yes - ENDOCRINE/METABOLIC Hx Endocrine Disorders: No - HEMATOLOGICAL/ONCOLOGICAL Hx Human Immunodeficiency Virus (HIV): Yes - INTEGUMENTARY Hx Dermatological Problems: No Other/Comment: multiple skin ulcers, bilat back, sacro-coccyx, healing sores both lower exts and buttocks sacral stage 4 ulcer [id number],. left hip unstageable,,stage 3 bilat back,right side 6cm x 2 cm. right mid back skin ulcer stage 2, 6cm x 3 cm,, multiple hip areas in healing stage dsd on back and sacral ulcers, - MUSCULOSKELETAL/RHEUMATOLOGICAL Hx Falls: No - GASTROINTESTINAL Hx Gastrointestinal Disorders: Yes Hx Gastroesophageal Reflux: Yes Hx Hemorrhoids: Yes Hx Ulcer: Yes Other/Comment: PEG tube in place - GENITOURINARY/GYNECOLOGICAL Hx Genitourinary Disorders: Yes Hx Prostate Cancer: Yes (2010 HAD RADIATION WITH SEED IMPLANT; NO SURGERY) Other/Comment: ESRD ON HD pt is anuric - PSYCHIATRIC Hx Substance Use: No - ANESTHESIA Hx Anesthesia: Yes Hx Anesthesia Reactions: No Hx Malignant Hyperthermia: No Meds Allergies/Adverse Reactions: Allergies Allergy/AdvReac Type Severity Reaction Status Date / Time No Known Allergies Allergy Verified 01/17/17 12:31 - Medications Medications: Current Medications Acetaminophen (Tylenol 650mg/20.3ml Solution Ud) 650 mg NG Q6 PRN PRN Reason: Fever >100.4 F Albuterol/Ipratropium (Duoneb 3 Mg/0.5 Mg (3 Ml) Ud) 3 ml IH RQ6 [facility] Last Admin: 01/18/17 07:52 Dose: Not Given Amlodipine Besylate (Norvasc) 10 mg PO DAILY [facility] Last Admin: 01/18/17 11:21 Dose: 10 mg Apixaban (Eliquis) 2.5 mg PO BID [facility] Last Admin: 01/18/17 11:21 Dose: 2.5 mg Ascorbic Acid (Vitamin C 500 Mg Tab) 500 mg PO BID [facility] Last Admin: 01/18/17 11:21 Dose: 500 mg Clonidine HCl (Catapres Tts1 0.1 Mg/24 Hr) 1 patch TD QWK [facility] Epoetin Chuck (Procrit) 10,000 unit IV MWF [facility] Famotidine (Pepcid) 20 mg PO DAILY [facility] Last Admin: 01/18/17 11:22 Dose: 20 mg Fosamprenavir Calcium (Lexiva) 700 mg PO BID [facility] Last Admin: 01/18/17 11:21 Dose: 700 mg Home Med (Protein Supplement [Prosource]) 275 gm PO BID [facility] Last Admin: 01/18/17 11:38 Dose: Not Given Home Med (Vancomycin 750 Mg/D5w 150 Ml [Vancocin]) 750 mg IV MWF [facility] Levetiracetam (Keppra) 500 mg PO Q12H [facility] Last Admin: 01/18/17 11:21 Dose: 500 mg Oxycodone/Acetaminophen (Percocet 5/325 Mg Tab) 1 tab PO Q6H PRN PRN Reason: Pain, moderate (4-7) Stop: 01/20/17 21:58 Paricalcitol (Zemplar) 2 mcg IV MWF [facility] Piperacillin Sod/Tazobactam Sod (Zosyn) 2.25 gm IV Q6 [facility] Last Admin: 01/18/17 06:02 Dose: 2.25 gm Raltegravir (Isentress Chewable) 400 mg PO BID [facility] Last Admin: 01/18/17 11:22 Dose: 400 mg Ritonavir (Norvir) 100 mg PO DAILY [facility] Last Admin: 01/18/17 11:21 Dose: 100 mg Zinc Sulfate (Zinc Sulfate 220 Mg Cap) 220 mg PO DAILY [facility] Last Admin: 01/18/17 11:22 Dose: 220 mg Physical Exam - Constitutional Appears: Confused, Cachectic, Chronically Ill - Head Exam Head Exam: NORMOCEPHALIC - Eye Exam Eye Exam: EOMI, PERRL. absent: Scleral icterus - ENT Exam ENT Exam: Mucous Membranes Dry, Normal External Ear Exam - Neck Exam Neck exam: Negative for: Lymphadenopathy - Respiratory Exam Respiratory Exam: Decreased Breath Sounds, Rhonchi - Cardiovascular Exam Cardiovascular Exam: REGULAR RHYTHM, +S1, +S2 - GI/Abdominal Exam GI & Abdominal Exam: Diminished Bowel Sounds, Soft. absent: Tenderness - Rectal Exam Rectal Exam: Deferred - Exam Exam: NORMAL INSPECTION - Extremities Exam Extremities exam: Positive for: pedal pulses present. Negative for: calf tenderness, pedal edema, tenderness - Back Exam Back exam: absent: CVA tenderness (L), CVA tenderness (R) - Neurological Exam Neurological exam: Alert, Altered, CN II-XII Intact - Psychiatric Exam Psychiatric exam: Depressed - Skin Skin Exam: Dry, Intact Results - Vital Signs Recent Vital Signs: Last Vital Signs Temp 97.5 F L 01/18/17 07:10 Pulse 81 01/18/17 07:10 Resp 20 01/18/17 07:10 BP 127/76 01/18/17 07:10 Pulse Ox 97 01/18/17 07:10 - Labs Result Diagrams: 01/17/17 13:58 01/17/17 13:58 Labs: Laboratory Results - last 24 hr 01/17/17 01/17/17 01/17/17 13:58 13:58 13:58 WBC 6.4 RBC 3.07 L Hgb 8.5 L Hct 26.4 L MCV 85.9 D MCH 27.7 MCHC 32.3 L RDW 16.4 H Plt Count 333 MPV 7.6 Neut % (Auto) 43.4 L Lymph % (Auto) 40.0 [place] % (Auto) 10.7 H Eos % (Auto) 5.1 H Baso % (Auto) 0.8 Neut # 2.8 Lymph # 2.6 [place] # 0.7 Eos # 0.3 Baso # 0.1 PT 13.2 H INR 1.2 APTT 33 Sodium 134 Potassium 4.6 Chloride 98 Carbon Dioxide 27 Anion Gap 14 BUN 52 H Creatinine 3.9 H Est GFR ( Amer) 19 Est GFR (Non-Af Amer) 15 Random Glucose 82 Calcium 9.7 Total Bilirubin 0.5 AST 44 ALT 33 Alkaline Phosphatase 130 H Total Protein 6.8 Albumin 2.7 L D Globulin 4.2 H Albumin/Globulin Ratio 0.6 L Assessment & Plan (1) Admission for dialysis and dialysis catheter care Status: Acute (2) Anemia Status: Acute (3) CHF (congestive heart failure) Status: Acute (4) Decubitus skin ulcer Status: Acute (5) ESRD (end stage renal disease) Status: Acute (6) HIV (human immunodeficiency virus infection) Status: Acute (7) HTN (hypertension) Status: Acute (8) Hepatitis C antibody test positive Status: Acute - Assessment and Plan (Free Text) Assessment: will reorder HAART rx
[2017-01-18] MEDS ORDERED: Lidocaine 1% Inj (20ml) ONE ×2 (12:50→13:29)
[2017-01-18] MEDS ORDERED: HEPARIN-NS 5,000 UNITS/500 ML 5,000 UNIT/500 ML BAG IV ONE (13:29)
[2017-01-18 13:35] LABS: POTASSIUM 5.3 mmol/L (3.6-5.2)
[2017-01-18 13:37] LABS: CALCIUM 9.4 mg/dl (8.6-10.4)
[2017-01-18] MEDS ORDERED: Piperacill/Tazo 2.25gm in Dex 2.25 GM/50 ML BAG IVPB SCH (14:00)
[2017-01-18] MEDS ORDERED: Sodium Chloride 0.9% 500 ML IV ONE (14:15)
[2017-01-18] MEDS ORDERED: Midazolam 2 MG/2 ML VIAL ONE (14:23)
--- NOTE | 2017-01-18 15:26 | PCM.SURG1 ---
Surgeon's Initial Post Op Note - Surgeon's Notes Surgeon: Bernard Ring Spinner: Daylin PGY1 Type of Anesthesia: IV Sedation Pre-Operative Diagnosis: ESRD on HD Operative Findings: see operative report Post-Operative Diagnosis: ESRD on HD Operation Performed: Insertion of R femoral Permacath and removal of L femoral dialysis catheter Specimen/Specimens Removed: N/A Estimated Blood Loss: EBL {In ML}: 15 Blood Products Given: N/A Drains Used: No Drains Post-Op Condition: Good Date of Surgery/Procedure: 01/18/17 Time of Surgery/Procedure: 15:
--- NOTE | 2017-01-18 16:39 | RAD ---
PROCEDURE: Fluoroscopic guidance during hemodialysis catheter insertion HISTORY: RENAL FAILURE COMPARISON: No prior similar study available for comparison. TECHNIQUE: Fluoroscopic guidance was provided in the OR during hemodialysis catheter insertion FINDINGS: Few images were obtained and submitted. Fluoroscopic guidance was provided during insertion of femoral hemodialysis catheter. There are multiple seeds at the pelvis suggestive of prostate treatment seeds IMPRESSION: Fluoroscopic guidance was provided during insertion of hemodialysis catheter in the femoral vein. Please refer to the procedure report for more details.
--- NOTE | 2017-01-18 16:55 | RAD ---
HISTORY: L groin HD cath placement COMPARISON: Comparison is made to 03/27/2012 FINDINGS: BOWEL: Normal. No obstruction. No free air. Gastrostomy tube is seen in place. BONES: Normal. OTHER FINDINGS: Insertion of left femoral hemodialysis catheter which is seen at appropriate position. IMPRESSION: Left femoral hemodialysis catheter seen in place. Gastrostomy tube.
[2017-01-18] MEDS ORDERED: Paricalcitol 2 mcg/ml Inj IV SCH (19:00)
[2017-01-18] MEDS ORDERED: Epoetin Alfa 10,000 unit/ml Dialysis IV SCH ×2 (19:00→19:30)
--- NOTE | 2017-01-18 20:34 | CP.PCM.PN ---
Subjective - Date & Time of Evaluation Date of Evaluation: 01/18/17 Time of Evaluation: 10:40 - Subjective Subjective: clinically same Objective - Vital Signs/Intake and Output Vital Signs (last 24 hours): Temp Pulse Resp BP Pulse Ox 97.1 F L 75 20 111/80 97 01/18/17 18:40 01/18/17 18:40 01/18/17 18:40 01/18/17 19:40 01/18/17 18:40 - Medications Medications: Current Medications Acetaminophen (Tylenol 650mg/20.3ml Solution Ud) 650 mg NG Q6 PRN PRN Reason: Fever >100.4 F Albuterol/Ipratropium (Duoneb 3 Mg/0.5 Mg (3 Ml) Ud) 3 ml IH RQ6 [facility] Last Admin: 01/18/17 20:01 Dose: Not Given Amlodipine Besylate (Norvasc) 10 mg PO DAILY [facility] Last Admin: 01/18/17 11:21 Dose: 10 mg Apixaban (Eliquis) 2.5 mg PO BID [facility] Last Admin: 01/18/17 11:21 Dose: 2.5 mg Ascorbic Acid (Vitamin C 500 Mg Tab) 500 mg PO BID [facility] Last Admin: 01/18/17 11:21 Dose: 500 mg Clonidine HCl (Catapres Tts1 0.1 Mg/24 Hr) 1 patch TD QWK [facility] Epoetin Chuck (Procrit) 10,000 unit IV TTS [facility] Last Admin: 01/18/17 19:50 Dose: 10,000 unit Famotidine (Pepcid) 20 mg PO DAILY [facility] Last Admin: 01/18/17 11:22 Dose: 20 mg Fosamprenavir Calcium (Lexiva) 700 mg PO BID [facility] Last Admin: 01/18/17 11:21 Dose: 700 mg Heparin Sodium (Porcine) (Heparin) 5,000 units IVP TTS [facility] Last Admin: 01/18/17 19:52 Dose: 5,000 units Vancomycin HCl (Vancocin 750mg/D5w 150 Ml) 150 mls @ 100 mls/hr IV MWF [facility] Stop: 01/24/17 09:01 Piperacillin Sod/Tazobactam Sod (Zosyn 2.25 Gm Iv Premix) 2.25 gm in 50 mls @ 100 mls/hr IVPB Q6H [facility] Stop: 02/08/17 02:29 Levetiracetam (Keppra) 500 mg PO Q12H [facility] Last Admin: 01/18/17 11:21 Dose: 500 mg Oxycodone/Acetaminophen (Percocet 5/325 Mg Tab) 1 tab PO Q6H PRN PRN Reason: Pain, moderate (4-7) Stop: 01/20/17 21:58 Paricalcitol (Zemplar) 2 mcg IV TTS [facility] Last Admin: 01/18/17 19:51 Dose: 2 mcg Raltegravir (Isentress) 400 mg PO BID [facility] Ritonavir (Norvir) 100 mg PO DAILY [facility] Last Admin: 01/18/17 11:21 Dose: 100 mg Zinc Sulfate (Zinc Sulfate 220 Mg Cap) 220 mg PO DAILY [facility] Last Admin: 01/18/17 11:22 Dose: 220 mg - Labs Labs: 01/17/17 13:58 01/18/17 13:21 PT 13.2 SECONDS (9.7-12.2) H 01/17/17 13:58 INR 1.2 01/17/17 13:58 APTT 33 SECONDS (21-34) 01/17/17 13:58 - Constitutional Appears: Well - Head Exam Head Exam: ATRAUMATIC, NORMAL INSPECTION, NORMOCEPHALIC - Eye Exam Eye Exam: EOMI, Normal appearance, PERRL Pupil Exam: NORMAL ACCOMODATION, PERRL - ENT Exam ENT Exam: Mucous Membranes Moist, Normal Exam - Neck Exam Neck Exam: Full ROM, Normal Inspection. absent: Lymphadenopathy - Respiratory Exam Respiratory Exam: Decreased Breath Sounds - Cardiovascular Exam Cardiovascular Exam: REGULAR RHYTHM, +S1, +S2 - GI/Abdominal Exam GI & Abdominal Exam: Soft, Diminished Bowel Sounds - Rectal Exam Rectal Exam: Deferred
[2017-01-18] MEDS: Piperacill/Tazo 2.25gm in Dex 2.25 GM/50 ML BAG IVPB SCH (22:50)
--- NOTE | 2017-01-18 23:51 | OP ---
PROCEDURE DATE: 01/18/2017 PREOPERATIVE DIAGNOSIS: Renal failure. POSTOPERATIVE DIAGNOSIS: Renal failure. PROCEDURE: Removal of left femoral dialysis catheter and placement of right femoral dialysis catheter using ultrasound guidance. DESCRIPTION OF PROCEDURE: The patient was given local anesthesia. Using ultrasound guidance, a puncture was made in the right common femoral vein and the catheter inverted and wired centrally. This was the placed up to the right side into the level of vena cava. It was brought out through a sheath and tunneled on the right leg wall and sutured to the skin. Blood loss of the procedure was about 15 mL. Subsequently, we removed the left femoral catheter which was retracted back into the iliac vein and removed it. At this time, we had excellent flow through the right side and this will be utilized for dialysis. Vivek Wagner Jr., MD
[2017-01-19] MEDS: Albuterol-Ipratrop 3 mg / 0.5 (3 ml) UD IH SCH ×3 (02:05→13:20)
[2017-01-19] MEDS: Piperacill/Tazo 2.25gm in Dex 2.25 GM/50 ML BAG IVPB SCH ×3 (02:12→14:33)
[2017-01-19 08:50] VITALS: O2SAT 100
[2017-01-19] MEDS ORDERED: Paricalcitol 2 mcg/ml Inj IV SCH (09:00)
[2017-01-19] MEDS ORDERED: VANCOMYCIN IV SCH (09:00)
[2017-01-19] MEDS ORDERED: Epoetin Alfa 10,000 unit/ml Dialysis IV SCH (09:00)
[2017-01-19] MEDS ORDERED: DEXTROSE IV SCH (09:00)
[2017-01-19] MEDS ORDERED: Vancomycin 750mg/D5W 150 ml 150 ML IV SCH (09:00)
--- NOTE | 2017-01-19 09:25 | CON ---
RENAL CONSULTATION DATE: LOCATION: Patient is located on room 651, bed A. REQUESTED BY: Dr. Chayito Mckeon. REASON FOR RENAL CONSULTATION: End-stage renal disease for continuation of hemodialysis, non-functioning Perma-Cath. HISTORY OF PRESENT ILLNESS: Mr. Fontenot is a 71 years old elderly male with history of hypertension, polycystic kidney and liver disease, end-stage renal disease, chronic hepatitis C, prostate CA, status post seed implants and end-stage renal disease, on hemodialysis 3 times a week, status post fall about more than a year ago with tricompartmental intracranial bleed. Subsequently, patient was intubated and transferred to long-term care facility from there. Patient was weaned from the ventilator. [facility] Patient is there for more than 6 months and multiple admissions to the hospitals with pneumonia, UTI, and hematuria. Now, patient was presented to the dialysis unit yesterday and unable to give the dialysis due to non-functioning of Perma-Cath. Not able to get any blood flow even after instillation of the TPA. Patient was subsequently sent to the hospital as per the patient's family request to [facility] for further management of the catheter problem. Patient was evaluated by Vascular surgeon, Dr. Wagner and scheduled for Perma-Cath replacement today. Patient denies any headache, dizziness. Denies any chest pain, palpitations. Denies any fever, cough. Patient has complaints of back pain due to decubitus ulcer, unstageable. Patient is not in acute distress. Patient also has swelling of the both upper extremities. PAST MEDICAL HISTORY: Significant for hypertension, chronic hepatitis C, prostate CA, polycystic kidney and liver disease, end-stage renal disease, status post fall, tricompartmental bleed, internal hemorrhoids, UTI, pneumonia, status post thoracentesis. PAST SURGICAL HISTORY: Left upper extremity AV fistula clotted, multiple catheter placements and also PEG tube, and status post tracheostomy and closure. ALLERGIES: NO KNOWN DRUG ALLERGIES. SOCIAL HISTORY: No smoking. No alcohol or drugs. [facility]. FAMILY HISTORY: Not significant. He has a very supportive and daughter. CURRENT MEDICATIONS: Include Clonidine 0.1 mg patch q. weekly, DuoNeb inhaler, Eliquis 2.5 mg p.o. b.i.d., heparin 5000 units in the Perma-Cath in both ports, Isentress, Keppra and also Lexiva, amlodipine 10 mg daily, Navane, famotidine 20 mg p.o. daily, Percocet 1 tablet q. 6 hours, Procrit 29364 units 3 times a week, Tylenol, vancomycin 750 mg 3 times a week, vitamin C 500 mg p.o. b.i.d, Zemplar 2 mcg 3 times a week, zinc sulphate 220 mg p.o. daily, and Zosyn 2.25 gm IV q. 6 hours. REVIEW OF SYSTEMS: Significant for non-functioning Perma-Cath and also back pain, and unstageable decubitus ulcers and edema of the upper extremities. All other review of systems are reviewed and are negative. PHYSICAL EXAMINATION: VITAL SIGNS: As follows; blood pressure 123/78, pulse 93, respirations about 20, and temperature 97.5. Height 5 feet and 7 inches, weight is 169 pounds. GENERAL: Mr. Fontenot is a 71 years old elderly male, cachectic, bed ridden for the last 6 months. HEENT: Pupils normal and reactive to light and accommodation. Conjunctivae pink. Sclerae anicteric. Tongue is moist. Trachea is midline. LUNGS: Symmetric on both sides. Bilateral breath sounds present. Occasional basal crackles present. CARDIOVASCULAR SYSTEM: Emmalena at the fifth intercostal space, midclavicular line. S1 and S2 audible. No murmur, no gallop. ABDOMEN: Normal in appearance. Patient has a PEG tube. Abdomen is soft and tympanic. No guarding. No hepatosplenomegaly. CENTRAL NERVOUS SYSTEM: The patient is alert, awake, and oriented x2. Sensory and motor system is grossly within normal limits. EXTREMITIES: No cyanosis, no clubbing. No edema of the legs. Patient has edema of the both upper extremities. Patient also has unstageable sacral decubitus, large as per the registered nurse. LABORATORY DATA: As of 01/17/2017, WBC 6.4, hemoglobin 8.5, hematocrit is 26.4, and platelets 333. PT 13.2, PTT 33, sodium 134, potassium 4.6, chloride 98, CO2 of 27, BUN 52, creatinine 3.9, glucose 82, calcium 9.7, total bili 0.5, AST 44, ALT 33, alkaline phosphatase is 130, total protein 6.8, albumin 2.7. As of 01/18, sodium 131, potassium 5.3, chloride 96, CO2 of 23, BUN 59, creatinine 4.3, glucose 73, calcium 9.4. Other laboratory data, chest X-ray as of 01/17/2017, pulmonary vascular congestion and cardiomegaly with fluid overload. No discrete infiltrate, bilateral pleural effusions, left larger than the right. ASSESSMENT: In summary again, Mr. Fontenot is 71 years old elderly male with multiple medical problems, bed ridden, with non-functioning Perma-Cath, unable to receive dialysis yesterday. 1. End-stage renal disease. Continue hemodialysis 3 times a week. 2. Hyperkalemia secondary to renal failure, missing hemodialysis. 3. Anemia secondary to renal failure, rule-out iron deficiency anemia. 4. Hypoalbuminemia secondary to severe malnutrition. 5. Decubitus, unstageable. 6. Hypertension. Continue his blood pressure medication. 7. HIV positive. Continue his antiretroviral medications as per Dr. Hernadez and also continue vancomycin and Zosyn as per Dr. Hernadez for treatment of decubitus ulcer. Check iron, TIBC, ferritin level and also we will add Pro-Stat 30 mL p.o. 3 times a day. Patient is scheduled for catheter change today and also scheduled for hemodialysis this afternoon after the change of Perma-Cath. Patient underwent hemodialysis this afternoon. We will follow with you. Thank you for allowing me to participate in your patient's care. Raul Geller MD
--- NOTE | 2017-01-19 10:37 | CP.PCM.PN ---
Subjective - Date & Time of Evaluation Date of Evaluation: 01/19/17 Time of Evaluation: 10:34 - Subjective Subjective: Surgery Pt s&e. Pt had HD cath replaced yesterday. Pt tolerated it well. Objective - Vital Signs/Intake and Output Vital Signs (last 24 hours): Temp Pulse Resp BP Pulse Ox 98.1 F 85 20 106/68 100 01/19/17 07:10 01/19/17 07:10 01/19/17 07:10 01/19/17 07:10 01/19/17 07:10 Intake and Output: 01/19/17 01/19/17 06:59 18:59 Intake Total 540 Balance 540 - Medications Medications: Current Medications Acetaminophen (Tylenol 650mg/20.3ml Solution Ud) 650 mg NG Q6 PRN PRN Reason: Fever >100.4 F Albuterol/Ipratropium (Duoneb 3 Mg/0.5 Mg (3 Ml) Ud) 3 ml IH RQ6 [facility] Last Admin: 01/19/17 07:23 Dose: Not Given Amlodipine Besylate (Norvasc) 10 mg PEG DAILY [facility] Apixaban (Eliquis) 2.5 mg PEG BID [facility] Last Admin: 01/18/17 22:36 Dose: 2.5 mg Ascorbic Acid (Vitamin C 500 Mg Tab) 500 mg PEG BID [facility] Clonidine HCl (Catapres Tts1 0.1 Mg/24 Hr) 1 patch TD QWK [facility] Epoetin Chuck (Procrit) 10,000 unit IV TTS [facility] Last Admin: 01/18/17 19:50 Dose: 10,000 unit Famotidine (Pepcid) 20 mg PEG DAILY [facility] Fosamprenavir Calcium (Lexiva) 700 mg PO BID [facility] Last Admin: 01/18/17 22:37 Dose: 700 mg Heparin Sodium (Porcine) (Heparin) 5,000 units IVP TTS [facility] Last Admin: 01/18/17 19:52 Dose: 5,000 units Vancomycin HCl (Vancocin 750mg/D5w 150 Ml) 150 mls @ 100 mls/hr IV MWF [facility] Stop: 01/24/17 09:01 Last Admin: 01/19/17 09:01 Dose: 100 mls/hr Piperacillin Sod/Tazobactam Sod (Zosyn 2.25 Gm Iv Premix) 2.25 gm in 50 mls @ 100 mls/hr IVPB Q6H [facility] Stop: 02/08/17 02:29 Last Admin: 01/19/17 08:45 Dose: 100 mls/hr Levetiracetam (Keppra) 500 mg PO Q12H [facility] Last Admin: 01/19/17 08:45 Dose: 500 mg Oxycodone/Acetaminophen (Percocet 5/325 Mg Tab) 1 tab PO Q6H PRN PRN Reason: Pain, moderate (4-7) Stop: 01/20/17 21:58 Paricalcitol (Zemplar) 2 mcg IV TTS [facility] Last Admin: 01/18/17 19:51 Dose: 2 mcg Raltegravir (Isentress) 400 mg PO BID [facility] Last Admin: 01/18/17 22:37 Dose: 400 mg Ritonavir (Norvir) 100 mg PO DAILY [facility] Zinc Sulfate (Zinc Sulfate 220 Mg Cap) 220 mg PEG DAILY [facility] - Labs Labs: 01/17/17 13:58 01/18/17 13:21 PT 13.2 SECONDS (9.7-12.2) H 01/17/17 13:58 INR 1.2 01/17/17 13:58 APTT 33 SECONDS (21-34) 01/17/17 13:58 - Constitutional Appears: Non-toxic - Head Exam Head Exam: ATRAUMATIC, NORMAL INSPECTION, NORMOCEPHALIC - Eye Exam Eye Exam: EOMI, Normal appearance, PERRL Pupil Exam: NORMAL ACCOMODATION, PERRL - ENT Exam ENT Exam: Mucous Membranes Moist, Normal Exam - Neck Exam Neck Exam: Full ROM, Normal Inspection. absent: Lymphadenopathy - Respiratory Exam Respiratory Exam: Clear to Ausculation Bilateral, NORMAL BREATHING PATTERN - Cardiovascular Exam Cardiovascular Exam: REGULAR RHYTHM, +S1, +S2. absent: Murmur - GI/Abdominal Exam GI & Abdominal Exam: Soft, Normal Bowel Sounds. absent: Distended, Tenderness - Extremities Exam Additional comments: L groin has dressing. C/D/I. R HD cath in place. - Skin Skin Exam: Dry, Intact, Normal Color, Warm Assessment and Plan - Assessment and Plan (Free Text) Assessment: POD 1 s/p removal of L fem HD cath. Insertion of R fem HD cath. -OK to use HD cath DW Dr. Wagner
--- NOTE | 2017-01-19 12:07 | CP.PCM.CON ---
History of Present Illness - History of Present Illness History of Present Illness: Palliative consult Requested by Moises Mckeon MD Reason: Goals of care Patient is a 71 yo male admitted from [facility] with non working HD catheter. On 01/18/17 patient received new Permacath to right groin. On admission Albumin 2.7, Hb 8.5. PMH: CHF, colonic polyps, HIV, HTN, ESRD with HD, PEG, pneumonia, prostate cancer, polycystic kidneys Soc. Hx: , [place] resident Fan. hx: not documented, patient unable to provide any Review of Systems - Review of Systems All systems: reviewed and no additional remarkable complaints except Review of Systems: ROS obtained from nursing. As per nursing, patient is S/P Permacath placement day # 1 and in no acute distress. Past Patient History - Infectious Disease Hx of Infectious Diseases: None - Tetanus Immunizations Tetanus Immunization: Unknown - Past Medical History & Family History Past Medical History?: Yes - Past Social History Smoking Status: Former Smoker - CARDIAC Hx Congestive Heart Failure: Yes Hx Hypertension: Yes Hx Peripheral Edema: Yes - PULMONARY Hx Respiratory Disorders: No Other/Comment: tracheostomy - NEUROLOGICAL Hx Neurological Disorder: No - HEENT Hx HEENT Problems: No - RENAL Hx Chronic Kidney Disease: Yes Hx Dialysis: Yes Type of Dialysis Access: L femoral artery Date of Last Dialysis Treatment: 01/17/17 Hx Renal Failure: Yes - ENDOCRINE/METABOLIC Hx Endocrine Disorders: No - HEMATOLOGICAL/ONCOLOGICAL Hx Human Immunodeficiency Virus (HIV): Yes - INTEGUMENTARY Hx Dermatological Problems: No Other/Comment: multiple skin ulcers, bilat back, sacro-coccyx, healing sores both lower exts and buttocks sacral stage 4 ulcer [id number],. left hip unstageable,,stage 3 bilat back,right side 6cm x 2 cm. right mid back skin ulcer stage 2, 6cm x 3 cm,, multiple hip areas in healing stage dsd on back and sacral ulcers, - MUSCULOSKELETAL/RHEUMATOLOGICAL Hx Falls: No - GASTROINTESTINAL Hx Gastrointestinal Disorders: Yes Hx Gastroesophageal Reflux: Yes Hx Hemorrhoids: Yes Hx Ulcer: Yes Other/Comment: PEG tube in place - GENITOURINARY/GYNECOLOGICAL Hx Genitourinary Disorders: Yes Hx Prostate Cancer: Yes (2010 HAD RADIATION WITH SEED IMPLANT; NO SURGERY) Other/Comment: ESRD ON HD pt is anuric - PSYCHIATRIC Hx Substance Use: No - ANESTHESIA Hx Anesthesia: Yes Hx Anesthesia Reactions: No Hx Malignant Hyperthermia: No Meds Allergies/Adverse Reactions: Allergies Allergy/AdvReac Type Severity Reaction Status Date / Time No Known Allergies Allergy Verified 01/17/17 12:31 - Medications Medications: Current Medications Acetaminophen (Tylenol 650mg/20.3ml Solution Ud) 650 mg NG Q6 PRN PRN Reason: Fever >100.4 F Albuterol/Ipratropium (Duoneb 3 Mg/0.5 Mg (3 Ml) Ud) 3 ml IH RQ6 [facility] Last Admin: 01/19/17 07:23 Dose: Not Given Amlodipine Besylate (Norvasc) 10 mg PEG DAILY [facility] Last Admin: 01/19/17 11:00 Dose: 10 mg Apixaban (Eliquis) 2.5 mg PEG BID [facility] Last Admin: 01/19/17 11:00 Dose: 2.5 mg Ascorbic Acid (Vitamin C 500 Mg Tab) 500 mg PEG BID [facility] Last Admin: 01/19/17 11:00 Dose: 500 mg Clonidine HCl (Catapres Tts1 0.1 Mg/24 Hr) 1 patch TD QWK [facility] Epoetin Chuck (Procrit) 10,000 unit IV TTS [facility] Last Admin: 01/18/17 19:50 Dose: 10,000 unit Famotidine (Pepcid) 20 mg PEG DAILY [facility] Last Admin: 01/19/17 11:00 Dose: 20 mg Fosamprenavir Calcium (Lexiva) 700 mg PO BID [facility] Last Admin: 01/19/17 11:00 Dose: 700 mg Heparin Sodium (Porcine) (Heparin) 5,000 units IVP TTS [facility] Last Admin: 01/18/17 19:52 Dose: 5,000 units Vancomycin HCl (Vancocin 750mg/D5w 150 Ml) 150 mls @ 100 mls/hr IV MWF [facility] Stop: 01/24/17 09:01 Last Admin: 01/19/17 09:01 Dose: 100 mls/hr Piperacillin Sod/Tazobactam Sod (Zosyn 2.25 Gm Iv Premix) 2.25 gm in 50 mls @ 100 mls/hr IVPB Q6H [facility] Stop: 02/08/17 02:29 Last Admin: 01/19/17 08:45 Dose: 100 mls/hr Levetiracetam (Keppra) 500 mg PO Q12H [facility] Last Admin: 01/19/17 08:45 Dose: 500 mg Oxycodone/Acetaminophen (Percocet 5/325 Mg Tab) 1 tab PO Q6H PRN PRN Reason: Pain, moderate (4-7) Stop: 01/20/17 21:58 Paricalcitol (Zemplar) 2 mcg IV TTS [facility] Last Admin: 01/18/17 19:51 Dose: 2 mcg Raltegravir (Isentress) 400 mg PO BID [facility] Last Admin: 01/19/17 11:00 Dose: 400 mg Ritonavir (Norvir) 100 mg PO DAILY [facility] Last Admin: 01/19/17 11:00 Dose: 100 mg Zinc Sulfate (Zinc Sulfate 220 Mg Cap) 220 mg PEG DAILY [facility] Last Admin: 01/19/17 11:00 Dose: 220 mg Physical Exam - Constitutional Appears: Chronically Ill - Head Exam Head Exam: ATRAUMATIC, NORMAL INSPECTION, NORMOCEPHALIC - Eye Exam Eye Exam: Normal appearance, PERRL Pupil Exam: NORMAL ACCOMODATION, PERRL - ENT Exam ENT Exam: Mucous Membranes Dry - Neck Exam Neck exam: Positive for: Normal Inspection - Respiratory Exam Respiratory Exam: Decreased Breath Sounds - Cardiovascular Exam Cardiovascular Exam: REGULAR RHYTHM - GI/Abdominal Exam GI & Abdominal Exam: Normal Bowel Sounds - Rectal Exam Rectal Exam: Deferred - Exam Additional comments: On HD, anuric - Extremities Exam Extremities exam: Positive for: pedal edema - Back Exam Additional comments: large sacral ulcers, 9cm X 8cm and 5x6x2 - Neurological Exam Neurological exam: Alert, Altered - Psychiatric Exam Psychiatric exam: Flat Affect - Skin Skin Exam: Pallor Results - Vital Signs Recent Vital Signs: Last Vital Signs Temp 98.1 F 01/19/17 07:10 Pulse 85 01/19/17 07:10 Resp 20 01/19/17 07:10 BP 106/68 01/19/17 07:10 Pulse Ox 100 01/19/17 07:10 - Labs Result Diagrams: 01/17/17 13:58 01/18/17 13:21 Labs: Laboratory Results - last 24 hr 01/18/17 13:21 Sodium 131 L Potassium 5.3 H Chloride 96 L Carbon Dioxide 23 Anion Gap 17 BUN 59 H Creatinine 4.3 H Est GFR ( Amer) 17 Est GFR (Non-Af Amer) 14 Random Glucose 73 L Calcium 9.4 Assessment & Plan - Assessment and Plan (Free Text) Assessment: palliative consult Code status DNR/DNI, POLST on chart, PPS 10% I reviewed medical records, all diagnostic studis, examined patient in the bed and discussed his condition with nursing. Patient is alert, altered, answer simple questions and reacts to tactile stimulus. Affect is flat. Patient looks chronically ill. There is significant edema to right arm where is PICC line. patient reacts in pain upon light touch. Left arm swollen less than right, also very sensitive to touch. Percocet PRN on board. Pedal edema. very decreased ROM. Right groin Portocath since yesterday. There are large pressure sores patient was admitted with and are treated by wound nurse. BP 106/68, HR 85, O2Sat 100% NC. Hb 8.5, Procrit on board. WBC 6.4, Na 131, Alb 2.7. Afebrile. Zosyn and Vanco IV on board. Impression * This is a very ick man with complex medical Hx * Patient is not able to fully express his basic needs due to condition * Edema of upper and lower extremities, poor perfusion and high risk for further worsening of skin condition * Sacral pressure sores * Chronic pain due to prolonged bed rest and edema Suggestion * Would consider pain meds around the clock as opposed to PRN since patient's pain is chronic in nature and needs to be managed by long acting pain agents; would consider low dose of Fentanyl patch * Patient needs aggressive sacral wounds treatment * Elevate both arms * Monitor Hb for acute blood loss * Air mattress and repositioning Q 2 hr at least * Oral hygiene * Aspiration prevention * Agree with DNR/DNI Thank you for consulting Palliative care
--- NOTE | 2017-01-19 14:29 | CP.PCM.PN ---
Subjective - Date & Time of Evaluation Date of Evaluation: 01/19/17 Time of Evaluation: 08:00 - Subjective Subjective: no fever all cultures neg thus far Objective - Vital Signs/Intake and Output Vital Signs (last 24 hours): Temp Pulse Resp BP Pulse Ox 98.1 F 85 20 106/68 100 01/19/17 07:10 01/19/17 07:10 01/19/17 07:10 01/19/17 07:10 01/19/17 07:10 Intake and Output: 01/19/17 01/19/17 06:59 18:59 Intake Total 540 Balance 540 - Medications Medications: Current Medications Acetaminophen (Tylenol 650mg/20.3ml Solution Ud) 650 mg NG Q6 PRN PRN Reason: Fever >100.4 F Albuterol/Ipratropium (Duoneb 3 Mg/0.5 Mg (3 Ml) Ud) 3 ml IH RQ6 REPLACED BY [facility] Last Admin: 01/19/17 13:20 Dose: Not Given Amlodipine Besylate (Norvasc) 10 mg PEG DAILY REPLACED BY [facility] Last Admin: 01/19/17 11:00 Dose: 10 mg Apixaban (Eliquis) 2.5 mg PEG BID REPLACED BY [facility] Last Admin: 01/19/17 11:00 Dose: 2.5 mg Ascorbic Acid (Vitamin C 500 Mg Tab) 500 mg PEG BID REPLACED BY [facility] Last Admin: 01/19/17 11:00 Dose: 500 mg Clonidine HCl (Catapres Tts1 0.1 Mg/24 Hr) 1 patch TD QWK REPLACED BY [facility] Epoetin Chuck (Procrit) 10,000 unit IV TTS REPLACED BY [facility] Last Admin: 01/18/17 19:50 Dose: 10,000 unit Famotidine (Pepcid) 20 mg PEG DAILY REPLACED BY [facility] Last Admin: 01/19/17 11:00 Dose: 20 mg Fosamprenavir Calcium (Lexiva) 700 mg PO BID REPLACED BY [facility] Last Admin: 01/19/17 11:00 Dose: 700 mg Heparin Sodium (Porcine) (Heparin) 5,000 units IVP TTS REPLACED BY [facility] Last Admin: 01/18/17 19:52 Dose: 5,000 units Vancomycin HCl (Vancocin 750mg/D5w 150 Ml) 150 mls @ 100 mls/hr IV MWF REPLACED BY [facility] Stop: 01/24/17 09:01 Last Admin: 01/19/17 09:01 Dose: 100 mls/hr Piperacillin Sod/Tazobactam Sod (Zosyn 2.25 Gm Iv Premix) 2.25 gm in 50 mls @ 100 mls/hr IVPB Q6H REPLACED BY [facility] Stop: 02/08/17 02:29 Last Admin: 01/19/17 08:45 Dose: 100 mls/hr Levetiracetam (Keppra) 500 mg PO Q12H REPLACED BY [facility] Last Admin: 01/19/17 08:45 Dose: 500 mg Oxycodone/Acetaminophen (Percocet 5/325 Mg Tab) 1 tab PO Q6H PRN PRN Reason: Pain, moderate (4-7) Stop: 01/20/17 21:58 Paricalcitol (Zemplar) 2 mcg IV TTS REPLACED BY [facility] Last Admin: 01/18/17 19:51 Dose: 2 mcg Raltegravir (Isentress) 400 mg PO BID REPLACED BY [facility] Last Admin: 01/19/17 11:00 Dose: 400 mg Ritonavir (Norvir) 100 mg PO DAILY REPLACED BY [facility] Last Admin: 01/19/17 11:00 Dose: 100 mg Zinc Sulfate (Zinc Sulfate 220 Mg Cap) 220 mg PEG DAILY REPLACED BY [facility] Last Admin: 01/19/17 11:00 Dose: 220 mg - Labs Labs: 01/17/17 13:58 01/18/17 13:21 PT 13.2 SECONDS (9.7-12.2) H 01/17/17 13:58 INR 1.2 01/17/17 13:58 APTT 33 SECONDS (21-34) 01/17/17 13:58 - Constitutional Appears: Non-toxic, Cachectic, Chronically Ill - Head Exam Head Exam: NORMOCEPHALIC - Eye Exam Eye Exam: PERRL - ENT Exam ENT Exam: Mucous Membranes Dry - Neck Exam Neck Exam: absent: Lymphadenopathy - Respiratory Exam Respiratory Exam: Decreased Breath Sounds - Cardiovascular Exam Cardiovascular Exam: REGULAR RHYTHM - GI/Abdominal Exam GI & Abdominal Exam: Distended, Soft - Rectal Exam Rectal Exam: Deferred - Exam Exam: NORMAL INSPECTION - Extremities Exam Extremities Exam: absent: Pedal Edema - Back Exam Back Exam: absent: CVA tenderness (L), CVA tenderness (R) - Neurological Exam Neurological Exam: Alert, Awake, Motor Sensory Deficit, Oriented x3. absent: Reflexes Normal - Psychiatric Exam Psychiatric exam: Depressed - Skin Skin Exam: Dry Assessment and Plan (1) Admission for dialysis and dialysis catheter care Status: Acute (2) Anemia Status: Acute (3) CHF (congestive heart failure) Status: Acute (4) Decubitus skin ulcer Status: Acute (5) ESRD (end stage renal disease) Status: Acute (6) HIV (human immunodeficiency virus infection) Status: Acute (7) HTN (hypertension) Status: Acute (8) Hepatitis C antibody test positive Status: Acute
[2017-01-19 16:08] VITALS: RESP 18; TEMP 98.5
[2017-01-19 16:36] VITALS: BP 121/75; PULSE 87
--- NOTE | 2017-01-19 18:04 | CP.PCM.PN ---
Subjective - Date & Time of Evaluation Date of Evaluation: 01/19/17 Time of Evaluation: 09:00 - Subjective Subjective: PGY3 on medicine Dr. Mckeon service: Pt seen and examined at bedside this morning. No acute events overnight per RN. S/P HD catheter placement yesterday at right groin. Pt to discharge to [facility] today. Objective - Vital Signs/Intake and Output Vital Signs (last 24 hours): Temp Pulse Resp BP Pulse Ox 98.5 F 87 18 121/75 100 01/19/17 15:06 01/19/17 16:36 01/19/17 15:06 01/19/17 16:36 01/19/17 15:06 Intake and Output: 01/19/17 01/19/17 06:59 18:59 Intake Total 540 200 Output Total 1 Balance 540 199 - Labs Labs: 01/17/17 13:58 01/18/17 13:21 PT 13.2 SECONDS (9.7-12.2) H 01/17/17 13:58 INR 1.2 01/17/17 13:58 APTT 33 SECONDS (21-34) 01/17/17 13:58 - Constitutional Appears: Non-toxic, No Acute Distress, Chronically Ill - Head Exam Head Exam: NORMOCEPHALIC - Eye Exam Eye Exam: Normal appearance Pupil Exam: NORMAL ACCOMODATION - Respiratory Exam Respiratory Exam: Clear to Ausculation Bilateral, NORMAL BREATHING PATTERN - Cardiovascular Exam Cardiovascular Exam: REGULAR RHYTHM, +S1, +S2. absent: Gallop, Rubs - GI/Abdominal Exam GI & Abdominal Exam: Soft, Normal Bowel Sounds. absent: Tenderness - Extremities Exam Additional comments: right dialysis catheter dressing C/D/I, left groin dressing C/D/I - Neurological Exam Neurological Exam: Alert, Awake, Oriented x3 - Psychiatric Exam Psychiatric exam: Normal Mood - Skin Skin Exam: Intact Assessment and Plan - Assessment and Plan (Free Text) Assessment: ESRD on dialysis, malfunctioned catheter Nephro: Dr. Haines, help appreciated S/P right HD placement. Will DC today to [facility]. HIV Dr. Hernadez, ID, help appreciated -f/u Viral load Lexiva 700mg PO BID Raltegravir 400mg PO BID Ritonavir 100mg PO Daily Hx of Hepatitis C Dr. 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 Hx of prostate cancer 2009 - radiation with seed implant Hyperkalemia 5.3 on AM labs pt for dialysis after HD placement -check in AM All management per Dr. Brian Mckeon
== END 2017-01-19 17:10 | DRG 314 ==
LOC: C.ER 12:17 → C.9E 17:02 → C.6T 01-18 00:33
PROVIDERS: ADMIT Internal Medicine Nephrology; ATTEND Internal Medicine Nephrology
PROC: 06PY33Z Removal of Infusion Device from Lower Vein, Percutaneous Approach (ICD-10-PCS; 2017-01-18)
PROC: B54BZZA Ultrasonography of Right Lower Extremity Veins, Guidance (ICD-10-PCS; 2017-01-18)
PROC: 06H033Z Insertion of Infusion Device into Inferior Vena Cava, Percutaneous Approach (ICD-10-PCS; principal; 2017-01-18 12:15)
DX: T82.41XA Breakdown (mechanical) of vascular dialysis catheter, initial encounter (principal); B20 Human immunodeficiency virus [HIV] disease; E43 Unspecified severe protein-calorie malnutrition; L89.159 Pressure ulcer of sacral region, unspecified stage; I13.2 Hypertensive heart and chronic kidney disease with heart failure and with stage 5 chronic kidney disease, or end stage renal disease; Z93.0 Tracheostomy status; F03.90 Unspecified dementia, unspecified severity, without behavioral disturbance, psychotic disturbance, mood disturbance, and anxiety; N18.6 End stage renal disease; I82.C22 Chronic embolism and thrombosis of left internal jugular vein; I50.9 Heart failure, unspecified; E87.5 Hyperkalemia; L89.95 Pressure ulcer of unspecified site, unstageable; D63.1 Anemia in chronic kidney disease; Y84.1 Kidney dialysis as the cause of abnormal reaction of the patient, or of later complication, without mention of misadventure at the time of the procedure; B18.2 Chronic viral hepatitis C; G89.29 Other chronic pain; Z66 Do not resuscitate; Z85.46 Personal history of malignant neoplasm of prostate; Z86.010 Personal history of colon polyps; Z86.718 Personal history of other venous thrombosis and embolism; Z87.891 Personal history of nicotine dependence